=== PATIENT | female | born 1945 | race Caucasian/White ===

== ENCOUNTER 2018-07-31 02:50 | Outpatient (CLI) | payer OTHER, SELFPAY ==
[2018-07-31 11:24] LABS: Anion Gap 8.6 mmol/L (3-11); BUN 15 mg/dL (7-18); CO2 31.4 mmol/L (21.0-32.0); CREATININE 0.81 mg/dL (0.55-1.02); Calcium 9.3 mg/dL (8.5-10.1); Chloride 103 mmol/L (98-107); Cholesterol 194 mg/dL (50-200); Glucose 94 mg/dL (70-100); HDL Cholesterol 65 mg/dL (40-60); LDL CHOLESTEROL 97 mg/dL (<100); Potassium 4.2 mmol/L (3.5-5.1); Sodium 143 mmol/L (136-145); Triglyceride 174 mg/dL (30-150)
[2018-07-31 11:29] LABS: Hemoglobin A1C 4.9 % (4.5-6.2)
== END 2018-07-31 03:10 ==
PROVIDERS: PCP Nurse Practitioner Family; Visit Provider Nurse Practitioner Family
DX: E78.5 Hyperlipidemia, unspecified (principal); I10 Essential (primary) hypertension; Z13.1 Encounter for screening for diabetes mellitus
CPT/HCPCS: 36415; 80048; 80061; 83721; 83036

== ENCOUNTER 2018-08-17 00:17 | Outpatient (CLI) | payer OTHER, SELFPAY ==
--- NOTE | 2018-08-17 07:30 | DI.MAMMO_ITS ---
SYMPTOM/DIAGNOSIS: SCREENING MAMMOGRAMS: Mammograms were interpreted according to the usual protocol including computer analysis with CAD system, tomosynthesis and C view imaging. Comparison is made with exams from [id number]. The breasts are composed of scattered fibroglandular densities. No suspicious masses or suspicious microcalcifications are seen. There has been no significant change. IMPRESSION: Category 1, negative mammogram. Yearly screening mammography is recommended. Breast density, category B. SA ASSESSMENT OF FINDINGS: Negative. Category 1. Patient will receive a letter notifying them of these results. BI-RADS category B. There are scattered areas of fibroglandular density.
== END 2018-08-17 00:37 ==
PROVIDERS: PCP Nurse Practitioner Family; Visit Provider Nurse Practitioner Family
DX: Z12.31 Encounter for screening mammogram for malignant neoplasm of breast (principal)
CPT/HCPCS: 77063; 77067

== ENCOUNTER → 2018-10-09 08:15 | Outpatient (BNVA) | payer OTHER, SELFPAY | PROVIDERS: PCP Nurse Practitioner Family; Referring Provider Nurse Practitioner Family; Visit Provider Surgery | DX: Z87.19 Personal history of other diseases of the digestive system (principal); I10 Essential (primary) hypertension | CPT/HCPCS: 99213 ==

== ENCOUNTER 2018-11-10 07:01 | Day surgery (SDC) | payer OTHER, SELFPAY ==
--- NOTE | 2018-11-10 06:42 | W.PM.ENDDOP ---
Date of service: 11/10/18 Time of Service: 08:40 Endoscopy Report DATE OF PROCEDURE: 11/10/18 PRE-OP DIAGNOSIS: Cueva's esophagus POST-OP DIAGNOSIS: other (Cueva's, Duodenal mass, gastric inflammation) PROCEDURE: EGD with biopsies SURGEON: Alysha Joy ANESTHESIA: other (General/ ASA 2 /Arley Mendez, JOSEPHINE) ESTIMATED BLOOD LOSS: 3 PATHOLOGY: other (Duodenal mass bx, pyloric bx, GE junction bx) COMPLICATIONS: None DISPOSITION: same day INDICATIONS: Mrs. Metz is a pleasant 72 year old female with a PMHx significant for Cueva's with low grade dysplacia. [place] [facility] [place] recommended repeat EGD in 1 year. Risks, benefits and complications have been reviewed. Complications include but are not limited to bleeding, pain, perforation, sore throat, aspiration, and adverse reaction to the medications. Questions were entertained and answered to their satisfaction and they wished to proceed. No guarantees were given or implied. FINDINGS: Carpet like polyp in the duodenal bulb Inflammation of the pylorus Cueva's esophagitis PROCEDURE DESCRIPTION: After informed consent was obtained the patient was take to the procedure room and placed in a supine position. Monitors were applied and a time out was done. The patients name, date of , procedure type, allergies to medications and metal in their body was reviewed. A bite block was placed and the patient was sedated. Once sedated and comfortable the gastroscope was advanced through the oropharynx which was grossly normal into the esophagus. The proximal and mid-esophagus were normal. In the distal esophagus there was inflammation noted and also irregularity of the GE junction noted. The scope was advanced into the stomach and through the pylorus into the 3rd portion of the duodenum. The 2nd and third portion of the duodenum was noted to be normal. In the 1st portion there was a carpet like mass. Biopsies were done of the mass. The scope was retracted back into the stomach and inflammation of the pylorus was noted. Biopsies were done. There were no ulcers. The scope was retro-flexed. The cardia and fundus were noted to be normal. The scope was retracted back into the esophagus and biopsies were done of the GE junction for surveillance of her known Cueva's. The Z line was irregular. The GE junction was at 35 cm. The scope was removed and the patient was woken up and taken back to [facility] in stable condition. Follow up: Will await pathology results and have her follow up with [facility] as well.
--- NOTE | 2018-11-10 06:45 | PDOC.DSDIS_ITS ---
Discharge Plan Disposition Patient Disposition: HOME Condition: Good Discharge Details Reason For Visit: Cueva's with dysplacia Attending Provider: Alysha Joy Primary Care Provider: Mary Lou Palacios Home Meds and New Rx's Prescriptions: Continued varicella-zoster gE-AS01B (PF) 50 mcg/0.5 mL suspension for reconstitution 0.5 ml IM ONCE Qty: 1 RF: 0 multivitamin [Multi-Day] 1 EACH tablet 1 ea PO DAILY RF: 0 calcium carbonate-vitamin D3 1 EACH tablet 1 ea PO BID RF: 0 lisinopril-hydrochlorothiazide 10-12.5 mg tablet 1 tab PO DAILY Qty: 90 RF: 4 simvastatin 40 mg tablet 40 mg PO DAILY Qty: 90 RF: 4 Discharge Instructions Instructions: Upper Endoscopy (GEN) Additional Instructions: Findings: Again noted was a mass/ large polyp of the duodenum. I re-did the biopsies Inflammation of the pylorus Cueva's Follow up: I will call with results and I would [place] [facility] [place] Please call if you develop: fevers >101.5 Nausea or Vomiting Abdominal pain that is not transient DAY SURGERY UNIT POST COLONOSCOPY INSTRUCTIONS 1. Because there will be medication in your system for the next 24 hours, you may feel a little sleepy. Your coordination will be affected. Therefore: a. Do not drive or operate dangerous equipment for 24 hours. b. Do not drink alcohol beverages for 24 hours (not even beer). c. Plan to go home and rest for the day. 2. Generally there are no restrictions on your activity after a day or so has gone by, but you may feel a bit fatigued for a few days. 3 After you arrive home you may have a light meal and return to a normal diet as you can tolerate it without feeling sick to your stomach. 4. After surgery, you may feel pain or discomfort. This should be only transient, but if it persists please contact your doctor. 5. If there are any questions regarding the findings of your procedure, please feel free to contact your doctor. 6. If you are unable to contact your doctor with a problem, contact the hospital at [phone]. 7. Continue all your regular medications unless directed otherwise. I understand the above instructions and have no questions. Signature of Patient or Responsible Adult Escort Date/Time Name of Responsible Adult Escort Signature of Nurse Date/Time Activity:: Activity as Tolerated Diet:: As Tolerated Discharge Orders Discharge Orders: Discharge Order (Routine); Ordered 11/10/18 Ordered By: Alysha Joy DS: Diagnosis Discharge Diagnosis (1) History of Cueva's esophagus: Status: Acute (2) EGD - MAC: Status: Acute
[2018-11-10 07:10] VITALS: BP 153/72; PULSE 62; RESP 16; TEMP 36.2; O2SAT 99
[2018-11-10] MEDS: Lactated Ringers 1,000 ML 80 ML IV (07:45)
--- NOTE | 2018-11-10 08:30 | HPE_ITS ---
Date of service: 11/10/18 Time of Service: 08:31 Assessment and Plan (1) History of Cueva's esophagus: Current visit: No Status: Acute P\\ EGD with biopsies Risks, benefits and complications have been reviewed. Complications include but are not limited to bleeding, pain, perforation, sore throat, aspiration, and adverse reaction to the medications. Questions were entertained and answered to their satisfaction and they wished to proceed. No guarantees were given or implied. History of Present Illness Narrative: Mrs. Metz is a pleasant 72 year old female with a history of Cueva's esophagus who is here for a repeat EGD. She was seen at [facility] gastroenterology due to her diagnosis of Cueva's with mild dysplasia. She is status post Sae fundoplication in 2002. Prior to her fundoplication she had a lot of severe reflux type symptoms. Since her Sae she has had no symptoms but continues to have Cueva's with low-grade dysplasia. She had an EGD done in [address] Valencia and he started her on Zantac and had her take that for a year. He then repeated her EGD in 2018 and she continued to have Cueva's with low-grade dysplasia. As she is asymptomatic she is not currently taking any antacids. [facility] recommended another EGD in a year and she is here now to discuss that. She continues to be completely asymptomatic. She has no dysphasia, no heartburn and no burning chest pain. She denies any chest pain, shortness of breath or history of AR. [facility] Medical History Cervical cancer (Resolved ~1992) Essential hypertension (Resolved 06/09/13) GERD (gastroesophageal reflux disease) (Resolved) History of Cueva's esophagus (Resolved 2001) Hyperlipidemia (Resolved 07/17/12) Osteoarthritis (Resolved 07/28/17) Sigmoid diverticulosis (Resolved) Surgical History Colonoscopy - IV Sedation (Inactive 11/06/16) EGD - MAC (Acute 11/10/18) History of bilateral ligation of fallopian tubes (Inactive) S/P tonsillectomy (Inactive) Status post LEEP (loop electrosurgical excision procedure) of cervix (Inactive ~1992) Status post Sae fundoplication (Inactive 04/13/02) Family History Mother Essential hypertension Hyperlipidemia Type 2 diabetes mellitus Colon cancer Father Type 2 diabetes mellitus Sister Essential hypertension Hyperlipidemia Neoplasm Sister No problems noted. Sister No problems noted. Sister No problems noted. Sister No problems noted. Brother Neoplasm Brother No problems noted. Brother No problems noted. Son Hypertension Son Hypertension Hyperlipidemia Daughter Depression Maternal Grandfather Heart disease Maternal Grandmother Heart disease Paternal Grandfather Hypertension Heart disease Paternal Grandmother Heart disease Social History Smoking/Tobacco Use Status: Never Second Hand Exposure: Yes Alcohol Intake: current Alcohol Intake frequency: holidays/special occasions only Alcohol type: wine and hard liquor Drug use: Never Substance use type: does not use Caregiver/Support person: No Household members: none Housing: house Communication Needs: None Do you need help understanding health information?: Rarely Pets and animals: Yes Pets and animals: cat(s) Sexually active: No Do you think of yourself as: straight/heterosexual Current gender identity: female What is your relationship status?: How often do you talk on the phone with friends or family?: three or more times per week How often do you get together with friends or relatives?: three or more times per week How often do you attend quaker or zoroastrianism services?: 1-3 times per year Do you belong to any clubs or organized social groups?: no Panel score (0-1 are the most socially isolated patients): 1 What type of physical activity do you participate in: walking Duration: > 90 minutes/day Frequency: daily Yoly/Mormonism: Gnosticist Special yoly needs: No Seatbelt use: always Helmet use: No Drive intox or ride w/intox 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 Do you feel safe at home: Yes Female Reproductive History Menstrual Menopause type: natural History History 4 Para Hx # Term Pregnancies Multiple births Hx # Pregnancies Ectopic pregnancies AB induced Hx Number of Living Children 3 AB spontaneous 1 Meds Home Medications Medication Instructions Recorded Confirmed Type calcium carbonate-vitamin D3 1 ea PO BID 07/16/12 11/10/18 History multivitamin [Multi-Day] 1 ea PO DAILY 07/16/12 11/10/18 History varicella-zoster gE-AS01B (PF) 50 0.5 ml IM ONCE #1 each 08/03/18 10/09/18 Rx mcg/0.5 mL IM susp kit lisinopril 10 1 tab PO DAILY #90 tab-cap 10/14/18 11/10/18 Rx mg-hydrochlorothiazide 12.5 mg tablet simvastatin 40 mg tablet 40 mg PO DAILY #90 tab-cap 10/14/18 11/10/18 Rx Allergies Allergy/AdvReac Type Severity Reaction Status Date / Time cephalexin [Cephalexin] Allergy Mild Verified 11/10/18 07:17 clindamycin Allergy Mild Verified 11/10/18 07:17 hydrocodone Allergy Mild itching Verified 11/10/18 07:17 Penicillins Allergy Unknown Verified 11/10/18 07:17 atorvastatin AdvReac Mild Verified 11/10/18 07:17 Exam Resp Effort & Inspection: normal respiratory effort Auscultation: clear to auscultation bilaterally Cardio Rate: regular rate Rhythm: regular rhythm Results Last Vital Signs Temp 97.2 F L 11/10/18 07:10 Pulse 62 11/10/18 07:10 Resp 16 11/10/18 07:10 BP 153/72 H 11/10/18 07:10 Pulse Ox 99 11/10/18 07:10
[2018-11-10] MEDS: Lidocaine 2% Viscous 15 ML CUP (08:35)
[2018-11-10] MEDS: Lidocaine 2% Pres-Free 5 ML VIAL (08:35)
[2018-11-10] MEDS: Midazolam 2 MG/2 ML VIAL (08:35)
[2018-11-10] MEDS: fentaNYL 100 MCG/2 ML VIAL (08:35)
--- NOTE | 2018-11-10 08:43 | STOM_PTH ---
PATIENT: Ashlie Metz LOC: [facility] U#:[id number] AGE/SX: 72/F ROOM: RE11/10/[address]: Alysha Joy MD : 1945 BED: DIS: 11/10/2018 SPEC #: [id number] RECD: 11/10/18 13:01 STATUS: [facility] #: [id number] STEVE: 11/10/18 08:[address]: Alysha Joy DEPT: Surgical Specimen RECD BY: Patricia Salinas ENTERED: 11/10/18 13:03 SP TYPE: STOMACH OTHR DR: KURT Gerard Tissues: 1 - BIOPSY BOWEL 2 - STOMACH BIOPSY 3 - ESOPHAGUS BIOPSY Procedures: GROSS AND MICRO LEVEL 4 Comments: [id number]
[2018-11-10 09:30] VITALS: BP 109/60; PULSE 54; RESP 17; TEMP 36; O2SAT 96
== END 2018-11-10 10:20 | disposition home or self-care (01) ==
LOC: SUR 07:01
PROVIDERS: PCP Nurse Practitioner Family; Visit Provider Surgery
PROC: 0DJ68ZZ Inspection of Stomach, Via Natural or Artificial Opening Endoscopic (ICD-10-PCS; CPT 43235; principal; 2018-11-10 08:30)
DX: K31.7 Polyp of stomach and duodenum (principal); Z87.19 Personal history of other diseases of the digestive system; K31.89 Other diseases of stomach and duodenum; K21.0 Gastro-esophageal reflux disease with esophagitis; I10 Essential (primary) hypertension
CPT/HCPCS: 43239; 88305; NC; J2250; J3010

== ENCOUNTER 2020-07-17 04:03 | Outpatient (CLI) | payer OTHER, SELFPAY ==
[2020-07-17 13:21] LABS: Anion Gap 10.3 mmol/L (3-11); BUN 18 mg/dL (7-18); CO2 29.7 mmol/L (21.0-32.0); CREATININE 0.8 mg/dL (0.55-1.02); Calcium 9.1 mg/dL (8.5-10.1); Calculated LDL 97 mg/dL (<100); Chloride 104 mmol/L (98-107); Cholesterol 198 mg/dL (<200); Glucose 91 mg/dL (74-106); HDL Cholesterol 66 mg/dL (40-60); Potassium 4.2 mmol/L (3.5-5.1); Sodium 144 mmol/L (136-145); Triglyceride 175 mg/dL (<150)
== END 2020-07-17 04:04 | disposition home or self-care (01) ==
LOC: LOS 04:03
PROVIDERS: PCP Nurse Practitioner Family; Visit Provider Nurse Practitioner Family
DX: E78.5 Hyperlipidemia, unspecified (principal)
CPT/HCPCS: 36415; 80048; 80061

== ENCOUNTER 2020-07-28 01:09 | Outpatient (CLI) | payer OTHER, SELFPAY ==
[2020-07-28 12:22] LABS: HGB 11.9 g/dL (11.2-15.7); MCH 31.5 pg (27.0-33.0); MCHC 32.2 % (32.0-36.0); MCV 97.9 fL (80-95); MPV 11.6 fL (8.0-11.0); Platelet Count 243 10^3/uL (130-400); RBC 3.78 10^6/uL (3.93-5.22); RDW 16.6 % (11.7-14.6); RDW-SD 59.7 fL
[2020-07-28 12:44] LABS: ALT 24 U/L (14-59); AST 16 U/L (15-37); Alkaline Phosphatase 95 U/L (46-116); Bilirubin, Direct 0.1 mg/dL (0.0-0.2); Bilirubin, Total 0.5 mg/dL (0.2-1.0); TSH (W/Ref FT4) 2.18 uIU/mL (0.36-3.74); Total Protein 7.2 g/dL (6.4-8.2)
== END 2020-07-28 01:10 | disposition home or self-care (01) ==
LOC: LOS 01:09
PROVIDERS: PCP Nurse Practitioner Family; Visit Provider Nurse Practitioner Family
DX: R53.83 Other fatigue (principal)
CPT/HCPCS: 36415; 80076; 85027; 84443

== ENCOUNTER 2020-09-22 01:12 | Outpatient (CLI) | payer OTHER, SELFPAY ==
--- NOTE | 2020-09-22 | DI.MAMMO_ITS ---
Exam(s) MAMMO SCREENING EXAM: MAMMO SCREENING CLINICAL HISTORY: SCREENING, Z12.39 TECHNIQUE: Bilateral full field digital CC and MLO mammographic images were obtained with 3D tomosyn thesis and utilizing computer aided detection (CAD). COMPARISON: Available for comparison. FINDINGS: Masses/Architectural Distortion: No suspicious masses or areas of architectural distortion are identi fied. The well-circumscribed nodule with a coarse calcification in the right breast is stable. Microcalcifications: No suspicious pleomorphic-type are seen. Skin Thickening/Nipple Retraction: None. IMPRESSION: 1. No significant interval change with no specific features of malignancy noted. 2. Unless there is more urgent need, screening mammography is recommended, as per [employer] guidelines. BI-RADS Category 2 - Benign Findings Breast Density - Category B - Scattered areas of fibroglandular density Breast density category C or D implies that the patient has dense breast tissue. Dense breast tissue is very common and is not abnormal but dense breast tissue can make it harder to find cancer on a ma mmogram. Also, dense breast tissue may increase their breast cancer risk. This information about the result of the mammogram report was provided to the patient to raise their awareness. Use this report when you speak with the patient about their risks for breast cancer, which includes their family hist ory. At that time, you may recommend for more screening tests (Ultrasound or MRI) as they might be us eful based on their risk. A negative radiographic report should not delay biopsy if a dominant or clinically suspicious mass is present. Up to ten percent of cancers are not identified on mammography. A negative report may reinforce clinical impression. Adenosis and dense breasts may obscure an underlying neoplasm. False positive reports average 6 to 10%. Patient will receive a letter notifying them of these results.
== END 2020-09-22 01:32 ==
PROVIDERS: PCP Nurse Practitioner Family; Visit Provider Nurse Practitioner Family
DX: Z12.31 Encounter for screening mammogram for malignant neoplasm of breast (principal); R92.8 Other abnormal and inconclusive findings on diagnostic imaging of breast
CPT/HCPCS: 77063; 77067

== ENCOUNTER 2021-07-20 02:32 | Outpatient (CLI) | payer MEDICARE, SELFPAY ==
[2021-07-20 15:35] LABS: BUN 22 mg/dL (7-18); CREATININE 0.9 mg/dL (0.55-1.02); Calcium 9.3 mg/dL (8.5-10.1); Chloride 104 mmol/L (98-107); Glucose 95 mg/dL (74-106); Potassium 4.2 mmol/L (3.5-5.1); Sodium 142 mmol/L (136-145)
== END 2021-07-20 02:33 | disposition home or self-care (01) ==
LOC: LBO 02:32
PROVIDERS: PCP Nurse Practitioner Family; Visit Provider Nurse Practitioner Family
DX: I10 Essential (primary) hypertension (principal)
CPT/HCPCS: 36415; 80048

== ENCOUNTER → 2021-12-21 00:12 | Outpatient (CLI) | payer MEDICARE, SELFPAY ==
--- OUTSIDE RECORDS SUMMARY | 2021-10-23 00:15 | XMS_ITS | Encounter Summary ---
:1945 [place] [address] Care Team Providers Name Role Phone Mary Lou Palacios APRN Primary Care Provider Encounter Details Date Type Department Care Team Description 09/08/2019 Telephone Gastroenterology [place] [facility] [place] [address] Social History Tobacco Use Types Packs/Day Years Used Date Never Smoker Smokeless Tobacco: Never Used Alcohol Use Standard Drinks/Week Comments Yes 0 (1 standard drink = 0.6 oz pure alcoho l) rarely Alcohol Habits Answer Date Recorded How often do you have a drink containing alcohol? Monthly or less 12/10/2018 How many drinks containing alcohol do you have on a Not aske d typical day when you are drinking? How often do you have six or more drinks on one Not asked occasion? Comment: rarely 01/20/2019 Sex Assigned at Date Recorded Not on file documented as of this encounter Miscellaneous Notes Telephone Encounter - Jesús Trevizo - 09/08/2019 3:45 PM EDT Spoke to Patient who would like to delay procedure to November. IB to Kristopher to confirm. Telephone Encounter - Jesús Trevizo - 09/08/2019 3:35 PM EDT Ashlie Metz [id number] Diagnosis/Indication: Duodenal mucosal mass/polyp 1. Have you ever had a/an Upper Endoscopy before? Yes: Date Apr 2019 If yes, did you have any problems with the procedure? No What type of sedation was used: General Anesthesia 2. Do you take any Blood Thinners? No 3. Do you have a Pacemaker or Defibrillator device? No 4. Are you a diabetic? No 5. Do you have any Allergies to Eggs, Latex or Medications? Yes: See Chart 6. Do you take any Oral Iron Supplements (Including multi-vitamins)? No 7. Do you have a history of three or more abdominal surgeries? No 8. Have you had a problem with sedation or anesthesia? No 9. Do you have a c-pap machine or oxygen tank? Neither 10. Do you take prescription narcotic pain medications, including suboxone or methodone? No 11. Do you have a preference regarding the gender of your provider? No Preference 12. Is there any other information you would like to give us to aid in scheduling? No 13. Say to patient: You must have a responsible libertarian who will drive you to your procedure, stay on campus for the entire duration of your procedure, and drive you home from your procedure? Height: 4'8 Weight: 150 BMI: 33.6 Age:73 y.o. documented in this encounter Plan of Treatment Upcoming Encounters Date Type Specialty Care Team Description 01/18/2022 Hospital Encounter Gastroenterology Good Summers MD [facility] [address] [place] [address] 01/18/2022 Surgery Gastroenterology Good Summers, EGD, U PPER GI ENDOSCOPY [facility] [address] [place] [address] Scheduled Procedures Name Priority Associated Diagnoses Date/Time EGD, UPPER GI ENDOSCOPY Adenomatous duodenal jose yp 01/18/2022 11:30 AM EDT documented as of this encounter Visit Diagnoses Not on filedocumented in this encounter Care Teams Voice Pathologist Relationship Specialty Start Date End Date Mary Lou Palacios APRN PCP - General Family Medicine 01/20/[address] [place] [address] documented as of this encounter
--- OUTSIDE RECORDS SUMMARY | 2021-10-23 00:15 | XMS_ITS | Encounter Summary ---
:1945 Author Organization [facility] [place] [address] Care Team Providers Name Role Phone Mary Lou Palacios APRN Primary Care Provider Reason for Visit Auth/Cert Specialty Diagnoses / Procedures Referred By Contact Refer red To Contact Diagnoses Personal history of colonic polyps Please schedule for EGD 45 min in 6 months from 04/21/19 Duodenal mucosal mass/polyp Procedures PRO UPPER GI ENDOSCOPY, DIAGNOSTIC EGD, UPPER GI ENDOSCOPY Referral ID Status Reason Start Date Expiration Date Visits Requ ested Visits Authorized [id number] 1 1 Encounter Details Date Type Department Care Team Description 11/12/2019 Anesthesia Event [place]ology at [facility] [place] Smooth Ochoa MD [facility] [place] [address] [facility] [place] [address] [place] [address] Anesthesia Record Procedure Summary Procedure Name Responsible Anesthesia Start Anesthesia Stop Anesthesiologist Time Time EGD, W Smooth Ahuja MD 11/12/19 0827 11/12/19 09 13 SUBMUCOSAL INJECTION(S) (N/A Trunk) Events Date Time Event Comment 11/12/2019 0826 0827 AN Verify 0827 Start 0827 An Start Data 0834 An Induction 0834 Anesthesia Ready 0913 an stop data 0913 Recovery or ICU Handoff Patient care was transferred to the destination unit staff after review of the patient's medica l history, current anesthetic/surgi giuliana status and plan, according to the Provider Handoff Checklist. 0913 Stop Name Total IV Lidocaine 50 mg Propofol 150 mg Propofol INF 377.4 mg lactated ringers infusion 400 mL Agents Name O2 Blood No blood administrations on file. Lines, Drains, and Airways Type Details Placement Removal PIV 11/12/19; 0800; median 11/12/19 0800 by Robert, 11/12/19 1016 by Mark, cubital vein (antecubital MARIO Holder RN fossa), right; [id number] catheter system; 20 gauge; Marc Jones RN; tolerated well, appears comfortable; no longer indicated; 11/12/19; 1016 documented in this encounter Social History Tobacco Use Types Packs/Day Years Used Date Never Smoker Smokeless Tobacco: Never Used Alcohol Use Standard Drinks/Week Comments Yes 0 (1 standard drink = 0.6 oz pure alcoho l) Alcohol Habits Answer Date Recorded How often do you have a drink containing alcohol? Monthly or less 12/10/2018 How many drinks containing alcohol do you have on a Not aske d typical day when you are drinking? How often do you have six or more drinks on one Not asked occasion? Comment: 11/12/2019 Sex Assigned at Date Recorded Not on file documented as of this encounter OR Notes Anesthesia Preprocedure Evaluation - Smooth Ochoa MD - 11/11/2019 3:55 PM EDT Pre-Anesthesia Evaluation for: Ashlie Metz a 73 y.o. female. Procedure(s): EGD, UPPER GI ENDOSCOPY There are no active problems to display for this patient. Past Medical History: Diagnosis Date ??? Cervical cancer ??? Dyslipidemia ??? Hypertension Past Surgical History: Procedure Laterality Date ??? SECTION ??? ESOPHAGOGASTRIC FUNDOPLICATION ? ? PRO EDG FLEXIBLE TRANSORAL ABLATE TUMOR POLYP/LESION W/DILATION & WIRE N/A 01/20/2019 EGD, TRANSORAL; WITH ABLATION OF TUMOR(S), POLYP(S), OR OTHER LESION(S) (WRVU 4.26) performed by Good Summers MD at [facility] ENDOSCOPY ? ? PRO EDG FLEXIBLE TRANSORAL ABLATE TUMOR POLYP/LESION W/DILATION & WIRE N/A 04/21/2019 EGD, TRANSORAL; WITH ABLATION OF TUMOR(S), POLYP(S), OR OTHER LESION(S) (WRVU 4.26) performed by Good Summers MD at [facility] ENDOSCOPY ??? PRO ENDOSCOPIC US EXAM, ESOPH N/A 01/20/2019 UPPER EUS- ENDOSCOPIC ULTRASOUND performed by Good Summers MD at [facility] ENDOSCOPY ??? PRO ESOPHAGOSCOPY, W/DIR SUBMUC INJECTION(S) N/A 01/20/2019 ESOPHAGOSCOPY, DIAGNOSTIC, WITH DIRECTED SUBMUCOSAL INJECTION (WRVU 1.82) performed by Good Summers MD at [facility] ENDOSCOPY ??? PRO UP GI ENDOSCOPY, REMV TUMOR, SNARE 01/20/2019 EGD, W REMOVAL TUMOR/POLYPS/LESIONS BY SNARE TECHNIQUE performed by Good Summers MD at [facility] ENDOSCOPY ??? PRO UPPER GI ENDOSCOPY, W/DIR SUBMUC INJ N/A 04/21/2019 EGD, W DIRECTED SUBMUCOSAL INJECTION(S) performed by Good Summers MD at [facility] ENDOSCOPY ??? TUBAL LIGATION Social History Tobacco Use ??? Smoking status: Never Smoker ??? Smokeless tobacco: Never Used Substance Use Topics ??? Alcohol use: Yes Frequency: Monthly or less Comment: rarely Social History Substance and Sexual Activity Drug Use Never Allergies Allergen Reactions ??? Cephalosporins CIS - Hives ??? Penicillins CIS - Unknown Medications: MAR and/or home medications have been reviewed. Physical Exam: No data found. There is no height or weight on file to calculate BMI. Airway Assessment: Mallampati: III TM distance: >3 FB Neck ROM: full Cardiovascular Assessment: Pulmonary Assessment: Dental Assessment: - normal exam Misc Assessment: Patient is wearing No contact(s). IV access: Peripheral line Anesthesia Plan: ASA 2 MAC, with a(n) intravenous induction 73 y.o. female duodenal mass/polyp who presents for f/u EGD. Medical history: also significant for HTN, HLD Anesthesia history: Tolerated prior EGD/EUS under GA. Last EGD in Apr this year was successfully performed under MAC. Airway: needed CMAC, gr3 with DL. PLAN - Monitored anesthesia care - Backup: GA with LMA/ETT if aspiration risk, including uGIB,n/v Region - Other Informed Consent: Anesthetic plan and risks discussed with patient. Plan discussed with DTP OPERATOR. PAT Clinic Note documented in this encounter Plan of Treatment Upcoming Encounters Date Type Specialty Care Team Description 01/18/2022 Hospital Encounter Gastroenterology Good Summers MD [facility] [address] [place] [address] 01/18/2022 Surgery Gastroenterology Good Summers, EGD, U PPER GI MD ENDOSCOPY [facility] [address] [place] [address] Scheduled Procedures Name Priority Associated Diagnoses Date/Time EGD, UPPER GI ENDOSCOPY Adenomatous duodenal jose yp 01/18/2022 11:30 AM EDT documented as of this encounter Visit Diagnoses Not on filedocumented in this encounter Administered Medications Inactive Administered Medications - up to 3 most recent administrations Medication Order MAR Action Action Date Dose Rate Site lidocaine (PF) (XYLOCAINE) 100 mg/5 Given 11/12/2019 8:34 AM EDT 50 mg mL (2 %) injection PRN, Starting on Fri11/12/19 at 0834, Until Fri11/12/19 at 0913, Anesthesia Intra-op, Routine propofol (DIPRIVAN) 10 mg/mL bolus injection Given 0 9:05 AM EDT 50 mg (Anesthesia) PRN, Starting on Fri11/12/19 at 0834, Until Fri11/12/19 at 0913, Anesthesia Intra-op Given 11/12/2019 8:37 AM EDT 50 mg Given 11/12/2019 8:34 AM EDT 50 mg propofol (DIPRIVAN) infusion New Bag 11/12/2019 8:34 AM 150 mcg/kg/min 61.2 mL/hr CONTINUOUS PRN, Starting on EDT Fri11/12/19 at 0834, Until Fri11/12/19 at 0913, Anesthesia Intra-op, Routine documented in this encounter Care Teams Enrober Tender Relationship Specialty Start Date End Date Mary Lou Palacios APRN PCP - General Family Medicine 01/20/19 [facility] [address] [place] [address] documented as of this encounter
--- OUTSIDE RECORDS SUMMARY | 2021-10-23 00:15 | XMS_ITS | Encounter Summary ---
:1945 Author Organization [facility] [place] [address] Care Team Providers Name Role Phone Mary Lou Palacios APRN Primary Care Provider Encounter Details Date Type Department Care Team Description 02/25/2019 Telephone Gastroenterology at [facility] Good Summers MD [facility] Godfrey [address]houn [facility] [place] [address] [place] [address] [phone] (Wo rk) Social History Tobacco Use Types Packs/Day Years [...] this encounter Miscellaneous Notes Telephone Encounter - Good Summers MD - 02/25/2019 9:51 AM EST I called to follow up with Ms Metz, no answer, left message to call back. Home number has been disconnected. Would like to confirm that she has follow up endoscopy. documented in this encounter Plan of Treatment Upcoming Encounters Date Type Specialty Care Team Description 01/18/2022 Hospital Encounter Gastroenterology Good Summers MD [facility] [place] [address] 01/18/2022 Surgery Gastroenterology Good Summers, EGD, U PPER GI ENDOSCOPY [facility] [address] [place] [address] Scheduled Procedures Name Priority Associated Diagnoses Date/Time EGD, UPPER GI ENDOSCOPY Adenomatous duodenal jose yp 01/18/2022 11:30 AM EDT documented as of this encounter Visit Diagnoses Not on filedocumented in this encounter Care Teams Skein Bander Relationship Specialty Start Date End Date Mary Lou Palacios APRN PCP - General Family Medicine 01/20/[address] [place] [address] [address] [place] [address] documented as of this encounter
--- OUTSIDE RECORDS SUMMARY | 2021-10-23 00:15 | XMS_ITS | Encounter Summary ---
:1945 Author Organization [place] [address] Care Team Providers Name Role Phone Mary Lou Palacios APRN Primary Care Provider Encounter Details Date Type Department Care Team Description 07/18/2020 Telephone G[place]ology at [facility] [place] Kourtney Rodriguez [facility] [place] [address] Social History Tobacco Use Types Packs/Day Years Used Date Never Smoker Smokeless Tobacco: Never Used Alcohol Use Standard Drinks/Week Comments Yes 0 (1 standard drink = 0.6 oz pure alcoho l) holidays Alcohol Habits Answer Date Recorded How often do you have a drink containing alcohol? Monthly or less 12/10/2018 How many drinks containing alcohol do you have on a Not aske d typical day when you are drinking? How often do you have six or more drinks on one Not asked occasion? Comment: holidays 11/12/2019 Sex Assigned at Date Recorded Not on file documented as of this encounter Plan of Treatment Upcoming Encounters Date Type Specialty Care Team Description 01/18/2022 Hospital Encounter Gastroenterology Good Summers MD [facility] [address] [place] [address] 01/18/2022 Surgery Gastroenterology Good Summers, EGD, U PPER GI ENDOSCOPY [facility] [address] [place] [address] Scheduled Procedures Name Priority Associated Diagnoses Date/Time EGD, UPPER GI ENDOSCOPY Adenomatous duodenal jose yp 01/18/2022 11:30 AM EDT documented as of this encounter Visit Diagnoses Not on filedocumented in this encounter Care Teams Licensing Officer Relationship Specialty Start Date End Date Mary Lou Palacios APRN PCP - General Family Medicine 01/20/[address] [facility] [address] [place] [address] documented as of this encounter
--- OUTSIDE RECORDS SUMMARY | 2021-10-23 00:15 | XMS_ITS | Encounter Summary ---
:1945 Author Organization [facility] [place] [address] Care Team Providers Name Role Phone Mary Lou Palacios APRN Primary Care Provider Reason for Visit Auth/Cert Specialty Diagnoses / Procedures Referred By Contact Refer red To Contact Diagnoses Esophagus, Cueva's 4 - 6 ??months for surveillance pending Procedures PRO UPPER GI ENDOSCOPY, DIAGNOSTIC PRO UPPER GI ENDOSCOPY, BIOPSY PRO UP GI ENDOSCOPY, REMV TUMOR, SNARE PRO ANESTH, UGI ENDOSCOPY NOS EGD, UPPER GI ENDOSCOPY Referral ID Status Reason Start Date Expiration Date Visits Requ ested Visits Authorized [id number] 1 1 Encounter Details Date Type Department Care Team Description 07/14/2020 Hospital Encounter Gastroenterology at [facility] Good Summers, [facility] [place] [address] [facility] [phone] [place] [address] Social History Tobacco Use Types Packs/Day Years [...] on file documented as of this encounter Last Filed Vital Signs Vital Sign Reading Time Taken Comments Blood Pressure 145/54 07/14/2020 12:00 PM EDT Pulse 66 07/14/2020 8:43 AM EDT Temperature 37.1 ??C (98.8 ??F) 07/14/2020 8:43 AM EDT Respiratory Rate 16 07/14/2020 12:00 PM EDT Oxygen Saturation 98% 07/14/2020 12:00 PM EDT Inhaled Oxygen Concentration - - Weight 66.7 kg (147 lb) 07/14/2020 8:43 AM EDT Height 142.2 cm (4' 8) 07/14/2020 8:43 AM EDT Body Mass Index 32.96 07/14/2020 8:43 AM EDT documented in this encounter Discharge Instructions Discharge InstructionsDalia Flores RN - 07/14/2020 11:23 AM EDT Upper GI Endoscopy: What to Expect at Home Your Recovery You will be able to go home after your doctor or nurse checks to make sure you are not having any problems. You may have to stay overnight if you had treatment during the test. You may have a sore throat for a day or two after the test. This care sheet gives you a general idea about what to expect after the test. How can you care for yourself at home? Activity Rest when you feel tired. ?? You can do your normal activities when it feels okay to do so. Diet ?? Follow your doctor's directions for eating. ?? Unless your doctor has told you not to, drink plenty of fluids. This helps to replace the fluidsthat were lost during the prep. ?? Do not drink alcohol. Medicines ?? Your doctor will tell you if and when you can restart your medicines. He or she will also give you instructions about taking any new medicines. ?? If you take blood thinners, such as warfarin (Coumadin), clopidogrel (Plavix), or aspirin, be sure to talk to your doctor. He or she will tell you if and when to start taking those medicines again.Make sure that you understand exactly what your doctor wants you to do. ?? If polyps were removed or a biopsy was done during the test, your doctor may tell you not to take aspirin or other anti-inflammatory medicines for a few days. These include ibuprofen (Advil, Motrin) and naproxen (Aleve). ?? If you have a sore throat the day after the procedure, use an pddm-ejh-eslqlgz spray to numb yourthroat. Sucking on throat lozenges and gargling with warm salt water may also help relieve your symptoms. Other instructions ?? For your safety, do not drive or operate machinery until the medicine wears off and you can think clearly. Your doctor may tell you not to drive or operate machinery until the day after your test. ?? Do not sign legal documents or make major decisions until the medicine wears off and you can think clearly. The anesthesia can make it hard for you to fully understand what you are agreeing to. Additional Information for Sedation Patients For patients who received sedation: ?? You may have received medications before and/or during your procedure which effects your judgement and reaction time. ?? Do not drive, operate machinery, drink alcoholic beverages or make important decisions for 24 hours. ?? Be careful on stairs as you may be unsteady on your feet. ?? You may eat a regular diet as tolerated. ?? Do not smoke if you are alone. ?? IV site: Slight redness or tenderness is normal, you can use a warm compress if you would like. If tenderness and/or redness increase or if foul drainage occurs, please contact your Doctor. Please call [phone] before 8pm Mon-Fri with problems, questions or concerns. If you call after 8pm or on weekends, call the Hospital at [phone] and ask to speak to the Sales And Service Consultant chain sales consultant and the gray mixing operator will contact that person for you. When should you call for help? Call [phone] anytime you think you may need emergency care. For example, call if: ?? You passed out (lost consciousness). ?? You pass maroon or bloody stools. ?? You have trouble breathing. Call your doctor now or seek immediate medical care if: ?? You have pain that does not get better after you take pain medicine. ?? You are sick to your stomach or cannot drink fluids. ?? You have new or worse belly pain. ?? You have blood in your stools. ?? You have a fever. ?? You cannot pass stools or gas. Watch closely for changes in your health, and be sure to contact your doctor if you have any problems. Where can you learn more? [facility] View your After Visit Summary and more online at [email or web address] If you would like to provide feedback about your hospital experience, please call the Office of Patient and Family Relations at . If you have received this After Visit Summary in error, please immediately return it in person to the department, or notify the [facility] Privacy Office by calling toll free at between the hours of 8AM and 5PM to arrange for our retrieval of the documents at no cost to you. Content Version: 12.2 ?? [phone] [employer]. Care instructions adapted under license by [facility]. If you have questions about a medical condition or this instruction, always ask your healthcare professional. [employer] disclaims any warranty or liability for your use of this information. documented in this encounter Medications at Time of Discharge Medication Sig Dispensed Refills Start Date End Date acetaminophen (TYLENOL) Take 1,000 mg by 0 500 mg Tablet mouth every 6 hours as needed for Pain. ibuprofen (ADVIL;MOTRIN) Take 800 mg by 0 800 mg Tablet mouth every 6 hours as needed for Pain. lisinopril-hydrochlorothi Take by mouth 0 019 azide daily. 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 There is no problem list on file for this patient. Medications: Reviewed in [facility] Allergies Allergen Reactions ??? Cephalosporins CIS - Hives ??? Penicillins CIS - Unknown Social History/Family History: Reviewed in [facility]. No changes Exam: Patient Vitals for the past 24 hrs: Temp Pulse Resp BP SpO2 O2 Device 07/14/20 0843 37.1 ??C (98.8 ??F) 66 20 148/71 100 % RA Axox3, nad Anicteric, MMM CTAB RRR, no m/r/g abd soft nt nd +bs Assessment and Plan: Proceed with EGD: ASA Grade: ASA 2 - Patient with mild systemic disease with no functional limitations Mallampati score:II (soft palate, uvula, fauces visible) Sedation plan: MAC Risks and benefits of the procedure were discussed with the patient. Consent has been signed. Good Summers MD documented in this encounter Miscellaneous Notes Op Note - Good Summers MD - 07/14/2020 10:55 AM EDT [facility] Operative Note Patient Name: Ashlie Metz : [id number] MR#: [id number] Case Date: 07/14/2020 Surgeon: Surgeon(s) and Role: * Good Summers MD - Primary Preoperative diagnosis: 4 - 6 ??months for surveillance pending Postoperative diagnosis: * No post-op diagnosis entered * Procedure(s): EGD, UPPER GI ENDOSCOPY Please see Provation report for details. documented in this encounter Plan of Treatment Upcoming Encounters Date Type Specialty Care Team Description 01/18/2022 Hospital Encounter Gastroenterology Good Summers MD [facility] [place] [address] 01/18/2022 Surgery Gastroenterology Good Summers, EGD, U PPER GI MD ENDOSCOPY [facility] [place] [address] Scheduled Procedures Name Priority Associated Diagnoses Date/Time EGD, UPPER GI ENDOSCOPY Adenomatous duodenal jose yp 01/18/2022 11:30 AM EDT documented as of this encounter Procedures Procedure Name Priority Date/Time Associated Diagnosis Comme nts EGD, UPPER GI 07/14/2020 10:46 4 - 6 ??months for ENDOSCOPY AM EDT surveillance pending UPPER GI ENDOSCOPY Routine 07/14/2020 10:14 Resul ts for this AM EDT procedure are i n the results section. documented in this encounter Results UPPER GI ENDOSCOPY (07/14/2020 10:14 AM EDT) Component Value Ref Test Analysis Performed At [facility] Range Method Time Signature UPPER GI [facility]OVATION ENDOSCOPY Endoscopy Procedure Date: 07/14/2020 10:14 AM ? Patient Name: Ashlie Metz ? Date of : 1945 ? Age: 74 ? Order #: [id number] ? Instrument Name: [id number] ? Procedure: ? Upper GI endoscopy Indications: ? For therapy of duodenal tumor, For ? 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 Good Summers, Ashlee Randle, RN, ? Kip Marshall Referring MD: ?Mary Lou Adjovu Medicines: ? Propofol per Anesthesia Complications: ? No immediate complications. Procedure: ? Pre-Anesthesia Assessment: ? - Prior to the procedure, a H istory ? and Physical was performed, a nd ? patient medications and aller gies ? were reviewed. The patient is ? competent. The risks and bene fits of ? the procedure and the sedatio n ? options and risks were discus sed with ? the patient. All questions we re ? answered and informed consent was ? obtained. Patient identificat ion and ? proposed procedure were verif ied by ? the physician in the pre-proc edure ? area. Mental Status Examinati on: ? alert and oriented. Airway ? Examination: normal oropharyn geal ? airway and neck mobility. CV ? Examination: normal. Prophyla ctic ? Antibiotics: The patient does not ? require prophylactic antibiot ics. ? Prior Anticoagulants: The pat ient has ? taken no previous anticoagula nt or ? antiplatelet agents. ASA Grad e ? Assessment: II - A patient wi th mild ? systemic disease. After revie wing the ? risks and benefits, the patie nt was ? deemed in satisfactory condit ion to ? undergo the procedure. The an esthesia ? plan was to use monitored ane sthesia ? care (MAC). Immediately prior to ? administration of medications , the ? patient was re-assessed for a dequacy ? to receive sedatives. The hea rt rate, ? respiratory rate, oxygen satu rations, ? blood pressure, adequacy of p ulmonary ? ventilation, and response to care ? were monitored throughout the ? procedure. The physical statu s of the ? patient was re-assessed after the ? procedure. ? The procedure, indications, b enefits, ? risks and alternatives were e xplained ? to the patient. Specifically ? discussed were potential ? complications including, but not ? limited to, bleeding, perfora tion, ? infection, missing a cancer, and ? adverse medication reactions. The ? Endoscope was introduced thro ugh the ? mouth, and advanced to the se cond ? part of duodenum. The patient ? tolerated the procedure well. The ? patient tolerated the procedu re well. ? Findings: ? The examined esophagus was normal. ? The entire examined stomach was normal. ? Polyp tissue identified within the proximal duodenal ? bulb from 5 o'clock to 7 o'clock position. ? Fulguration to ablate the lesion by hybrid APC at 40 ? bhatt was successful. ? Moderate Sedation: ? Not applicable - See Anesthesia documentation Impression: ?-Significantly less polyp tissue, now ? only located in proximal duod enal ? bulb from 5 o'clock to 7 o'cl ock ? position treated with Hybrid APC at ? 40 Bhatt Recommendation: ?- Discharge patient to home. ? - Resume previous diet. ? - Use a proton pump inhibitor PO BID ? for 4 weeks. ? - Repeat upper endoscopy in 9 months ? for surveillance. ? Procedure Code(s): ?? --- Professional --- ? 24897, Esophagogastroduodenos copy, ? flexible, transoral; with abl ation of ? tumor(s), polyp(s), or other ? lesion(s) (includes pre- and ? post-dilation and guide wire passage, ? when performed) Diagnosis Code(s): ?? --- Professional --- ? 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 D49.0, Neoplasm of unspecifie d ? behavior of digestive system ? K31.7, Polyp of stomach and d uodenum ? --- Technical --- ? 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 D49.0, Neoplasm of unspecifie d ? behavior of digestive system ? K31.7, Polyp of stomach and d uodenum CPT copyright 2019 [employer]. All rights reserved. The codes documented in this report are preliminary and upon sugar trucker review may be revised to meet current compliance requirements. Attending Participation: ? I personally performed the entire procedure. ? Good Summers, 07/14/2020 11:13:42 AM Number of Addenda: 0 Note Initiated On: 07/14/2020 10:14 AM Specimen (Source) Anatomical Collection Method Collection Time Re ceived Time Location / / Volume Laterality 07/14/2020 10:14 AM EDT Mary Lou Palacios APRN GENERAL SURGICAL ORDERABLES Performing Organization Address City/State/ZIP Code Phon e Number PROVATION documented in this encounter Visit Diagnoses Not on filedocumented in this encounter Administered Medications Inactive Administered Medications - up to 3 most recent administrations Medication Order MAR Action Action Date Dose Rate Site lactated ringers infusion Rate/Dose Change 07/14/2020 11:09 AM 700 mL/hr 100 mL/hr, Intravenous, EDT CONTINUOUS, Starting on Fri07/14/20 at 0900, Until Fri07/14/20 at 1219, Endoscopy (Day of Procedure) New Bag 07/14/2020 9:00 AM EDT 100 mL/hr 100 mL/hr documented in this encounter Active and Recently Administered Medications Times are shown in EDT. Continuous Medication Order 07/12/2020 07/13/2020 07/14/2020 lactated ringers infusion (CANCELED) 0900 (New Bag - Provider: Joselito Rolon RN)1109 (Rate/Dose Change - Provider: Nela Dee CRNA)1200 (Stopped - Provider: Philippe Townsend RN) 100 mL/hr, at 100 mL/hr, Intravenous, CO NTINUOUS, Starting Fri07/14/20 at 0900, Until Fri07/14/20 at 1219, Endo (Day of Procedure) documented in this encounter Care Teams Client Relations Associate Relationship Specialty Start Date End Date Mary Lou Palacios APRN PCP - General Family Medicine 01/20/[address] [place] [address] documented as of this encounter
--- OUTSIDE RECORDS SUMMARY | 2021-10-23 00:15 | XMS_ITS | Encounter Summary ---
:1945 Author Organization [facility] Address [facility] [place] [address] Care Team Providers Name Role Phone Mary Lou Palacios APRN Primary Care Provider Reason for Visit Auth/Cert Specialty Diagnoses / Procedures Referred By Contact Refer red To Contact Diagnoses EGD again in 9 months please Procedures PRO UPPER GI ENDOSCOPY, DIAGNOSTIC EGD, UPPER GI ENDOSCOPY Referral ID Status Reason Start Date Expiration Date Visits Requ ested Visits Authorized [id number] 1 1 Encounter Details Date Type Department Care Team Description 04/20/2021 Surgery Gastroenterology at [facility] Good Summers, EGD WITH BIOPSY (WRVU [facility] Godfrey calhoun MD [address]) [place] [address] [facility] [phone] [place], [place] [address] Social History Tobacco Use Types Packs/Day [...] Sign Reading Time Taken Comments Blood Pressure 109/56 04/20/2021 9:20 AM EST Pulse 75 04/20/2021 8:05 AM EST Temperature 36.4 ??C (97.5 ??F) 04/20/2021 8:05 AM EST Respiratory Rate - - Oxygen Saturation 94% 04/20/2021 9:20 AM EST Inhaled Oxygen Concentration - - Weight 66.7 kg (147 lb) 04/20/2021 8:05 AM EST Height 143 cm (4' 8.3) 04/20/2021 8:05 AM EST Body Mass Index 32.61 04/20/2021 8:05 AM EST documented in this encounter Discharge Instructions Discharge Aida Lopez RN - 04/20/2021 8:59 AM EST Images from the original note were not included. Upper GI Endoscopy: What to Expect at Home Your Recovery You had an upper GI endoscopy. Your doctor used a thin, lighted tube that bends to look at the inside of your esophagus, your stomach, and the first part of the small intestine, called the duodenum. After you have an endoscopy, you will stay at the hospital or clinic for 1 to 2 hours. This will allow the medicine to wear off. You will be able to go home after your doctor or nurse checks to make sure that you're not having any problems. You may have to stay overnight if you had treatment during the test. You may have a sore throat for a day or two after the test. This care sheet gives you a general idea about what to expect after the test. How can you care for yourself at home? Activity ?? Rest as much as you need to after you go home. ?? You should be able to go back to your usual activities the day after the test. Diet ?? Follow your doctor's directions for eating after the test. ?? Drink plenty of fluids (unless your doctor has told you not to). Medications ?? If you have a sore throat the day after the test, use an zayn-ald-qskllom spray to numb your throat. Follow-up care is a guy part of your treatment and safety. Be sure to make and go to all appointments, and call your doctor if you are having problems. It's also a good idea to know your test results and keep a list of the medicines you take. When should you call for help? Call 911 anytime you think you may need emergency care. For example, call if: ? You passed out (lost consciousness). ? You have trouble breathing. ? You pass maroon or bloody stools. Call your doctor now or seek immediate medical care if: ? You have pain that does not get better after your take pain medicine. ? You have new or worse belly pain. ? You have blood in your stools. ? You are sick to your stomach and cannot keep fluids down. ? You have a fever. ? You cannot pass stools or gas. Watch closely for changes in your health, and be sure to contact your doctor if: ? Your throat still hurts after a day or two. ? You do not get better as expected. Where can you learn more? Scan the [employer] or Visit our [employer] information library at https://www.DataArt/[employer]/ You can also view health information on [employer], your personal patient account. Log in or sign up today. Enter J454 in the search box to learn more about Upper GI Endoscopy: What to Expect at Home. Current as of: December 13, 2020?Content Version: 13.1 ?? [id number] [employer]. Care instructions adapted under license by [facility]. If you have questions about a medical condition or this instruction, always ask your healthcare professional. [employer] disclaims any warranty or liability for your use of this information. documented in this encounter Medications at Time of Discharge Medication Sig Dispensed Refills Start Date End Date acetaminophen (TYLENOL) 500 Take 1,000 mg by 0 mg Tablet mouth every 6 hours as needed for Pain. ibuprofen (ADVIL;MOTRIN) Take 800 mg by mouth 0 800 mg Tablet every 6 hours as needed for Pain. lisinopril-hydrochlorothiaz Take by mouth daily. 0 10/14/2018 gigi (PRINZIDE;ZESTORETIC) 10-12.5 mg Tablet simvastatin (ZOCOR) 40 mg 40mg, PO, Once daily 0 07/18/2005 tablet triamcinolone (KENALOG) 0.1 0 07/19/19 06 % cream multivitamin capsule 0 07/18/2005 Calcium 500 mg Tab 0 07/18/2005 documented as of this encounter H&P Notes Good Summers MD - 04/20/2021 8:27 AM EST Procedure: egd Indication: ablation/resection of pyloric adenoma History of Present Illness: Ashlie Metz is a 75 y.o. woman here for ablation/resection of pyloricadenoma. There is no problem list on file for this patient. Medications: Reviewed in EDH Allergies Allergen Reactions ??? Cephalosporins CIS - Hives ??? Penicillins CIS - Unknown Social History/Family History: Reviewed in EDH. No changes Exam: Patient Vitals for the past 24 hrs: Temp Pulse BP SpO2 O2 Device 04/20/21 0805 36.4 ??C (97.5 ??F) 75 124/58 98 % RA Axox3, nad Anicteric, MMM CTAB [...] Op Note - Good Summers MD - 04/20/2021 8:40 AM EST DH Operative Note Patient Name: Ashlie Metz : [id number] MR#: [id number] Case Date: 04/20/2021 Surgeon: Surgeon(s) and Role: * Good Summers MD - Primary Procedure(s): EGD WITH BIOPSY (WRVU 2.49) EGD, TRANSORAL; WITH ABLATION OF TUMOR(S), POLYP(S), OR OTHER LESION(S) (WRVU 4.26) Please see Provation report for details. documented in this encounter Plan of Treatment Upcoming Encounters Date Type Specialty Care Team Description 01/18/2022 Hospital Encounter Gastroenterology Good Summers MD [facility] [address] [place] [address] 01/18/2022 Surgery Gastroenterology Good Summers, EGD, U PPER GI MD ENDOSCOPY [facility] [address] Scheduled Procedures Name Priority Associated Diagnoses Date/Time EGD, UPPER GI ENDOSCOPY Adenomatous duodenal jose yp 01/18/2022 11:30 AM EDT documented as of this encounter Procedures Procedure Name Priority Date/Time Associated Diagnosis Comme nts SURGICAL PATHOLOGY Routine 04/20/2021 8:55 AM Res ults for this REPORT EST procedure are i n the results section. SPECIMEN TO Routine 04/20/2021 8:55 AM Results f or this PATHOLOGY EST procedure are i n the results section. EGD, TRANSORAL; 04/20/2021 8:32 AM EGD again in 9 WITH ABLATION OF EST months please TUMOR(S), POLYP(S), OR OTHER LESION(S) (WRVU 4.26) EGD WITH BIOPSY 04/20/2021 8:32 AM EGD again in 9 (WRVU 2.49) EST months please UPPER GI ENDOSCOPY Routine 04/20/2021 7:42 AM Res ults for this EST procedure are i n the results section. documented in this encounter Results Surgical Pathology Report (04/20/2021 8:55 AM EST) Component Value Ref Test Analysis Performed At [facility] Method Time Signature Surgical [id number] ? Location: ; [facility]; [facility] Report The signing pathologist has (i) examined the relevant preparation(s) for the MEMORIAL specimen(s) and (ii) rendered or confirmed the diagnosis(es) . HOSPITAL LABORATORY . ?Surgic al Pathology DIAGNOSIS A - Normal duodenal bulb bx, biopsy: - ??Fragments of tubular adenoma. Electronically signed by: ?Joseph RODNEY PhD, Trang Verified: ??04/26/2021 16:22 ??Pathologist Performed at: ??-[facility] Dept. of Pathology, [place], [place] SPECIMEN(S) SUBMITTED A - Normal duodenal bulb bx, biopsy (1) CLINICAL INFORMATION Status post ablation/resection of duodenal adenoma SPECIMEN PROCESSING A - Labeled/Fixative: Normal duodenal bulb BX, formalin. Quantity/Size: Five, 0.1-0.3 cm. Tissue Description: Soft, delgado-pink tissues. Sections/Processing: Submitted en toto ??in 1 cassette labeled A1. ??florentino Specimen (Source) Anatomical Collection Method Collection Time Re ceived Time Location / / Volume Laterality 04/20/2021 8:55 AM EST Good Summers MD PATHOLOGY/CYTOLOGY ORDERABLE S Performing Organization Address City/[facility]/[place] [address] Specimen to Pathology (04/20/2021 8:55 AM EST) Specimen Anatomical Collection Method Collection Time Receive d Time (Source) Location / / Volume Laterality AP Specimen 04/20/2021 8:55 AM 8:55 EST AM EST Narrative [facility] - 04/20/2021 8:55 AM EST Specimen requisition ordered. ??Separate Pathology report to follow Good Summers MD PATHOLOGY/CYTOLOGY ORDERABLE S Performing Organization Address City/State/[place] [address] UPPER GI ENDOSCOPY (04/20/2021 7:42 AM EST) Component Value Ref Test Analysis Performed At [facility] gist Range Method Time Signature UPPER GI [facility] ENDOSCOPY Endoscopy Procedure Date: 04/20/2021 7:42 AM ? Patient Name: Ashlie Metz ? Date of : 1945 ? Age: 75 ? Order #: [id number] ? Instrument Name: [id number] ? Procedure: ? Upper GI endoscopy Indications: ? 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 duodenal tumor of uncertain b ehavior Providers: ? Good Summers, Alyssa de león, ? RN, Olga Lidia Cueva, Angelica warner Referring : ?Mary Lou Adjovu Medicines: ? Propofol per [...] oropharyn geal ? airway and neck mobility. Res piratory ? Examination: clear to auscult ation. ? CV Examination: normal. Proph ylactic ? Antibiotics: The patient does not ? [...] ? The examined esophagus was normal. ? Patchy mildly congested mucosa was found in the ? gastric antrum. ? There was no definite residual polyp tissue in the ? duodenum. The mucosa at 6 o'clock position in the ? proximal bulb was a slightly polypoid; this was ? biopsied and then ablated with APC. ? Moderate Sedation: ? Not applicable - See Anesthesia documentation Impression: ?- Normal esophagus. ? - Mild congestive gastropathy . ? - No definitie recurrent/resi dual ? duodenal polyp; mucosa at 6 o 'clock ? position within the proximal duodenum ? (just beyound the pyloric rim ) was ? biopsied and ablated with APC Recommendation: ?- Discharge patient to home. ? - Resume previous diet. ? - Await pathology results. ? - PPI daily for 2 weeks, avoi NSAIDs ? - Repeat upper endoscopy in 1 year ? for retreatment. ? Procedure Code(s): ?? --- Professional --- ? 02928, Esophagogastroduodenos copy, ? flexible, transoral; with abl ation of ? tumor(s), polyp(s), or other ? lesion(s) (includes pre- and ? post-dilation and guide wire passage, ? when performed) ? 53729, 59, ? Esophagogastroduodenoscopy, f lexible, ? transoral; with biopsy, singl e or ? multiple Diagnosis Code(s): ?? --- Professional --- ? 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 K31.89, Other diseases of sto mach and ? duodenum CPT copyright 2019 [employer]. All rights reserved. The codes documented in this report are preliminary and upon computer language coder review may be revised to meet current compliance requirements. Attending Participation: ? I personally performed the entire procedure. ? Good Summers, 04/20/2021 8:59:04 AM Number of Addenda: 0 Note Initiated On: 04/20/2021 7:42 AM Specimen (Source) Anatomical Collection Method Collection Time Re ceived Time Location / / Volume Laterality 04/20/2021 7:42 AM EST Mary Lou Adjovu RN PHYSICIAN OFFICE GENERAL SURGICAL ORDERABLES Performing Organization Address City/State/ZIP Code Phon e Number PROVATION documented in this encounter Visit Diagnoses Not on filedocumented in this encounter Administered Medications Inactive Administered Medications - up to 3 most recent administrations Medication Order MAR Action Action Date Dose Rate Site lactated ringers infusion Rate/Dose Change 04/20/2021 8:51 AM EST 200 mL/hr 100 mL/hr, Intravenous, CONTINUOUS, Starting on Fri04/20/21 at 0830, Until Fri04/20/21 at 0921, Endoscopy (Day of Procedure) New Bag 04/20/2021 8:31 AM EST 100 mL/hr New Bag 04/20/2021 8:10 AM EST 100 mL/hr 100 mL/hr documented in this encounter Active and Recently Administered Medications Times are shown in EST. Continuous Medication Order 04/18/2021 04/19/2021 04/20/2021 lactated ringers infusion (CANCELED) 0810 (New Bag - Provider: Aida Magana RN)0831 (New Bag - Provider: Good Hyde CRNA)0851 (Rate/Dose Change - Provider: Good Hyde CRNA) 100 mL/hr, Intravenous, CONTINUOUS, Star ting on Fri04/20/21 at 0830, Until Fri04/20/21 at 0921, Endoscopy (Day of Procedure) documented in this encounter Care Teams Checkering Machine Operator Relationship Specialty Start Date End Date Mary Lou Palacios APRN PCP - General Family Medicine 01/20/[address] [place] [address] [address] [place] [address] documented as of this encounter
--- OUTSIDE RECORDS SUMMARY | 2021-10-23 00:15 | XMS_ITS | Encounter Summary ---
:1945 Author Organization [facility] [place] [address] Care Team Providers Name Role Phone Mary Lou Palacios APRN Primary Care Provider Encounter Details Date Type Department Care Team Description 05/03/2020 Telephone Gastroenterology at [facility] [place] [address] Social History Tobacco Use Types Packs/Day [...] this encounter Miscellaneous Notes Telephone Encounter - Jenn Linn - 05/03/2020 4:39 PM EST Ashlie Metz [id number] Diagnosis/Indication: 4 - 6 ?months for surveillance 1. Have you ever had a/an Upper Endoscopy before? Yes: Date 11/12/19 If yes, did you have any problems with the procedure? No What type of sedation was used: General Anesthesia 2. Do you take any Blood Thinners? No 3. Do you have a Pacemaker or Defibrillator device? No 4. Are you a diabetic? No 5. Do you have any Allergies to Eggs, Latex or Medications? Yes: EDH 6. Do you take any Oral Iron Supplements (Including multi-vitamins)? Yes (Multivitamin) 7. Do you have a history of [...] to patient: You must have a responsible alliance party who will drive you to your procedure, stay on campus for the entire duration of your procedure, and drive you home from your procedure? *Please Verify the height and weight, and adjust if height and/or weight have changed* Estimated body mass index is 33.63 kg/m?? as calculated from the following: Height as of 11/12/19: 142.2 cm (4' 8). Weight as of 11/12/19: 68 kg (150 lb). *Delete if not needed* Height: 4'8 Weight: 147 BMI: 33 Age:74 y.o. documented in this encounter Plan of Treatment Upcoming Encounters Date Type Specialty Care Team Description 01/18/2022 Hospital Encounter Gastroenterology Good Summers MD [facility] [address] [address] 01/18/2022 Surgery Gastroenterology Good Summers, EGD, U PPER GI ENDOSCOPY [facility] [address] Scheduled Procedures Name Priority Associated Diagnoses Date/Time EGD, UPPER GI ENDOSCOPY Adenomatous duodenal jose yp 01/18/2022 11:30 AM EDT documented as of this encounter Visit Diagnoses Not on filedocumented in this encounter Care Teams Motor Assembler Relationship Specialty Start Date End Date Mary Lou Palacios APRN PCP - General Family Medicine 01/20/[address] [place] [address] documented as of this encounter
--- OUTSIDE RECORDS SUMMARY | 2021-10-23 00:15 | XMS_ITS | Encounter Summary ---
:1945 Author Organization [facility] [place] [address] Care Team Providers Name Role Phone Mary Lou Palacios APRN Primary Care Provider Encounter Details Date Type Department Care Team Description 09/05/2021 Telephone Gastroenterology at [facility] [place] [address] Social History Tobacco Use Types Packs/Day [...] this encounter Miscellaneous Notes Telephone Encounter - Kourtney Rodriguez - 09/05/2021 4:45 PM EDT Ashlie Metz [id number] Diagnosis/Indication: repeat egd for ablation of duodenal polyp in 6-9 months 1. Have you ever had a/an Upper Endoscopy before? Yes: Date 04/20/3032 If yes, did you have any problems with the procedure? No What type of sedation was used: General Anesthesia 2. Do you take any blood thinners or have you been diagnosed with a bleeding disorder that increasesyour risk of bleeding with procedures? No 3. Do you have a Pacemaker or Defibrillator device? No 4. Are you a diabetic? No 5. Do you have any Allergies to Eggs, Latex or Medications? Yes: E-DH 6. Do you take any Oral Iron Supplements (Including multi-vitamins)? Yes (Multivitamin) 7. Do you have a history of three or more abdominal surgeries? No 8. Have you had a problem with sedation or anesthesia? No 9. Do you use a c-pap machine or oxygen tank? Neither 10. Do you take prescription narcotic pain medications, including suboxone or methodone? No 11. Do you have a preference regarding the gender of your provider? Yes: Male Kristopher 12. Is there any other information you would like to us to note for the provider and nursing team who will perform your case? Yes: Last time there was a lot of gas last time 13. Say to patient: You must have a responsible green party who will drive you to your procedure, stay on campus for the entire duration of your procedure, and drive you home from your procedure? *Please Verify the height and weight, and adjust if height and/or weight have changed* Estimated body mass index is 32.61 kg/m?? as calculated from the following: Height as of 04/20/21: 143 cm (4' 8.3). Weight as of 04/20/21: 66.7 kg (147 lb). *Delete if not needed* Height: 4'8 Weight: 143 BMI: 32.1 Age:75 y.o. documented in this encounter Plan of Treatment Upcoming Encounters Date Type Specialty Care Team Description 01/18/2022 Hospital Encounter Gastroenterology Good Summers MD [facility] [address] 01/18/2022 Surgery Gastroenterology Good Summers, EGD, U PPER GI ENDOSCOPY [facility] [address] Scheduled Procedures Name Priority Associated Diagnoses Date/Time EGD, UPPER GI ENDOSCOPY Adenomatous duodenal jose yp 01/18/2022 11:30 AM EDT documented as of this encounter Visit Diagnoses Not on filedocumented in this encounter Care Teams Deployment Specialist Relationship Specialty Start Date End Date Adjovu, Mary Lou, MARINE DESIGNER PCP - General Family Medicine 01/20/19 [address] [place] [address] documented as of this encounter
--- OUTSIDE RECORDS SUMMARY | 2021-10-23 00:15 | XMS_ITS | Encounter Summary ---
:1945 Author Organization [facility] [place] [address] Care Team Providers Name Role Phone Mary Lou Palacios APRN Primary Care Provider Encounter Details Date Type Department Care Team Description 08/04/2020 Telephone Gastroenterology at [facility] Jennifer Josue [facility] [address] [place] [phone] Social History Tobacco Use Types Packs/Day [...] this encounter Miscellaneous Notes Telephone Encounter - Jennifer Josue - 08/04/2020 5:07 PM EDT Patient called in resonse to letter she received about scheduling her next procedure however, she was just in for a procedure with Dr. Summers on 07/14 and was under the impression she was not sure for 9 more months documented in this encounter Plan of Treatment Upcoming Encounters Date Type Specialty Care Team Description 01/18/2022 Hospital Encounter Gastroenterology Good Summers MD [facility] [address] 01/18/2022 Surgery Gastroenterology Good Summers, EGD, U PPER GI MD ENDOSCOPY [facility] [address] Scheduled Procedures Name Priority Associated Diagnoses Date/Time EGD, UPPER GI ENDOSCOPY Adenomatous duodenal jose yp 01/18/2022 11:30 AM EDT documented as of this encounter Visit Diagnoses Not on filedocumented in this encounter Care Teams Bias Binding Cutter Relationship Specialty Start Date End Date Mary Lou Palacios APRN PCP - General Family Medicine 01/20/[address] [place] [address] documented as of this encounter
--- OUTSIDE RECORDS SUMMARY | 2021-10-23 00:15 | XMS_ITS | Encounter Summary ---
:1945 Author Organization [facility] [place] [address] Care Team Providers Name Role Phone Mary [...] Expiration Date Visits Requ ested Visits Authorized [id number] 1 1 Encounter Details Date Type Department Care Team Description 11/12/2019 Surgery Gastroenterology at [facility] Good Summers, EGD, W DIRECTED [facility] [place] [address] [facility] INJECTION(S) [phone] [place], [place] [address] Social History Tobacco Use Types [...] Sign Reading Time Taken Comments Blood Pressure 125/70 11/12/2019 9:15 AM EDT Pulse 60 11/12/2019 7:49 AM EDT Temperature 36.7 ??C (98 ??F) 11/12/2019 7:47 AM EDT Respiratory Rate 18 11/12/2019 9:15 AM EDT Oxygen Saturation 97% 11/12/2019 9:15 AM EDT Inhaled Oxygen Concentration - - Weight 68 kg (150 lb) 11/12/2019 7:47 AM EDT Height 142.2 cm (4' 8) 11/12/2019 7:47 AM EDT Body Mass Index 33.63 11/12/2019 7:47 AM EDT documented in this encounter Discharge Instructions Discharge InstructionsDalia Flores RN - 11/12/2019 9:22 AM EDT Upper GI Endoscopy: What to [...] the day after the procedure, use an afxf-zde-epwhrri spray to numb yourthroat. Sucking on throat [...] occurs, please contact your Doctor. Please call [phone] before 8pm Mon-Fri with problems, questions or concerns. If you call after 8pm or on weekends, call the Hospital at [phone] and ask to speak to the Wire Basket Maker packaging sales consultant and the bow machine operator will contact that person for you. When should you call for help? Call 121 anytime you think you may need emergency [...] any problems. Where can you learn more? [facility] View your After Visit Summary and more online at [email or web address] If you would like to provide feedback [...] cost to you. Content Version: 12.2 ?? [id number] [employer]. Care instructions adapted under license by [facility]. If you have questions about a medical condition or this instruction, always ask your healthcare professional. [employer] disclaims any warranty or liability for your [...] Calcium 500 mg Tab 0 07/18/2005 omeprazole (PRILOSEC) 20 Take 1 capsule by 60 capsule 11 01/0502/21/2020 mg Capsule, Delayed mouth 2 times Release(E.C.) daily. documented as of this encounter H&P Notes Claude Marcial MD - 11/12/2019 8:02 AM EDT Gastroenterology and Hepatology Pre-Procedure History and Physical Exam Procedure: EGD: Indication: surveillance pyloric gland adenoma? History of Present Illness: Ashlie Metz is a 73 y.o. 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 There is no problem list on file for this patient. EXAM: HEENT: Airway examined, oropharynx clear Mallampati Score: II (soft palate, uvula, fauces visible) LUNGS: Clear to auscultation HEART: Regular rate and rhythm, normal S1, S2 ABDOMEN: Normal bowel sounds, soft, non tender, non distended A/P Proceed with the planned endoscopic procedure. ASA 3 - Patient with moderate systemic disease with functional limitations Sedation Plan: anesthesia Risks and benefits of the procedure explained to the patient. Consent signed. Please see separate consult note for further details. documented in this encounter Miscellaneous Notes Op Note - Good Summers MD - 11/12/2019 9:31 AM EDT [facility] Operative Note Patient Name: Ashlie Metz : [id number] MR#: [id number] Case Date: 11/12/2019 Surgeon: Surgeon(s) and Role: * Good Summers MD - Primary Preoperative diagnosis: Please schedule for EGD 45 min in 6 months from 04/21/19 Duodenal mucosal mass/polyp Postoperative diagnosis: * No post-op diagnosis entered * Procedure(s): EGD, W DIRECTED SUBMUCOSAL INJECTION(S) EGD, W REMOVAL TUMOR/POLYPS/LESIONS BY SNARE TECHNIQUE EGD, TRANSORAL; WITH ABLATION OF TUMOR(S), POLYP(S), OR OTHER LESION(S) (WRVU 4.26) Please see Provation report for details. documented in this encounter Plan of Treatment Upcoming Encounters Date Type Specialty Care Team Description 01/18/2022 Hospital Encounter Gastroenterology Good Summers MD [facility] [place] [address] 01/18/2022 Surgery Gastroenterology Good Summers, EGD, U PPER GI MD ENDOSCOPY [facility] [place] [phone] (work) Scheduled Procedures Name Priority Associated Diagnoses Date/Time EGD, UPPER GI ENDOSCOPY Adenomatous duodenal jose yp 01/18/2022 11:30 AM EDT documented as of this encounter Procedures Procedure Name Priority Date/Time Associated Comments Diagnosis SURGICAL PATHOLOGY Routine 11/12/2019 9:13 AM Res ults for this REPORT EDT procedure are i n the results section. SPECIMEN TO Routine 11/12/2019 9:13 AM Results f or this PATHOLOGY EDT procedure are i n the results section. UPPER GI ENDOSCOPY Routine 11/12/2019 8:33 AM Res ults for this EDT procedure are i n the results section. EGD, TRANSORAL; WITH 11/12/2019 8:28 AM Please schedul e for ABLATION OF EDT EGD 45 min in 6 TUMOR(S), POLYP(S), months from 04/21/19 OR OTHER LESION(S) Duodenal mucosal (WRVU 4.26) mass/polyp EGD, W REMOVAL 11/12/2019 8:28 AM Please schedule for TUMOR/POLYPS/LESIONS EDT EGD 45 min in 6 BY SNARE TECHNIQUE months from Duodenal mucosal mass/polyp EGD, W DIRECTED 11/12/2019 8:28 AM Please schedule for SUBMUCOSAL EDT EGD 45 min in 6 INJECTION(S) months from 04/21 Duodenal mucosal mass/polyp documented in this encounter Results Surgical Pathology Report (11/12/2019 9:13 AM EDT) Component Value Ref Test Analysis Performed At [facility] Range Method Time Signature Surgical [id number] ? Location: ; [facility]; [facility] Report The signing pathologist has (i) examined the relevant preparation(s) for the [facility]ORIAL specimen(s) and (ii) rendered or confirmed the diagnosis(es) . HOSPITAL LABORATORY . ?Surgic al Pathology DIAGNOSIS Pyloric lesion, resection: Residual pyloric gland adenoma (fragments). Electronically signed by: ??Janki Stoddard MD Verified: ??2019 ?Pathologist Performed at: ??-[facility] Dept. of Pathology, [place], [place] ADDITIONAL STUDIES Immunohistochemistry Studies: Formalin-fixed, paraffin-emb edded tissue sections are studied using the polymer technique with appropriate positive and negative controls. ?These IHC studies provide the pathologist wit h adjunctive diagnostic information. Antibody specificity has been verified by testin g antibodies on a series of in-house tissues with known immunohistochemical perform ance characteristics. The clinical interpretation of any antibody positive stain ing or its absence is evaluated within the context of clinical presentation, morp hology, histopathological criteria and other diagnostic tests. Block ? Antibody ? Result (Positive/Negative) A2,3 ? MUC5AC ?Positive ? MUC6 ?Positive ? p53 ? Negative Whole slide scan: A1-3 SPECIMEN(S) SUBMITTED A - pyloric lesion, resection (1) CLINICAL INFORMATION Status post partial resection of pyloric gland adenoma SPECIMEN PROCESSING A - Labeled/Fixative: Pyloric lesion, formalin. Quantity/Size: ??Four, 0.1-0.9 cm. Tissue Description: Soft pink-delgado polypoid tissue fragments. Sections/Processing: Entirely submitted in 3 cassettes as follows: ?A1: ??Intact fragments ?A2: ??Single fragment, inked and intact ?A3: ??Single fragment, inked and bisected ??florentino Specimen (Source) Anatomical Collection Method Collection Time Re ceived Time Location / / Volume Laterality 11/12/2019 9:13 AM EDT Good Summers MD PATHOLOGY/CYTOLOGY ORDERABLE S Performing Organization Address City/State/[place] [address] Specimen to Pathology (11/12/2019 9:13 AM EDT) Specimen Anatomical Collection Method Collection Time Receive d Time (Source) Location / / Volume Laterality AP Specimen 11/12/2019 9:13 AM 0 9:13 EDT AM EDT Narrative [facility] - 11/12/2019 9:13 AM EDT Specimen requisition ordered. ??Separate Pathology report to follow Good Summers MD PATHOLOGY/CYTOLOGY ORDERABLE S Performing Organization Address [facility] [place] [address] UPPER GI ENDOSCOPY (11/12/2019 8:33 AM EDT) Component Value Ref Test Analysis Performed At [facility] Range Method Time Signature UPPER GI [facility]ATION ENDOSCOPY Endoscopy Procedure Date: 11/12/2019 8:33 AM ? Patient Name: Ashlie Metz ? N: [id number] ? Date of : 1945 ? Age: 73 ? Order #: [id number] ? Instrument Name: [id number] ? Procedure: ? Upper GI endoscopy Indications: ? For 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 Good Summers, Alyssa de león, ? RN, Jesse Prater Referring : ?Mary Lou Adjovu Medicines: ? [...] antiplatelet agents. ASA Grad e ? Assessment: III - A patient w ith ? severe systemic disease. Afte r ? reviewing the risks and benef its, the ? patient was deemed in satisfa ctory ? condition to undergo the proc edure. ? The anesthesia plan was to us e ? monitored anesthesia care (MA C). ? Immediately prior to administ ration ? of medications, the patient w as ? re-assessed for adequacy to r eceive ? sedatives. The heart rate, ? respiratory rate, oxygen satu rations, [...] procedu re well. ? Findings: ? The Z-line was irregular. ? Evidence of a fundoplication was found in the gastric ? fundus. ? Polypoid tissue in the duodenal bulb from 8 o'clock ? to 5 o'clock position approximately 2 cm in size. ? Preparations were made for mucosal resection. Orise ? gel was injected to raise the lesion. Cap and snare ? mucosal resection was performed. Parts of the lesions ? were non lifting and could not be resected. ? Coagulation for tissue destruction using argon beam ? at 0.8 liters/minute and 20 ledesma was successful. ? Moderate Sedation: ? Not applicable - See Anesthesia documentation Impression: ?- Z-line irregular. ? - A fundoplication was found. ? - Polypoid tissue in the duod enal ? bulb, significantly smaller t jurado seen ? on previous exams. EMR and AP C ? performed Recommendation: ?- Discharge patient to home. ? - Clear liquid diet for 2 jaron rs. ? - Use a proton pump inhibitor PO BID. ? - Await pathology results. ? - No ibuprofen, naproxen, or other ? non-steroidal anti-inflammato ry drugs. ? - Repeat upper endoscopy in 4 - 6 ? months for surveillance pendi ng ? pathology ? Procedure Code(s): ?? --- Professional --- ? 86527, 59, ? Esophagogastroduodenoscopy, f lexible, ? transoral; with endoscopic mu cosal ? resection ? 82560, Esophagogastroduodenos copy, ? flexible, transoral; with abl ation of ? tumor(s), polyp(s), or other ? lesion(s) (includes pre- and ? post-dilation and guide wire passage, ? when performed) Diagnosis Code(s): ?? --- Professional --- ? 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 K31.7, Polyp of stomach and d uodenum ? K22.8, Other specified diseas es of ? esophagus CPT copyright 2019 [employer]. All rights reserved. The codes documented in this report are preliminary and upon invasive physician review may be revised to meet current compliance requirements. Attending Participation: ? I personally performed the entire procedure. ? Good Summers, 11/12/2019 9:28:27 AM Number of Addenda: 0 Note Initiated On: 11/12/2019 8:33 AM Specimen (Source) Anatomical Collection Method Collection Time Re ceived Time Location / / Volume Laterality 11/12/2019 8:33 AM EDT Mary Lou Palacios SLURRY CONTROL TENDER GENERAL SURGICAL ORDERABLES Performing Organization Address City/State/ZIP Code Phon e Number [employer]OVATION documented in this encounter Visit Diagnoses Not on filedocumented in this encounter Administered Medications Inactive Administered Medications - up to 3 most recent administrations Medication Order MAR Action Action Date Dose Rate Site lactated ringers infusion New Bag 11/12/2019 8:01 AM EDT 100 mL/hr 100 mL/hr 100 mL/hr, Intravenous, CONTINUOUS, Starting on Fri11/12/19 at 0800, Until Fri11/12/19 at 1016, Endoscopy (Day of Procedure) documented in this encounter Active and Recently Administered Medications Times are shown in EDT. Continuous Medication Order 11/10/2019 11/11/2019 11/12/2019 lactated ringers infusion (CANCELED) 0801 (New Bag - Provider: Claude Jones RN)0911 (Anesthesia Volume Adjustment - Provider: Raj Mercer CRNA) 100 mL/hr, at 100 mL/hr, Intravenous, CO NTINUOUS, Starting Fri11/12/19 at 0800, Until Fri11/12/19 at 1016, Endo (Day of Procedure) documented in this encounter Care Teams Skating Carhop Relationship Specialty Start Date End Date Mary Lou Palacios APRN PCP - General Family Medicine 01/20/[address] [place] [address] documented as of this encounter
--- OUTSIDE RECORDS SUMMARY | 2021-10-23 00:15 | XMS_ITS | Encounter Summary ---
:1945 Author Organization [facility] [place] [address] Care Team Providers Name Role Phone Mary Lou Palacios APRN Primary Care Provider Reason for Visit Auth/Cert Specialty Diagnoses / Procedures Referred By Contact Refer red To Contact Diagnoses Duodenal mass Per IB from Dr. Summers- Repeat EGD in 3 months from 01/20/19 Duodenal mucosal mass/polyp found on ??endoscopy Procedures PRO UPPER GI ENDOSCOPY, DIAGNOSTIC PRO ANESTH, UGI ENDOSCOPY NOS EGD, UPPER GI ENDOSCOPY Referral ID Status Reason Start Date Expiration Date Visits Requ ested Visits Authorized [id number] 1 1 Encounter Details Date Type Department Care Team Description 04/21/2019 Surgery Gastroenterology at [facility] Good Summers, EGD, W DIRECTED [facility] [place] [address] [facility] INJECTION(S) [phone] [place], [place] [address] Social History Tobacco Use Types [...] Sign Reading Time Taken Comments Blood Pressure 104/59 04/21/2019 8:40 AM EST Pulse 61 04/21/2019 7:12 AM EST Temperature 36.5 ??C (97.7 ??F) 04/21/2019 7:12 AM EST Respiratory Rate 16 04/21/2019 8:40 AM EST Oxygen Saturation 91% 04/21/2019 8:40 AM EST Inhaled Oxygen Concentration - - Weight 68 kg (150 lb) 04/21/2019 7:12 AM EST Height 142.2 cm (4' 8) 04/21/2019 7:12 AM EST Body Mass Index 33.63 04/21/2019 7:12 AM EST documented in this encounter Discharge Instructions AttachmentsThe following attachments cannot be sent through Care Everywhere.EGD (Upper Endoscopy): Post-op (Guatemalan)documented in this encounter Medications at Time of [...] encounter H&P Notes Good Summers MD - 04/21/2019 8:00 AM EST Procedure: EGD Indication: surveillance pyloric gland adenoma History of Present Illness: [...] History: Reviewed in EDH. No changes Exam: Most Recent Vitals: 04/21/19 0712 BP: 144/76 Pulse: 61 Resp: 16 Temp: 36.5 ??C (97.7 ??F) SpO2: 97% Axox3, nad Anicteric, MMM CTAB RRR, no [...] Op Note - Good Summers MD - 04/21/2019 8:46 AM EST [facility] Operative Note Patient Name: Ashlie Metz : [id number] MR#: [id number] Case Date: 04/21/2019 Surgeon: Surgeon(s) and Role: * Good Summers MD - Primary Preoperative diagnosis: Per IB from Dr. Summers- Repeat EGD in 3 months from 01/20/19 Duodenal mucosal mass/polyp found on ??endoscopy Postoperative diagnosis: * No post-op diagnosis entered * Procedure(s): EGD, W DIRECTED SUBMUCOSAL INJECTION(S) EGD, TRANSORAL; WITH ABLATION OF TUMOR(S), POLYP(S), [...] Procedure Name Priority Date/Time Associated Comments Diagnosis EGD, TRANSORAL; WITH 04/21/2019 8:03 AM Per IB from Dr Dominguez ABLATION OF EST Kristopher- Repeat EGD TUMOR(S), POLYP(S), in 3 months from OR OTHER LESION(S) 01/20/19 (WRVU 4.26) Duodenal mucosal mass/polyp found on ??endoscopy EGD, W DIRECTED 04/21/2019 8:03 AM Per IB from SUBMUCOSAL EST Kristopher- Repeat EGD INJECTION(S) in 3 months from 01/20/19 Duodenal mucosal mass/polyp found on ??endoscopy UPPER GI ENDOSCOPY Routine 04/21/2019 7:33 AM Res ults for this EST procedure are i n the results section. documented in this encounter Results UPPER GI ENDOSCOPY (04/21/2019 7:33 AM EST) Component Value Ref Test Analysis Performed At [facility] Range Method Time Signature UPPER GI [facility] [employer]ATION ENDOSCOPY Endoscopy Procedure Date: 04/21/2019 7:33 AM ? Patient Name: Ashlie Metz ? Date of : 1945 ? Age: 73 ? Order #: [id number] ? Instrument Name: [id number] ? Procedure: ? Upper GI endoscopy Indications: ? 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 duodenal tumor of uncertain b ehavior Providers: ? Claude Monsivais ? Orly Jones, ? Research Methodologist Referring MD: ?Mary Lou Adjovu Medicines: ? [...] the procedu re well. ? Findings: ? No gross lesions were noted in the entire esophagus. ? No gross lesions were noted in the entire examined ? stomach. ? There were two areas of residual/recurrent polyp. ? Approximately 10 mm flat lesion left lateral wall of ? duodenal bulb, and polyp tissue immediately distal to ? the pyloric channel at 5-6 O'clock. The lesions were ? ablated using Hybrid-APC technique with injection ? lift and obliteration by argon beam at 0.8 ? liters/minute and 40 ledesma was successful. ? Moderate Sedation: ? Not applicable - See Anesthesia documentation Impression: ?- Two medium sized recurrent/resid ual ? areas of polyp tissues; succe ssfully ? ablated by Hybrid-APC. Recommendation: ?- Discharge patient to home. ? - Clear liquid diet for 2 jaron rs. ? - Observe patient's clinical course. ? - Use a proton pump inhibitor PO BID ? for 2 weeks. ? - Repeat upper endoscopy in 6 months ? for surveillance. ? Procedure Code(s): ?? --- Professional --- ? 04191, Esophagogastroduodenos copy, ? flexible, transoral; with abl [...] of stomach and d uodenum CPT copyright 2017 [employer]. All rights reserved. The codes documented in this report are preliminary and upon income tax consultant review may be revised to meet current compliance requirements. Attending Participation: ? I personally performed the entire procedure. ? Good Summers, 04/21/2019 8:45:03 AM Number of Addenda: 0 Note Initiated On: 04/21/2019 7:33 AM Specimen (Source) Anatomical Collection Method Collection Time Re ceived Time Location / / Volume Laterality 04/21/2019 7:33 AM EST Mary Lou Palacios MARKING CLERK GENERAL SURGICAL ORDERABLES Performing Organization Address City/State/ZIP Code Phon e Number [employer] documented in this encounter Visit Diagnoses Not on filedocumented in this encounter Administered Medications Inactive Administered Medications - up to 3 most recent administrations Medication Order MAR Action Action Date Dose Rate Site lactated ringers infusion New Bag 04/21/2019 7:28 AM EST 50 mL/hr 50 mL/hr 50 mL/hr, Intravenous, CONTINUOUS, Starting on Fri04/21/19 at 0730, Until Fri04/21/19 at 0905, Endoscopy (Day of Procedure) documented in this encounter Active and Recently Administered Medications Times are shown in EST. Continuous Medication Order 04/19/2019 04/20/2019 04/21/2019 lactated ringers infusion (CANCELED) 0728 (New Bag - Provider: David Lombardo RN)0831 (Anesthesia Volume Adjustment - Provider: Raj Mercer CRNA) 50 mL/hr, at 50 mL/hr, Intravenous, CONT INUOUS, Starting Fri04/21/19 at 0730, Until Fri04/21/19 at 0905, Endo (Day of Procedure) documented in this encounter Care Teams Corn Cutter Relationship Specialty Start Date End Date Mary Lou Palacios APRN PCP - General Family Medicine 01/20/[address] [place] [address] documented as of this encounter
--- OUTSIDE RECORDS SUMMARY | 2021-10-23 00:15 | XMS_ITS | Encounter Summary ---
:1945 Author Organization [place] [place] [address] Care Team Providers Name Role Phone Mary Lou Palacios APRN Primary Care Provider Encounter Details Date Type Department Care Team Description 02/01/2019 Telephone Gastroenterology at [facility] Linda Mehta, [facility] [place] [address] Social History Tobacco Use Types Packs/Day [...] this encounter Miscellaneous Notes Telephone Encounter - Linda Mehta RN - 02/01/2019 12:31 PM EDT VM from patient. She has questions regarding results letter received. Call to patient. She would like a more thorough explanation regarding her the pyloric gland adenoma, specifically wants to know how serous this is. Advised I would ask Dr. Paul to call. She's aware that he tried calling on 01/27.Encouraged her to set up [facility] portal as well. documented in this encounter Plan of Treatment Upcoming Encounters Date Type Specialty Care Team Description 01/18/2022 Hospital Encounter Gastroenterology Good Summers MD [facility] [address] [place] [address] 01/18/2022 Surgery Gastroenterology Good Summers, EGD, U PPER GI ENDOSCOPY [facility] [address] [place] [address] Scheduled Procedures Name Priority Associated Diagnoses Date/Time EGD, UPPER GI ENDOSCOPY Adenomatous duodenal jsoe yp 01/18/2022 11:30 AM EDT documented as of this encounter Visit Diagnoses Not on filedocumented in this encounter Care Teams Process Control Manager Relationship Specialty Start Date End Date Mary Lou Palacios APRN PCP - General Family Medicine 01/20/19 [address] [place] [address] documented as of this encounter
--- OUTSIDE RECORDS SUMMARY | 2021-10-23 00:15 | XMS_ITS | Encounter Summary ---
:1945 Author Organization [facility] [place] [address] Care Team Providers Name Role Phone Mary Lou Palacios APRN Primary Care Provider Encounter Details Date Type Department Care Team Description 12/09/2019 Telephone Gastroenterology at [facility] Good Summers MD [facility] [address] [facility] [place] [address] [place] [address] [phone] (Wo rk) Social History Tobacco Use Types [...] Telephone Encounter - Good Summers MD - 12/09/2019 12:05 PM EDT Called to follow up No answer, left message and sent letter Repeat egd in 4 months documented in this encounter Plan of Treatment Upcoming Encounters Date Type Specialty Care Team Description 01/18/2022 Hospital Encounter Gastroenterology Good Summers MD [facility] [address] [place] [address] 01/18/2022 Surgery Gastroenterology Good Summers, EGD, U PPER GI MD ENDOSCOPY [facility] [address] [place], [place] [address] Scheduled Procedures Name Priority Associated Diagnoses Date/Time EGD, UPPER GI ENDOSCOPY Adenomatous duodenal jose yp 01/18/2022 11:30 AM EDT documented as of this encounter Visit Diagnoses Not on filedocumented in this encounter Care Teams Systems Mgr Relationship Specialty Start Date End Date Mary Lou Palacios APRN PCP - General Family Medicine 01/20/[address] [place] [address] documented as of this encounter
--- OUTSIDE RECORDS SUMMARY | 2021-10-23 00:15 | XMS_ITS | Encounter Summary ---
:1945 Author Organization [facility] [place] [address] Care Team Providers Name Role Phone Mary [...] Expiration Date Visits Requ ested Visits Authorized [id number] 1 1 Encounter Details Date Type Department Care Team Description 11/12/2019 Hospital Encounter Gastroenterology at [facility] Good Summers, [facility] [place] [address] [facility] [phone] [place] [address] Social History Tobacco Use Types Packs/Day [...] Sign Reading Time Taken Comments Blood Pressure 97/58 11/12/2019 9:40 AM EDT Pulse 60 11/12/2019 7:49 AM EDT Temperature 36.7 ??C (98 ??F) 11/12/2019 7:47 AM EDT Respiratory Rate 18 11/12/2019 9:50 AM EDT Oxygen Saturation 100% 11/12/2019 9:50 AM EDT Inhaled Oxygen Concentration - - [...] the day after the procedure, use an fwmd-umi-afmjcuh spray to numb yourthroat. Sucking on throat [...] occurs, please contact your Doctor. Please call [phone] before 8pm Mon-Fri with problems, questions or concerns. If you call after 8pm or on weekends, call the Hospital at [phone] and ask to speak to the Cigarette Making Machine Catcher education consultant and the felling machine operator will contact that person for you. When should you call for help? Call [phone] anytime you think you may need emergency [...] any problems. Where can you learn more? [facility]- View your After Visit Summary and more online at [email or web address] If you would like to [...] cost to you. Content Version: 12.2 ?? [id number] [employer]. Care instructions adapted under license by [facility]. If you have questions about a medical condition or this instruction, always ask your healthcare professional. [employer] disclaims any warranty or liability for your [...] Summers MD - 11/12/2019 9:31 AM EDT [facility] Operative Note Patient Name: Ashlie Metz : [id number] MR#: [id number] Case Date: 11/12/2019 Surgeon: Surgeon(s) and Role: [...] 01/18/2022 Hospital Encounter Gastroenterology Good Summers MD [facility] [address] [address] 01/18/2022 Surgery Gastroenterology Good Summers, EGD, U PPER GI ENDOSCOPY [facility] [address] Scheduled Procedures Name [...] Component Value Ref Test Analysis Performed At [facility] Range Method Time Signature Surgical [id number] ? Location: [address] [place] [address]; [facility] Report The signing pathologist has (i) examined the relevant preparation(s) for the [facility] specimen(s) and (ii) rendered or confirmed the diagnosis(es) . HOSPITAL LABORATORY . ?Surgic al Pathology DIAGNOSIS Pyloric lesion, resection: Residual pyloric gland adenoma (fragments). Electronically signed by: ??Janki Stoddard MD Verified: ??2019 ?Pathologist Performed at: ??-[facility] Dept. of Pathology, [place], [place] ADDITIONAL STUDIES Immunohistochemistry Studies: Formalin-fixed, paraffin-emb [...] Organization Address City/State/[place] [address] Specimen to Pathology (11/12/2019 9:13 AM EDT) Specimen Anatomical Collection Method Collection Time Receive d Time (Source) Location / / Volume Laterality AP Specimen 11/12/2019 9:13 AM 0 9:13 EDT AM EDT Narrative [facility] - 11/12/2019 9:13 AM EDT Specimen requisition ordered. ??Separate Pathology report to follow Good Summers MD PATHOLOGY/CYTOLOGY ORDERABLE S Performing Organization Address City/[facility]/[place] [address] UPPER GI ENDOSCOPY (11/12/2019 8:33 AM EDT) Component Value Ref Test Analysis Performed At [facility] Range Method Time Signature UPPER GI [facility] ENDOSCOPY Endoscopy Procedure Date: 11/12/2019 8:33 AM ? Patient Name: Ashlie Metz ? N: [id number] ? Date of : 1945 ? Age: 73 ? Order #: [id number] ? Instrument Name: [id number] ? Procedure: ? Upper GI endoscopy Indications: [...] Procedure Code(s): ?? --- Professional --- ? 40443, 59, ? Esophagogastroduodenoscopy, f lexible, ? transoral; with endoscopic mu cosal ? resection ? 88981, Esophagogastroduodenos copy, ? flexible, transoral; with abl [...] es of ? esophagus CPT copyright 2019 [employer]. All rights reserved. The codes documented in this report are preliminary and upon controls designer review may be revised to meet current compliance requirements. Attending Participation: ? I personally performed the entire procedure. ? Good Summers, 11/12/2019 9:28:27 AM Number of Addenda: 0 Note Initiated On: 11/12/2019 8:33 AM Specimen (Source) Anatomical Collection Method Collection Time Re ceived Time Location / / Volume Laterality 11/12/2019 8:33 AM EDT Mary Lou Palacios APRN GENERAL [...] Procedure) documented in this encounter Care Teams Adjunct Mathematics Instructor Relationship Specialty Start Date End Date Mary Lou Palacios APRN PCP - General Family Medicine 01/20/[address] [place] [address] documented as of this encounter
--- OUTSIDE RECORDS SUMMARY | 2021-10-23 00:15 | XMS_ITS | Encounter Summary ---
:1945 Author Organization [facility] [place] [address] Care Team Providers Name Role Phone Mary Lou Palacios APRN Primary Care Provider Reason for Visit Auth/Cert Specialty Diagnoses / Procedures Referred By Contact Refer red To Contact Diagnoses Per IB from Dr. Summers- EUS with planned resection of duodenal polyp under anes for 90 mins Procedures PRO ENDOSCOPIC US EXAM, ESOPH UPPER EUS- ENDOSCOPIC ULTRASOUND Referral ID Status Reason Start Date Expiration Date Visits Requ ested Visits Authorized [id number] 1 1 Encounter Details Date Type Department Care Team Description 01/20/2019 Surgery Gastroenterology at [facility] Good Summers, UPPER EUS- ENDOSCOPIC [facility] Godfrey [place] [address] [facility] [phone] [place], [place] [address] Social History Tobacco Use Types [...] Sign Reading Time Taken Comments Blood Pressure 164/86 01/20/2019 8:52 AM EDT Pulse 64 01/20/2019 8:52 AM EDT Temperature 36.5 ??C (97.7 ??F) 01/20/2019 8:52 AM EDT Respiratory Rate 20 01/20/2019 8:52 AM EDT Oxygen Saturation 98% 01/20/2019 8:52 AM EDT Inhaled Oxygen Concentration - - Weight 68 kg (150 lb) 01/20/2019 8:52 AM EDT Height 142.2 cm (4' 8) 01/20/2019 8:52 AM EDT Body Mass Index 33.63 01/20/2019 8:52 AM EDT documented in this encounter Discharge Instructions Discharge InstructionsClaude Jones RN - 01/20/2019 11:34 AM EDT Same Day Endo [phone] Otherwise contact [phone] and ask to speak to the salesperson burial plots teacher adventure education AttachmentsThe following attachments cannot be sent through Care Everywhere.EGD (Upper Endoscopy): Post-op (Romanian)documented in this encounter Medications at Time of [...] encounter H&P Notes Good Summers MD - 01/20/2019 9:14 AM EDT Procedure: EGD/EUS/ERCP EMR Indication: duodenal polyp History of Present Illness: Ashlie Metz is a 73 y.o. 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 I reviewed that if the tissue involved the ampulla, ERCP would be required. There is no problem list on file for this patient. Medications: Reviewed in EDH Allergies Allergen Reactions ??? Cephalosporins CIS - Hives ??? Penicillins CIS - Unknown Social History/Family History: Reviewed in EDH. No changes Exam: Most Recent Vitals: 01/20/19 0852 BP: 164/86 Pulse: 64 Resp: 20 Temp: 36.5 ??C (97.7 ??F) SpO2: 98% Axox3, nad Anicteric, MMM CTAB RRR, no m/r/g abd soft nt nd +bs Assessment and Plan: Proceed with EGD: ERCP: EUS: ASA Grade: ASA 3 - Patient with moderate systemic disease with functional limitations Mallampati score:II (soft palate, uvula, fauces visible) Sedation plan: GETA Risks and benefits of the procedure were discussed with the patient. Consent has been signed. Good Summers MD documented in this encounter Miscellaneous Notes Op Note - Good Summers MD - 01/20/2019 11:47 AM EDT [facility] Operative Note Patient Name: Ashlie Metz : [id number] MR#: [id number] Case Date: 01/20/2019 Surgeon: Surgeon(s) and Role: * Good Summers MD - Primary Preoperative diagnosis: Per IB from Dr. Summers- EUS with planned resection of duodenal polyp under anes for 90 mins Postoperative diagnosis: * No post-op diagnosis entered * Procedure(s): UPPER EUS- ENDOSCOPIC ULTRASOUND EGD, W REMOVAL TUMOR/POLYPS/LESIONS BY SNARE TECHNIQUE EGD, TRANSORAL; WITH ABLATION OF TUMOR(S), POLYP(S), OR OTHER LESION(S) (WRVU 4.26) ESOPHAGOSCOPY, DIAGNOSTIC, WITH DIRECTED SUBMUCOSAL INJECTION (WRVU 1.82) Please see Provation report for details. documented in this encounter Plan of Treatment Upcoming Encounters Date Type Specialty Care Team Description 01/18/2022 Hospital Encounter Gastroenterology Good Summers MD [facility] [address] [address] 01/18/2022 Surgery Gastroenterology Good Summers, EGD, U PPER GI ENDOSCOPY [facility] [address] Scheduled Procedures Name Priority Associated Diagnoses Date/Time EGD, UPPER GI ENDOSCOPY Adenomatous duodenal jose yp 01/18/2022 11:30 AM EDT documented as of this encounter Procedures Procedure Name Priority Date/Time Associated Comments Diagnosis SPECIMEN TO Routine 01/20/2019 11:24 AM Results for this PATHOLOGY EDT procedure are i n the results section. SURGICAL PATHOLOGY Routine 01/20/2019 11:09 AM Re sults for this REPORT EDT procedure are i n the results section. ESOPHAGOSCOPY, 01/20/2019 9:28 AM Per IB from DIAGNOSTIC, WITH EDT Kristopher- EUS with DIRECTED SUBMUCOSAL planned resection INJECTION (WRVU of duodenal polyp 1.82) under anes for 90 mins EGD, TRANSORAL; WITH 01/20/2019 9:28 AM Per IB from Dr Dominguez ABLATION OF EDT Kristopher- EUS with TUMOR(S), POLYP(S), planned resection OR OTHER LESION(S) of duodenal polyp (WRVU 4.26) under anes for 90 mins EGD, W REMOVAL 01/20/2019 9:28 AM Per IB from TUMOR/POLYPS/LESIONS EDT Kristopher- EUS with BY SNARE TECHNIQUE planned resection of duodenal polyp under anes for 90 mins UPPER EUS- 01/20/2019 9:28 AM Per IB from ENDOSCOPIC EDRalph Truong EUS with ULTRASOUND planned resection of duodenal polyp under anes for 90 mins UPPER EUS-ENDOSCOPIC Routine 01/20/2019 8:59 AM R esults for this ULTRASOUND EDT procedure are i n the results section. documented in this encounter Results Specimen to Pathology (01/20/2019 11:24 AM EDT) Specimen Anatomical Collection Method Collection Time Receive d Time (Source) Location / / Volume Laterality AP Specimen 01/20/2019 11:24 01/20/2019 AM EDT 11:24 AM EDT Narrative [facility] - 01/20/2019 11:24 AM EDT Specimen requisition ordered. ??Separate Pathology report to follow Good Summers MD PATHOLOGY/CYTOLOGY ORDERABLE S Performing Organization Address City/State/ZIP [place] [address] Surgical Pathology Report (01/20/2019 11:09 AM EDT) Component Value Ref Test Analysis Performed At [facility] gist Range Method Time Signature Surgical [id number] ? Location: 4T; EA08; A [facility] Report The signing pathologist has (i) examined the relevant preparation(s) for the [facility] specimen(s) and (ii) rendered or confirmed the diagnosis(es) . HOSPITAL LABORATORY . ?Surgic al Pathology DIAGNOSIS Duodenum, ??polypectomy: - Pyloric gland adenoma ?? (see Note). Note: Immunostaining shows t hat deeper crypts are positive for Muc6 and superficial epithelium is positive for Muc5AC; Muc2 is negative. This phenotype supports the diagnosis. ??There is no ev idence of high grade dysplasia. ?? Immunostain for CDX2 was evaluated for final diagnosis. Electronically signed by: ??Jensen Redman MD Verified: ??01/26/2019 ?Pathologist Performed at: ??-[facility] Dept. of Pathology, [place], [place] ADDITIONAL STUDIES Immunohistochemistry Studies: Formalin-fixed, paraffin-emb [...] and other diagnostic tests. Block ? Antibody ?Result (Positive /Negative) A6 ? MAC6 ? see note. ? MUC5AC ? MUC2 ? CDX2 CLINICAL INFORMATION Specimen Submitted: A - duodenal polyp Clinical History and Diagnosis: 73-year-old female with large duodenal polyp SPECIMEN PROCESSING A - Labeled/Fixative: Duodenal polyp, formalin. Quantity/Size: Multiple, ranging from 0.2-1.4 cm. Tissue Description: Soft, fragmented, friable, polypoid tiss ues. Sections/Processing: Submitted en toto ??in 6 cassettes labeled A1-A6. ??ejr Specimen (Source) Anatomical Collection Method Collection Time Re ceived Time Location / / Volume Laterality 01/20/2019 11:09 AM EDT Good Summers MD PATHOLOGY/CYTOLOGY ORDERABLE S Performing Organization Address City/State/[place] [address] UPPER EUS-ENDOSCOPIC ULTRASOUND (01/20/2019 8:59 AM EDT) Component Value Ref Test Analysis Performed At [facility] Range Method Time Signature UPPER [facility] ENDOSCOPIC Endoscopy ULTRASOUND _ Procedure Date: 01/20/2019 8:59 AM ? Patient Name: Ashlie Metz ? Date of : 1945 ? Age: 73 ? Order #: [id number] ? Instrument Name: [id number] ? Procedure: ? Upper EUS Indications: ? Duodenal mucosal mass/polyp found o n ? endoscopy Providers: ? Good Summers, Bhanu Leggett, R N, ? Kip Marshall Referring MD: ?Vesta Hardy Medicines: ? General Anesthesia Complications: ? No immediate complications. Procedure: [...] anesthesia plan was to us e ? general anesthesia. Immediate ly prior ? to administration of medicati ons, the ? patient was re-assessed for a [...] and ? adverse medication reactions. The ? Endosonoscope was introduced through ? the mouth, and advanced to th e second ? part of duodenum. The Endosco pe was ? introduced through the mouth, and ? advanced to the second part o f ? duodenum. The patient tolerat ed the ? procedure well. ? Findings: ? Endoscopic Finding : ? No gross lesions were noted in the entire esophagus. ? No gross lesions were noted in the entire examined ? stomach. ? A single 30 mm sessile polyp was found in the ? duodenal bulb. ? Endosonographic Finding : ? The polyp was examined endosonographically. The ? lesion appeared confined to the mucosa, without ? extension into deeper wall layers. The ? endosonographic borders were well-defined. ? Preparations were made for mucosal resection. ? Methylene blue was injected with partial lift of the ? lesion from the muscularis propria. Cap and snare ? mucosal resection was performed. Resection was ? incomplete, and the resected tissue was partially ? retrieved. The remaining part opf the lesion was ? ablateted using Hybrid APC at 40 W and was successful . ? Moderate Sedation: ? Not applicable - See Anesthesia documentation Impression: ?- Large duodenal bulb polyp. Mucos al ? resection and Hybrid APC perf ormed ? with near-complete / complete tissue ? destruction Recommendation: ?- Observe patient in GI recovery uni t ? for observation. ? - Clear liquid diet today. ? - Use a proton pump inhibitor PO BID. ? - No aspirin, ibuprofen, napr oxen, or ? other non-steroidal anti-infl ammatory ? drugs for 1 week. ? - Repeat examination in 3 mon ths for ? surveillance and retreatment. ? - Await pathology results. ? Procedure Code(s): ?? --- Professional --- ? 81729, 59, ? Esophagogastroduodenoscopy, f lexible, ? transoral; with endoscopic mu cosal ? resection ? 39082, Esophagogastroduodenos copy, ? flexible, transoral; with abl ation of ? tumor(s), polyp(s), or other ? lesion(s) (includes pre- and ? post-dilation and guide wire passage, ? when performed) ? 25950, Esophagogastroduodenos copy, ? flexible, transoral; with end oscopic ? ultrasound examination limite d to the ? esophagus, stomach or duodenu m, and ? adjacent structures Diagnosis Code(s): ?? --- Professional --- ? K31.89, Other diseases of sto mach and ? duodenum ? K31.7, Polyp of stomach and d uodenum CPT copyright 2017 [employer]. All rights reserved. The codes documented in this report are preliminary and upon director talent review may be revised to meet current compliance requirements. Attending Participation: ? I personally performed the entire procedure. ? Good Summers, 01/20/2019 11:29:20 AM Number of Addenda: 0 Note Initiated On: 01/20/2019 8:59 AM Specimen (Source) Anatomical Collection Method Collection Time Re ceived Time Location / / Volume Laterality 01/20/2019 8:59 AM EDT Vesta Hardy PSYCHIATRIC SOCIAL WORKER SUPERVISOR GENERAL SURGICAL ORDERABLES Performing Organization Address City/State/ZIP Code Phon e Number [employer] documented in this encounter Visit Diagnoses Not on filedocumented in this encounter Administered Medications Inactive Administered Medications - up to 3 most recent administrations Medication Order MAR Action Action Date Dose Rate Site lactated ringers infusion New Bag 01/20/2019 8:57 AM EDT 100 mL/hr 100 mL/hr 100 mL/hr, Intravenous, CONTINUOUS, Starting on Fri01/20/19 at 0915, Until Fri01/20/19 at 1237, Endoscopy (Day of Procedure) documented in this encounter Active and Recently Administered Medications Times are shown in EDT. Continuous Medication Order 01/18/2019 01/19/2019 01/20/2019 lactated ringers infusion (CANCELED) 0857 (New Bag - Provider: Geneva Kelly RN) 100 mL/hr, at 100 mL/hr, Intravenous, CO NTINUOUS, Starting Fri01/20/19 at 0915, Until Fri01/20/19 at 1237, Endo (Day of Procedure) documented in this encounter Care Teams Dean Of Graduate Studies Relationship Specialty Start Date End Date Mary Lou Palacios APRN PCP - General Family Medicine 01/20/19 [address] [place] [address] documented as of this encounter
--- OUTSIDE RECORDS SUMMARY | 2021-10-23 00:15 | XMS_ITS | Clinical Summary ---
:1945 Author Organization [facility] [place] [address] Care Team Providers Name Role Phone Mary Lou Palacios APRN Primary Care Provider Allergies Active Allergy Reactions Severity Noted Date Comments Cephalosporins CIS - Hives Penicillins CIS - Unknown Medications Medication Sig Dispensed Refills Start Date End Date Status simvastatin (ZOCOR) 40 40mg, PO, Once 0 07/18/2005 Active mg tablet daily triamcinolone (KENALOG) 0 07/18/2005 Active 0.1 % cream multivitamin capsule 0 07/18/2005 Active Calcium 500 mg Tab 0 07/18/2005 Active lisinopril-hydrochloroth Take by mouth 0 10/14/2018 Active iazide daily. (PRINZIDE;ZESTORETIC) 10-12.5 mg Tablet acetaminophen (TYLENOL) Take 1,000 mg by 0 Active 500 mg Tablet mouth every 6 hours as needed for Pain. ibuprofen (ADVIL;MOTRIN) Take 800 mg by 0 Active 800 mg Tablet mouth every 6 hours as needed for Pain. Encounters Date Type Specialty Care Team Description 09/05/2021 Telephone Gastroenterology Kourtney Rodriguez from Last 3 Months Immunizations Name Administration Dates Next Due Pneumococcal Polyvalent 23 03/04/2003 Td, adult 07/19/2002 Family History Medical History Relation Comments Colorectal Cancer Mother Relation Status Comments Mother Social History Tobacco Use Types Packs/Day Years [...] Assigned at Date Recorded Not on file Last Filed Vital Signs Vital Sign Reading Time Taken Comments Blood Pressure 109/56 04/20/2021 9:20 AM EST Pulse 75 04/20/2021 8:05 AM EST Temperature 36.4 ??C (97.5 ??F) 04/20/2021 8:05 AM EST Respiratory Rate 16 07/14/2020 12:00 PM EDT Oxygen Saturation 94% 04/20/2021 9:20 AM EST Inhaled Oxygen Concentration - - Weight 66.7 kg (147 lb) 04/20/2021 8:05 AM EST Height 143 cm (4' 8.3) 04/20/2021 8:05 AM EST Body Mass Index 32.61 04/20/2021 8:05 AM EST Plan of Treatment Upcoming Encounters Date Type Specialty Care Team Description 01/18/2022 Hospital Encounter Gastroenterology Good Summers MD [facility] [address] 01/18/2022 Surgery Gastroenterology Good Summers, EGD, U PPER GI ENDOSCOPY [facility] [address] Scheduled Procedures Name Priority Associated Diagnoses Date/Time EGD, UPPER GI ENDOSCOPY Adenomatous duodenal jose yp 01/18/2022 11:30 AM EDT Health Maintenance Due Date Last Done Comments Covid-19 Vaccine (#1) 11[birth year]19/1950 Hepatitis C Screening 1964 Tdap adult 1965 Breast Cancer Share Decision Needed 1986 Colonoscopy 11/19/1991 Breast Cancer screening 1996 Zoster vaccine (1 of 2) 1996 Advance Directive 2001 Bone Density Scan 11/19/2011 Pneumoccocal Vaccine: 65+ (1 - PCV) 11/19/2011 03/04/2003 Tetanus vaccine 07/19/2012 07/19/2002 Influenza (Flu) vaccine (1 of 1 - Influenza standard 12/06/2021 series) Insurance Payer Benefit Plan / Subscriber ID Effective Dates Phone Addre ss Type Group AARP MANAGED [facility] [facility] [id number] 2018-Arlin [phone] [address] [address] MEDICARE MANAGED t [address] [place] [address] Advance Directives Latest Code Status on File Code Status Date Activated Date Inactivated Comments Attempt Cardiopulmonary Resuscitation - 11/12/2019 8:27 AM 0 12:24 PM Inpatient Code Status decision made by: Patient Care Teams Branding Machine Tender Relationship Specialty Start Date End Date Mary Lou Palacios APRN PCP - General Family Medicine 01/20/[address] [place], [place] [id number]
--- OUTSIDE RECORDS SUMMARY | 2021-10-23 00:15 | XMS_ITS | Encounter Summary ---
:1945 Author Organization [facility] [place] [address] Care Team Providers Name Role Phone Mary [...] Expiration Date Visits Requ ested Visits Authorized [id number] 1 1 Encounter Details Date Type Department Care Team Description 01/20/2019 Anesthesia Event Gastroenterology at [facility] Kameron Garcia, [facility] [place] [address] [facility] [phone] DR ANESTHESIOLOGY [place], [place] [address] Anesthesia Record Procedure Summary Procedure Name Responsible Anesthesia Start Anesthesia Stop Anesthesiologist Time Time UPPER EUS- Kameron Garcia MD 01/20/19 0929 01/20/19 1 128 ENDOSCOPIC ULTRASOUND (N/A Trunk) Events Date Time Event Comment 01/20/2019 0925 0929 AN Verify 0929 Start 0929 An Start Data 0942 An Induction 0948 An Intubation 0949 Anesthesia Ready 0954 Break/Relief In Kameron Garcia MD PhD 1011 Break/Relief Out 1118 Procedure Stop 1125 Extubation/LMA Out Pt with regul ar respirations, Vt>500, follows commands. 1128 an stop data 1128 Recovery or ICU Handoff Patient care was transferred to the destination unit staff after review of the patient's medica l history, current anesthetic/surgi giuliana status and plan, according to the Provider Handoff Checklist. 1128 Stop Name Total Propofol 150 mg Propofol INF 450.5 mg Succinylcholine 90 mg Lactated Ringers 500 mL Agents Name O2 Air N2O Sevoflurane (et) Blood No blood administrations on file. Lines, Drains, and Airways Type Details Placement Removal PIV 01/20/19; 0857; basilic vein 01/20/19 0857 by 1236 by Robert, (medial side of arm), right; Geneva Kelly RN Christopher O, RN [id number] catheter system; 20 gauge; kelsy dean rn; distraction, intradermal injection, tolerated well, appears comfortable; 0; 01/20/19; 1236 ETT Mask Ventilation: (mask 01/20/19 0952 by Nde, 01/20/19 1125 by Ned, ventilation by lauryn Barajas I, JOSEPHINE sheffield I, ACADEMIC INTERN student, two handed.); ETT Type: Cuffed, Oral; ETT Size: 7 mm; Mac Blade: (Dblade); Indirect:Video; Notes: Asleep, Pre-O2, Cricoid Pressure, Stylette; Attempts: 2 (first attempt by medical student.); Laryngoscopy Grade: 3; ETT Placement Verified By: Auscultation, Capnometry, Visual; Secured at Teeth: 20 cm; Inserted by: Radha documented in this encounter Social History Tobacco [...] as of this encounter OR Notes Anesthesia Postprocedure Evaluation - Kameron Garcia MD - 01/20/2019 4:47 PM EDT Department of Anesthesiology Post-procedure Note Patient: Ashlie Metz Procedure Summary Date: 01/20/19 Room / Location: [facility] ENDO 3 / [facility] ENDOSCOPY Anesthesia Start: 928 Anesthesia Stop: 1127 Procedures: UPPER EUS- ENDOSCOPIC ULTRASOUND (N/A Trunk) EGD, W REMOVAL TUMOR/POLYPS/LESIONS BY SNARE TECHNIQUE EGD, TRANSORAL; WITH ABLATION OF TUMOR(S), POLYP(S), OR OTHER LESION(S) (WRVU 4.26) (N/A Esophagus) ESOPHAGOSCOPY, DIAGNOSTIC, WITH DIRECTED SUBMUCOSAL INJECTION (WRVU 1.82) (N/A ) Diagnosis: (Per IBfrom Dr. Summers- EUS with planned resection of duodenal polyp under anes for 90 mins) Surgeon: Good Summers MD Responsible Provider: Kameron Garcia MD Anesthesia Type: MAC ASA Status: 2 All Anesthesia Providers: Anesthesiologist: Kameron Garcia MD ACADEMIC INTERN: Jenn Marino CRNA Vitals Value Taken Time BP 140/59 01/20/2019 12:30 PM Temp Pulse Resp 18 01/20/2019 12:30 PM SpO2 94 % 01/20/2019 12:32 PM Pain Level 0 01/20/2019 12:30 PM Vitals shown include unvalidated device data. Patient Location: PACU/[facility] Level of Consciousness: Awake and Alert Pain Management: Satisfactory Analgesia PONV: None Cardiovascular Status: At Baseline and Hemodynamically Stable Respiratory Status: At Baseline and Room Air Postoperative Fluid Status: Intravascular EUvolemia Possible Anesthetic Complications: NONE apparent at time of evaluation Final Primary Anesthesia Type: General (The anesthetic type performed was the same as planned.) Comments: Kameron Garcia MD Anesthesia Preprocedure Evaluation - Kameron Garcia MD - 01/19/2019 8:51 PM EDT Pre-Anesthesia Evaluation for: Ashlie Mtez a 73 y.o. female. Procedure(s): UPPER EUS- ENDOSCOPIC ULTRASOUND There are no active problems to display for this patient. Past Medical History: Diagnosis Date ??? Cervical cancer ??? Dyslipidemia ??? Hypertension Past Surgical History: Procedure Laterality Date ??? SECTION ??? ESOPHAGOGASTRIC FUNDOPLICATION ??? TUBAL LIGATION Social History Tobacco Use ??? Smoking status: Never Smoker ??? Smokeless tobacco: Never Used Substance Use Topics ??? Alcohol use: Yes Frequency: Monthly or less Social History Substance and Sexual Activity Drug Use Not on file Allergies Allergen Reactions ??? Cephalosporins CIS - Hives ??? Penicillins CIS - Unknown Medications: MAR and/or home medications have been reviewed. Physical Exam: There were no vitals filed for this visit. There is no height or weight on file to calculate BMI. Airway Assessment: Mallampati: III TM distance: >3 FB Neck ROM: full Cardiovascular Assessment: Rhythm: regular Rate: normal Pulmonary Assessment: breath sounds clear to auscultation Dental Assessment: - normal exam Misc Assessment: Patient is wearing No contact(s). IV access: Peripheral line Anesthesia Plan: ASA 2 MAC, with a(n) intravenous induction Ashlie Metz is a 73 y.o. 72 kg female presenting for EGD/EUS. Pt has a PMH of HTN, HLD, and polyp of duodenal bulb. Patient's documented history was NEGATIVE for seizures, CVA, cardiac disease, pulmonary disease, hepatic disease, renal disease, and coagulopathy. Anesthetic History: No prior anesthetic documentation available. PONV after most recent endoscopy Labs were reviewed. Type and Screen: No results found for: ABORH Allergies: -- Cephalosporins -- CIS - Hives -- Penicillins -- CIS - Unknown NPO Status: Appropriate Anesthetic Plan: MAC Standard ASA monitoring Adequate IV access Kameron Garcia MD PhD #[id number] Region - Other Informed Consent: Anesthetic plan and risks discussed with patient. Plan discussed with ACADEMIC INTERN. PAT Clinic Note documented in this encounter Plan of Treatment Upcoming Encounters Date Type Specialty Care Team Description 01/18/2022 Hospital Encounter Gastroenterology Good Summers MD [facility] [place] [address] 01/18/2022 Surgery Gastroenterology Good Summers, EGD, U PPER GI ENDOSCOPY [facility] [place] [address] Scheduled [...] Site lactated ringers infusion New Bag 01/20/2019 9:15 AM EDT CONTINUOUS PRN, Starting on Fri01/20/19 at 0915, Until Fri01/20/19 at 1128, Anesthesia Intra-op propofol (DIPRIVAN) 10 mg/mL bolus injection Given 9:42 AM EDT 150 mg (Anesthesia) PRN, Starting on Fri01/20/19 at 0942, Until Fri01/20/19 at 1128, Anesthesia Intra-op propofol (DIPRIVAN) infusion Restarted 01/20/2019 11:16 AM 30 mcg/kg/min 12.2 mL/hr CONTINUOUS PRN, Starting on EDT Fri01/20/19 at 0944, Until Fri01/20/19 at 1128, Anesthesia Intra-op, Routine Rate/Dose Change 01/20/2019 10:18 AM EDT 30 mcg/kg/min 12.2 mL/hr Rate/Dose Change 01/20/2019 10:05 AM EDT 150 mcg/kg/min 61.2 mL/hr succinylcholine chloride (Quelicin) inje ction Given 01/20/2019 9:45 AM EDT 10 mg PRN, Starting on Fri01/20/19 at 0943, Until Fri01/20/19 at 1128, Anesthesia Intra-op, Routine Given 01/20/2019 9:43 AM EDT 80 mg documented in this encounter Care Teams Service Unit Operator Relationship Specialty Start Date End Date Mary Lou Palacios APRN PCP - General Family Medicine 01/20/[address] [place] [address] documented as of this encounter
--- OUTSIDE RECORDS SUMMARY | 2021-10-23 00:15 | XMS_ITS | Encounter Summary ---
:1945 Author Organization [facility] [address] Care Team Providers Name Role Phone Mary Lou Palacios APRN Primary Care Provider Encounter Details Date Type Department Care Team Description 05/17/2021 Orders Only [place]astroenterology at [facility] Good Summers Adenomatous duodenal [facility] [place] [address] [facility] [phone] [place] [address] Social History Tobacco Use Types Packs/Day Years [...] [place] [address] 01/18/2022 Surgery Gastroenterology Good Summers EGD, U PPER GI MD ENDOSCOPY [facility] [place] [address] Scheduled Orders Name Type Priority Associated Diagnoses Order S chedule ENDOSCOPY CASE Procedures Routine Adenomatous duodenal Order ed: 05/17/2021 REQUEST: EGD, UPPER GI polyp ENDOSCOPY Scheduled Procedures Name Priority Associated Diagnoses Date/Time EGD, UPPER GI ENDOSCOPY Adenomatous duodenal jose yp 01/18/2022 11:30 AM EDT documented as of this encounter Visit Diagnoses Diagnosis Adenomatous duodenal polyp Other specified disorder of stomach and duodenum Adenomatous duodenal polyp Other specified disorder of stomach and duodenum documented in this encounter Care Teams Research Program Assistant Relationship Specialty Start Date End Date Mary Lou Palacios APRN PCP - General Family Medicine 01/20/19 [address] [place] [address] documented as of this encounter
--- OUTSIDE RECORDS SUMMARY | 2021-10-23 00:15 | XMS_ITS | Encounter Summary ---
:1945 Author Organization [facility] [place] [address] Care Team Providers Name Role Phone Mary Lou Palacios APRN Primary Care Provider Reason for Visit Auth/Cert Specialty Diagnoses / Procedures Referred By Contact Refer red To Contact Diagnoses EGD again in 9 months please Procedures PRO UPPER GI ENDOSCOPY, DIAGNOSTIC EGD, UPPER GI ENDOSCOPY Referral ID Status Reason Start Date Expiration Date Visits Requ ested Visits Authorized [id number] 1 1 Encounter Details Date Type Department Care Team Description 04/20/2021 Anesthesia Event Gastroenterology at [facility] Kristen Trejo MD [facility] [place] [address] [facility] Good Velazquez CRNA [facility] [place] [address] [place] [address] Anesthesia Record Procedure Summary Procedure Name Responsible Anesthesia Start Anesthesia Stop Time Anesthesiologist Time EGD WITH BIOPSY Kristen Trejo MD 04/20/21 0831 04/20/21 0853 (WRVU 2.49) (N/A Trunk) Events Date Time Event Comment 04/20/2021 0813 0831 AN Verify 0831 Start 0831 An Start Data 0838 An Induction 0838 Anesthesia Ready 0853 an stop data 0853 Recovery or ICU Handoff Patient care was transferred to the destination unit staff after review of the patient's medica l history, current anesthetic/surgi giuliana status and plan, according to the Provider Handoff Checklist. 0853 Stop Name Total IV Lidocaine 100 mg Propofol 100 mg Propofol INF 120.73 mg lactated ringers infusion 0 mL Agents Name O2 Air N2O O2 Auxiliary Flowmeter 1 Blood No blood administrations on file. Lines, Drains, and Airways Type Details Placement Removal PIV 04/20/21; 808; median vein 04/20/21808 by Bogdan mendez, 04/20/21920 by Izzy, (underside of arm), right; MARIO Linn RN [id number] catheter system; Anatomical Landmarks; US Not Used; 20 gauge; Rodrigue Hunter RN; distraction; 0; 04/20/21; 920 documented in this encounter Social History Tobacco Use Types Packs/Day Years Used Date Never Smoker Smokeless Tobacco: Never Used Alcohol Use Standard Drinks/Week Comments Yes 0 (1 standard drink = 0.6 oz pure alcoho l) holiday Alcohol Habits Answer Date Recorded How often [...] encounter OR Notes Anesthesia Postprocedure Evaluation - Kristen Trejo MD - 04/20/2021 3:43 PM EST Department of Anesthesiology Post-procedure Note Patient: Ashlie Metz Procedure Summary Date: 04/20/21 Room / Location: [facility] ENDO 3 / [facility] ENDOSCOPY Anesthesia Start: 830 Anesthesia Stop: 852 Procedures: EGD WITH BIOPSY (WRVU 2.49) (N/A Trunk) EGD, TRANSORAL; WITH ABLATION OF TUMOR(S), POLYP(S), OR OTHER LESION(S) (WRVU 4.26) (N/A Esophagus)Diagnosis: (EGD again in 9 months please) Surgeons: Good Summers MD Responsible Provider: Kristen Trejo MD Anesthesia Type: general ASA Status: 2 All Anesthesia Providers: Anesthesiologist: Kristen Trejo MD MANAGER INFORMATION: Good Hyde CRNA Vitals Value Taken Time BP 109/56 04/20/21 0920 Temp Pulse Resp SpO2 97 % 04/20/219[address] Pain Level 0 01/14/22 0920 Vitals shown include unvalidated device data. Patient Location: PACU/WIP Level of Consciousness: Conscious but Sleepy Pain Management: Satisfactory Analgesia PONV: None Cardiovascular Status: At Baseline and Hemodynamically Stable Respiratory Status: At Baseline and Supplemental O2 (NC or FM) Postoperative Fluid Status: Intravascular EUvolemia Possible Anesthetic Complications: NONE apparent at time of evaluation Final Primary Anesthesia Type: MAC (The anesthetic type performed was the same as planned.) Comments: Kristen Trejo MD Anesthesia Preprocedure Evaluation - Kristen Trejo MD - 04/20/2021 6:34 AM EST Pre-Anesthesia Evaluation for: Ashlie Metz a 75 y.o. female. Procedure(s): EGD, UPPER GI ENDOSCOPY There are no problems to display for this patient. Past Medical History: Diagnosis Date ??? Cervical cancer ??? Dyslipidemia ??? Hypertension Past Surgical History: Procedure Laterality Date ??? SECTION ??? ESOPHAGOGASTRIC FUNDOPLICATION ? ? PRO EDG FLEXIBLE TRANSORAL ABLATE TUMOR POLYP/LESION W/DILATION & WIRE N/A 01/20/2019 EGD, TRANSORAL; WITH ABLATION OF TUMOR(S), POLYP(S), OR OTHER LESION(S) (WRVU 4.26) performed by Good Summers MD at [facility] ENDOSCOPY ? ? PRO EDG FLEXIBLE TRANSORAL ABLATE TUMOR POLYP/LESION W/DILATION & WIRE N/A 04/21/2019 EGD, TRANSORAL; WITH ABLATION OF TUMOR(S), POLYP(S), OR OTHER LESION(S) (WRVU 4.26) performed by Good Summers MD at [facility] ENDOSCOPY ? ? PRO EDG FLEXIBLE TRANSORAL ABLATE TUMOR POLYP/LESION W/DILATION & WIRE N/A 11/12/2019 EGD, TRANSORAL; WITH ABLATION OF TUMOR(S), POLYP(S), OR OTHER LESION(S) (WRVU 4.26) performed by Good Summers MD at [facility] ENDOSCOPY ??? PRO ENDOSCOPIC US EXAM, ESOPH N/A 01/20/2019 UPPER EUS- ENDOSCOPIC ULTRASOUND performed by Good Summers MD at [facility] ENDOSCOPY ??? PRO ESOPHAGOSCOPY, W/DIR SUBMUC INJECTION(S) N/A 01/20/2019 ESOPHAGOSCOPY, DIAGNOSTIC, WITH DIRECTED SUBMUCOSAL INJECTION (WRVU 1.82) performed by Good Summers MD at [facility] ENDOSCOPY ??? PRO UP GI ENDOSCOPY, REMV TUMOR, SNARE 01/20/2019 EGD, W REMOVAL TUMOR/POLYPS/LESIONS BY SNARE TECHNIQUE performed by Good Summers MD at [facility] ENDOSCOPY ??? PRO UP GI ENDOSCOPY, REMV TUMOR, SNARE 11/12/2019 EGD, W REMOVAL TUMOR/POLYPS/LESIONS BY SNARE TECHNIQUE performed by Good Summers MD at [facility] ENDOSCOPY ??? PRO UPPER GI ENDOSCOPY, DIAGNOSTIC N/A 07/14/2020 EGD, UPPER GI ENDOSCOPY performed by Good Summers MD at [facility] ENDOSCOPY ??? PRO UPPER GI ENDOSCOPY, W/DIR SUBMUC INJ N/A 04/21/2019 EGD, W DIRECTED SUBMUCOSAL INJECTION(S) performed by Good Summers MD at [facility] ENDOSCOPY ??? PRO UPPER GI ENDOSCOPY, W/DIR SUBMUC INJ N/A 11/12/2019 EGD, W DIRECTED SUBMUCOSAL INJECTION(S) performed by Good Summers MD at [facility] ENDOSCOPY ??? TUBAL LIGATION Social History Tobacco Use ??? Smoking status: Never Smoker ??? Smokeless tobacco: Never Used Substance Use Topics ??? Alcohol use: Yes Comment: holidays Social History Substance and Sexual Activity Drug Use Never Allergies Allergen Reactions ??? Cephalosporins CIS - Hives ??? Penicillins CIS - Unknown Medications: MAR and/or home medications have been reviewed. Physical Exam: Preprocedure Vitals Current as of 04/20/21 0634 No BP, pulse, respiration, SpO2, or temperature recorded. Height: Weight: BMI: IBW: 33.9 kg (74 lb 11.3 oz) Airway Assessment: Mallampati: II TM distance: >3 FB Neck ROM: full Cardiovascular Assessment: Rhythm: regular Rate: normal Pulmonary Assessment: unlabored breathing Dental Assessment: Misc Assessment: IV access: Peripheral line Last Filed Perioperative Cognitive Screening None Anesthesia Plan: ASA 2 general, with a(n) intravenous induction Attending Assessment: ?? Patient personally seen and examined. ?? Ashlie Metz is a 75 y.o. 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 No recent URI. Adequate functional status Denies PONV Meds: reviewed Allergies -- Cephalosporins -- CIS - Hives -- Penicillins -- CIS - Unknown Patient Vitals in the past 24 hrs: Labs: No results for input(s): ABORH in the last 7068 hours. No results found for: HA1C No results found for: GLUCOSE NPO status adequate ?? Plan: - standard ASA monitors, PIV - MAC with prop ?? The patient was informed of the risks, benefits and alternatives of anesthesia. These risks included, but were not limited to, post-operative nausea and/or vomiting, pain, sore throat, dental/lip injury, and other rare but serious complications such as cardiac instability/arrest, neurologic event, awareness, severe allergic reactions, position-related nerve injuries, and need blood transfusions. All questions answered. Consent was signed and placed in chart. Region - Other Informed Consent: Anesthetic plan and risks discussed with patient. Plan discussed with MANAGER INFORMATION and attending. Anesthesia Screening documented in this encounter Plan of Treatment Upcoming Encounters Date Type Specialty Care Team Description 01/18/2022 Hospital Encounter Gastroenterology Good Summers MD [facility] [address] [place], [place] [address] 01/18/2022 Surgery Gastroenterology Good Summers, EGD, U PPER GI MD ENDOSCOPY [facility] [address] [place], [place] [address] Scheduled Procedures Name Priority Associated Diagnoses [...] 8:10 AM EST 100 mL/hr 100 mL/hr lidocaine (pf) (Xylocaine) (20 mg/mL) 2% Given 04/20/2021 8:38 A M EST 100 mg injection syringe Intravenous, PRN, Starting on Fri04/20/21 at 0838, Until Fri04/20/21 at 0853, Anesthesia Intra-op, Routine propofoL (Diprivan) (10 Rate/Dose 04/20/2021 8:44 130 mcg/kg/min 52. 026 mg/mL) infusion Change AM EST mL/hr Intravenous, CONTINUOUS PRN, Starting on Fri04/20/21 at 0838, Until Fri04/20/21 at 0853, Anesthesia Intra-op, Routine New Bag 04/20/2021 8:38 AM EST 150 mcg/kg/min 60.03 mL/hr propofoL (Diprivan) 10 mg/mL bolus injection Given 8:38 AM EST 100 mg (Anesthesia) Intravenous, PRN, Starting on Fri04/20/21 at 0838, Until Fri04/20/21 at 0853, Anesthesia Intra-op documented in this encounter Care Teams Correspondence Transcriber Relationship Specialty Start Date End Date Mary Lou Palacios APRN PCP - General Family Medicine 01/20/[address] [place] [address] documented as of this encounter
--- OUTSIDE RECORDS SUMMARY | 2021-10-23 00:15 | XMS_ITS | Encounter Summary ---
:1945 Author Organization [facility] [place] [address] Care Team Providers Name Role Phone Mary [...] Expiration Date Visits Requ ested Visits Authorized [id number] 1 1 Encounter Details Date Type Department Care Team Description 04/21/2019 Hospital Encounter Gastroenterology at [facility] Good Summers, [facility] [place] [address] [facility] [phone] [place] [address] Social History Tobacco Use Types Packs/Day [...] Sign Reading Time Taken Comments Blood Pressure 138/75 04/21/2019 9:02 AM EST Pulse 61 04/21/2019 7:12 AM EST Temperature 36.5 ??C (97.7 ??F) 04/21/2019 7:12 AM EST Respiratory Rate 17 04/21/2019 9:02 AM EST Oxygen Saturation 99% 04/21/2019 9:02 AM EST Inhaled Oxygen Concentration - - Weight 68 kg (150 lb) 04/21/2019 7:12 AM EST Height 142.2 cm (4' 8) 04/21/2019 7:12 AM EST Body Mass Index 33.63 04/21/2019 7:12 AM EST documented in this encounter Discharge Instructions AttachmentsThe following attachments cannot be sent through Care Everywhere.EGD (Upper Endoscopy): Post-op (Luxembourgish)documented in this encounter Medications at Time of [...] Summers MD - 04/21/2019 8:46 AM EST [facility] Operative Note Patient Name: Ashlie Metz : [id number] MR#: [id number] Case Date: 04/21/2019 Surgeon: Surgeon(s) and Role: [...] 01/18/2022 Hospital Encounter Gastroenterology Good Summers MD [facility] [place] [address] 01/18/2022 Surgery Gastroenterology Good Summers, EGD, U PPER GI ENDOSCOPY [facility] [place] [address] Scheduled Procedures [...] Component Value Ref Test Analysis Performed At [facility] Range Method Time Signature UPPER GI [facility] ENDOSCOPY Endoscopy Procedure Date: 04/21/2019 7:33 AM ? Patient Name: Ashlie Metz ? N: [id number] ? Date of : 1945 ? Age: 73 ? Order #: [id number] ? Instrument Name: [facility]-[id number] ? Procedure: ? Upper GI endoscopy Indications: ? 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 duodenal tumor of uncertain b ehavior Providers: ? Claude Monsivais ? Orly Jones, ? Pantry Goods Worker Referring MD: ?Mary Lou Adjovu Medicines: ? [...] Procedure Code(s): ?? --- Professional --- ? 75893, Esophagogastroduodenos copy, ? flexible, transoral; with abl [...] stomach and d uodenum CPT copyright 2017 [employer]. All rights reserved. The codes documented in this report are preliminary and upon data coder operator review may be revised to meet current compliance requirements. Attending Participation: ? I personally performed the entire procedure. ? Good Summers, 04/21/2019 8:45:03 AM Number of Addenda: 0 Note Initiated On: 04/21/2019 7:33 AM Specimen (Source) Anatomical Collection Method Collection Time Re ceived Time Location / / Volume Laterality 04/21/2019 7:33 AM EST Mary Lou Palacios APRN GENERAL SURGICAL ORDERABLES [...] Procedure) documented in this encounter Care Teams Building Dismantler Relationship Specialty Start Date End Date Mary Lou Palacios APRN PCP - General Family Medicine 01/20/[address] [place] [address] documented as of this encounter
--- OUTSIDE RECORDS SUMMARY | 2021-10-23 00:15 | XMS_ITS | Encounter Summary ---
:1945 Author Organization [facility] [place] [address] Care Team Providers Name Role Phone Mary [...] Expiration Date Visits Requ ested Visits Authorized [id number] 1 1 Encounter Details Date Type Department Care Team Description 07/14/2020 Anesthesia [place] [facility] Prince MD [facility] [place] [address] [place] [address] [facility] Neal Duncan CRNA [facility] [place] [address] [address] [place] [address] Anesthesia Record Procedure Summary Procedure Name Responsible Anesthesia Start Anesthesia Stop Time Anesthesiologist Time EGD, UPPER GI Alissa Prince MD 07/14/20 1045 07/14/20 1118 ENDOSCOPY (N/A Trunk) Events Date Time Event Comment 07/14/2020 1033 1045 AN Verify 1045 Start 1048 An Start Data 1051 An Induction 1052 Anesthesia Ready 1117 an stop data 1117 Recovery or ICU Handoff Patient care was transferred to the destination unit staff after review of the patient's medica l history, current anesthetic/surgi giuliana status and plan, according to the Provider Handoff Checklist. 1118 Stop Name Total IV Lidocaine 60 mg Propofol 50 mg Propofol INF 268.47 mg lactated ringers infusion 0 mL Agents Name O2 Air N2O O2 Auxiliary Flowmeter 1 Blood No blood administrations on file. Lines, Drains, and Airways Type Details Placement Removal PIV 07/14/20; 0849; cephalic 07/14/20 0849 by Gonzales, 07/14/20 1217 by enrico Townsend (lateral side of arm), MARIO Benedict RN right; [id number]-[id number]-[id number] catheter system; Anatomical Landmarks; 20 gauge; gretchen killian; 07/14/20; 1217 documented in this encounter Social History Tobacco Use Types Packs/Day Years Used Date Never Smoker Smokeless Tobacco: Never Used Alcohol Use Standard Drinks/Week Comments Yes 0 (1 standard drink = 0.6 oz pure alcoho l) hols Alcohol Habits Answer Date Recorded How often [...] encounter OR Notes Anesthesia Postprocedure Evaluation - Alissa Prince MD - 07/14/2020 6:03 PM EDT Department of Anesthesiology Post-procedure Note Patient: Ashlie Metz Procedure Summary Date: 07/14/20 Room / Location: [facility] ENDO 3 / [facility] ENDOSCOPY Anesthesia Start: 1045 Anesthesia Stop: 1117 Procedure: EGD, UPPER GI ENDOSCOPY (N/A Trunk) Diagnosis: (4 - 6 ??months for surveillance pending) Surgeons: Good Summers MD Responsible Provider: Alissa Prince MD Anesthesia Type: MAC ASA Status: 2 All Anesthesia Providers: Anesthesiologist: Alissa Prince MD TAX ADJUSTER: Nela Dee CRNA Vitals Value Taken Time BP 145/54 07/14/20 1200 Temp Pulse Resp 16 07/14/20 1200 SpO2 97 % 07/14/20 1200 Pain Level 0 07/14/20 1200 Vitals shown include unvalidated device data. Patient Location: PACU/SDP Level of Consciousness: Awake and Alert Pain Management: Satisfactory Analgesia PONV: None Cardiovascular Status: At Baseline and Hemodynamically Stable Respiratory Status: At Baseline and Room Air Postoperative Fluid Status: Intravascular EUvolemia Possible Anesthetic Complications: NONE apparent at time of evaluation Final Primary Anesthesia Type: MAC (The anesthetic type performed was the same as planned.) Comments: Alissa Prince MD Anesthesia Preprocedure Evaluation - Alissa Prince MD - 07/14/2020 10:32 AM EDT Pre-Anesthesia Evaluation for: Ashlie Metz a 74 y.o. female. Procedure(s): EGD, UPPER GI ENDOSCOPY [...] 4.26) performed by Good Summers MD at [facility] ENDOSCOPY ? ? PRO EDG FLEXIBLE TRANSORAL ABLATE TUMOR POLYP/LESION W/DILATION & WIRE N/A 04/21/2019 EGD, TRANSORAL; WITH ABLATION OF TUMOR(S), POLYP(S), OR OTHER LESION(S) (WRVU 4.26) performed by Good Summers MD at [facility] ENDOSCOPY ? ? PRO EDG FLEXIBLE TRANSORAL ABLATE TUMOR POLYP/LESION W/DILATION & WIRE N/A 11/12/2019 EGD, TRANSORAL; WITH ABLATION OF TUMOR(S), POLYP(S), OR OTHER LESION(S) (WRVU 4.26) performed by Good Summers MD at [facility] ENDOSCOPY ??? PRO ENDOSCOPIC US EXAM, ESOPH N/A 01/20/2019 UPPER EUS- ENDOSCOPIC ULTRASOUND performed by Good Summers MD at [facility] ENDOSCOPY ??? PRO ESOPHAGOSCOPY, W/DIR SUBMUC INJECTION(S) N/A 01/20/2019 ESOPHAGOSCOPY, DIAGNOSTIC, WITH DIRECTED SUBMUCOSAL INJECTION (WRVU 1.82) performed by Good Summers MD at [facility] ENDOSCOPY ??? PRO UP GI ENDOSCOPY, REMV TUMOR, SNARE 01/20/2019 EGD, W REMOVAL TUMOR/POLYPS/LESIONS BY SNARE TECHNIQUE performed by Good Summers MD at [facility] ENDOSCOPY ??? PRO UP GI ENDOSCOPY, REMV TUMOR, SNARE 11/12/2019 EGD, W REMOVAL TUMOR/POLYPS/LESIONS BY SNARE TECHNIQUE performed by Good Summers MD at [facility] ENDOSCOPY ??? PRO UPPER GI ENDOSCOPY, W/DIR SUBMUC INJ N/A 04/21/2019 EGD, W DIRECTED SUBMUCOSAL INJECTION(S) performed by Good Summers MD at [facility] ENDOSCOPY ??? PRO UPPER GI ENDOSCOPY, W/DIR SUBMUC INJ N/A 11/12/2019 EGD, W DIRECTED SUBMUCOSAL INJECTION(S) performed by Good Summers MD at [facility] ENDOSCOPY ??? TUBAL LIGATION Social History Tobacco [...] Physical Exam: Preprocedure Vitals Current as of 07/14/20 1032 BP: 148/71 Pulse: 66 Resp: 20 SpO2: 100 Temp: 37.1 ??C (98.8 ??F) Height: 142.2 cm (4' 8) (07/14/20) Weight: 66.7 kg (147 lb) (07/14/20) BMI: 32.95 IBW: Last edited 07/14/20 0843 by TK Airway Assessment: Mallampati: II TM distance: >3 FB Neck ROM: full Cardiovascular Assessment: Rhythm: regular Rate: normal Pulmonary Assessment: unlabored breathing Dental Assessment: Misc Assessment: Last Filed Perioperative Cognitive Screening None Anesthesia Plan: ASA 2 MAC, 74 yo female s/f EGD PMHx: HTN (HCTZ, lisinopril), GERD (omeprazole), sciatica pain Social Hx: no EtOH, no Tobacco, no Marijuana Physical activity: 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 Notes and labs reviewed. Patient personally seen and examined. We discussed benefits, indications, and risks of anesthesia (including but not limited to sore throat, dental injury, nerve injury, prolonged intubation, cardiac, pulmonary, or neurologic event). Plan general anesthesia, standard ASA monitors, adequate PIV access. Alissa Prince MD Informed Consent: Anesthetic plan and risks discussed with patient. Plan discussed with TAX ADJUSTER. PAT Clinic Note documented in this encounter Plan of Treatment Upcoming Encounters Date Type Specialty Care Team Description 01/18/2022 Hospital Encounter Gastroenterology Good Summers MD [facility] [address] 01/18/2022 Surgery Gastroenterology Good Summers, EGD, U PPER GI MD ENDOSCOPY [facility] [address] Scheduled Procedures Name Priority [...] 9:00 AM EDT 100 mL/hr 100 mL/hr lidocaine (pf) (Xylocaine) (20 mg/mL) 2% Given 07/14/2020 10:51 AM EDT 60 mg injection syringe Intravenous, PRN, Starting on Fri07/14/20 at 1051, Until Fri07/14/20 at 1118, Anesthesia Intra-op, Routine propofoL (Diprivan) 10 mg/mL bolus injection Given 12/2020 10:51 AM EDT 50 mg (Anesthesia) Intravenous, PRN, Starting on Fri07/14/20 at 1051, Until Fri07/14/20 at 1118, Anesthesia Intra-op propofoL (Diprivan) infusion Rate/Dose 07/14/2020 225 mcg/kg/min 90.045 Intravenous, CONTINUOUS PRN, Change 10:58 AM EDT mL/hr Starting on Fri07/14/20 at 1050, Until Fri07/14/20 at 1118, Anesthesia Intra-op, Routine New Bag 07/14/2020 10:50 AM EDT 250 mcg/kg/min 100.05 mL/hr documented in this encounter Care Teams Investor Relations Manager Relationship Specialty Start Date End Date Mary Lou Palacios APRN PCP - General Family Medicine 01/20/[address] [place] [address] documented as of this encounter
--- OUTSIDE RECORDS SUMMARY | 2021-10-23 00:15 | XMS_ITS | Encounter Summary ---
:1945 Author Organization [facility] [place] [address] Care Team Providers Name Role Phone Mary Lou Palacios APRN Primary Care Provider Encounter Details Date Type Department Care Team Description 01/27/2019 Telephone Gastroenterology at [facility] Good Summers MD [facility] Godfrey calhoun [facility] [place] [address] [place] [address] [phone] (Wo rk) Social History Tobacco Use Types [...] 01/18/2022 Hospital Encounter Gastroenterology Good Summers MD [facility] [address] [address] [address] 01/18/2022 Surgery Gastroenterology Good Summers, EGD, U PPER GI MD ENDOSCOPY [facility] [address] Scheduled Procedures Name Priority Associated Diagnoses Date/Time EGD, UPPER GI ENDOSCOPY Adenomatous duodenal jose yp 01/18/2022 11:30 AM EDT documented as of this encounter Visit Diagnoses Not on filedocumented in this encounter Care Teams Switch Inspector Relationship Specialty Start Date End Date Mary Lou Palacios APRN PCP - General Family Medicine 01/20/[address] [place] [address] documented as of this encounter
--- OUTSIDE RECORDS SUMMARY | 2021-10-23 00:15 | XMS_ITS | Encounter Summary ---
:1945 Author Organization [facility] [place] [address] Care Team Providers Name Role Phone Mary Lou Palacios APRN Primary Care Provider Reason for Visit Reason Comments Medication Refill Encounter Details Date Type Department Care Team Description 02/18/2020 Refill Gastroenterology at [facility] Good Summers MD [facility] unique [facility] [place] [address] [place] [address] [phone] (Wo rk) Social History Tobacco Use Types [...] 01/18/2022 Hospital Encounter Gastroenterology Good Summers MD [facility] [address] 01/18/2022 Surgery Gastroenterology Godo Summers, EGD, U PPER GI MD ENDOSCOPY [facility] [address] [place] [address] Scheduled Procedures Name Priority Associated Diagnoses Date/Time EGD, UPPER GI ENDOSCOPY Adenomatous duodenal jose yp 01/18/2022 11:30 AM EDT documented as of this encounter Visit Diagnoses Not on filedocumented in this encounter Care Teams Station Repairer Relationship Specialty Start Date End Date Mary Lou Palacios APRN PCP - General Family Medicine 01/20/[address] [place] [address] documented as of this encounter
--- OUTSIDE RECORDS SUMMARY | 2021-10-23 00:15 | XMS_ITS | Encounter Summary ---
:1945 Author Organization [facility] [place] [address] Care Team Providers Name Role Phone Mary [...] Expiration Date Visits Requ ested Visits Authorized [id number] 1 1 Encounter Details Date Type Department Care Team Description 04/21/2019 Anesthesia Event [place]ology [place] [facility] [place]m Mcdaniel, [facility] [place] [address] [facility] [phone] ANESTHESIOLOGY [place], [place] [address] Anesthesia Record Procedure Summary Procedure Name Responsible Anesthesia Start Anesthesia Stop Anesthesiologist Time Time EGD, Willem Khan MD 04/21/19 0803 04/21/19 083 4 SUBMUCOSAL INJECTION(S) (N/A Trunk) Events Date Time Event Comment 04/21/2019 0744 0803 AN Verify 0803 Start 0803 An Start Data 0810 An Induction 0810 Anesthesia Ready 0834 an stop data 0834 Recovery or ICU Handoff Patient care was transferred to the destination unit staff after review of the patient's medica l history, current anesthetic/surgi giuliana status and plan, according to the Provider Handoff Checklist. 0834 Stop Name Total IV Lidocaine 50 mg Propofol 150 mg Propofol INF 214.2 mg lactated ringers infusion 700 mL Agents Name O2 Blood No blood administrations on file. Lines, Drains, and Airways Type Details Placement Removal PIV 04/21/19; 724; basilic vein 04/21/[address], 04/21/19904 by Misty, (medial side of arm), right; MARIO Wise RN [id number] catheter system; 22 gauge; Radha Duenas RN; distraction, intradermal injection; no longer indicated, removed per policy/procedure; 04/21/19; 904 documented in this encounter Social History Tobacco [...] encounter OR Notes Anesthesia Postprocedure Evaluation - Willem Mcdaniel MD - 04/21/2019 9:07 AM EST Department of Anesthesiology Post-procedure Note Patient: Ashlie Metz Procedure Summary Date: 04/21/19 Room / Location: [facility] ENDO 3 / [facility] ENDOSCOPY Anesthesia Start: 802 Anesthesia Stop: 833 Procedures: EGD, W DIRECTED SUBMUCOSAL INJECTION(S) (N/A Trunk) EGD, TRANSORAL; WITH ABLATION OF TUMOR(S), POLYP(S), OR OTHER LESION(S) (WRVU 4.26) (N/A Esophagus)Diagnosis: (Per IB from Dr. Summers- Repeat EGD in 3 months from 01/20/19) (Duodenal mucosal mass/polyp found on ??endoscopy) Surgeon: Good Summers MD Responsible Provider: Willem Mcdaniel MD Anesthesia Type: MAC ASA Status: 2 All Anesthesia Providers: Anesthesiologist: Willem Mcdaniel MD TIRE CENTER MANAGER: Raj Mercer CRNA Vitals Value Taken Time BP 138/75 04/21/2019 9:02 AM Temp Pulse Resp 17 04/21/2019 9:02 AM SpO2 98 % 04/21/2019 9:05 AM Pain Level 0 04/21/2019 9:02 AM Vitals shown include unvalidated device data. Patient Location: PACU/[facility] Level of Consciousness: Awake and Alert Pain Management: Satisfactory Analgesia PONV: None Cardiovascular Status: Hemodynamically Stable and At Baseline Respiratory Status: At Baseline and Room Air Postoperative Fluid Status: Intravascular EUvolemia Possible Anesthetic Complications: NONE apparent at time of evaluation Final Primary Anesthesia Type: MAC (The anesthetic type performed was the same as planned.) Comments: Anesthesia Preprocedure Evaluation - Willem Mcdaniel MD - 04/21/2019 7:10 AM EST Pre-Anesthesia Evaluation for: Ashlie Metz a 73 y.o. female. Procedure(s): UPPER EUS- [...] 4.26) performed by Good Summers MD at [facility] ENDOSCOPY ??? PRO ENDOSCOPIC US EXAM, ESOPH N/A 01/20/2019 UPPER EUS- ENDOSCOPIC ULTRASOUND performed by Good Summers MD at [facility] ENDOSCOPY ??? PRO ESOPHAGOSCOPY, W/DIR SUBMUC INJECTION(S) N/A 01/20/2019 ESOPHAGOSCOPY, DIAGNOSTIC, WITH DIRECTED SUBMUCOSAL INJECTION (WRVU 1.82) performed by Good Summers MD at [facility] ENDOSCOPY ??? PRO UP GI ENDOSCOPY, REMV TUMOR, SNARE 01/20/2019 EGD, W REMOVAL TUMOR/POLYPS/LESIONS BY SNARE TECHNIQUE performed by Good Summers MD at [facility] ENDOSCOPY ??? TUBAL LIGATION Social [...] 2 MAC, with a(n) intravenous induction 73 y/o woman with a PMH of HTN, HLD and duodenal mass/polyp who presents for f/u EGD. Tolerated prior EGD/EUS under GA. Plan for MAC vs. GA. Region - Other Informed Consent: Anesthetic plan and risks discussed with patient. Plan discussed with TIRE CENTER MANAGER. PAT Clinic Note documented in this encounter Plan of Treatment Upcoming Encounters Date Type Specialty Care Team Description 01/18/2022 Hospital Encounter Gastroenterology Good Summers MD [facility] [address] 0[address] 01/18/2022 Surgery Gastroenterology Good Summers, EGD, U PPER GI ENDOSCOPY [facility] [address] 0375 [...] Site lidocaine (PF) (XYLOCAINE) 100 mg/5 Given 04/21/2019 8:10 AM EST 50 mg mL (2 %) injection PRN, Starting on Fri04/21/19 at 0810, Until Fri04/21/19 at 0834, Anesthesia Intra-op, Routine propofol (DIPRIVAN) 10 mg/mL bolus injection Given 0 8:16 AM EST 50 mg (Anesthesia) PRN, Starting on Fri04/21/19 at 0810, Until Fri04/21/19 at 0834, Anesthesia Intra-op Given 04/21/2019 8:10 AM EST 100 mg propofol (DIPRIVAN) infusion New Bag 04/21/2019 8:10 AM 150 mcg/kg/min 61.2 mL/hr CONTINUOUS PRN, Starting on EST Fri04/21/19 at 0810, Until Fri04/21/19 at 0834, Anesthesia Intra-op, Routine documented in this encounter Care Teams Limerock Tower Loader Relationship Specialty Start Date End Date Mary Lou Palacios APRN PCP - General Family Medicine 01/20/[address] [place] [address] documented as of this encounter
--- OUTSIDE RECORDS SUMMARY | 2021-10-23 00:15 | XMS_ITS | Encounter Summary ---
:1945 Author Organization [facility] [place] [address] Care Team Providers Name Role Phone Mary Lou Palacios APRN Primary Care Provider Encounter Details Date Type Department Care Team Description 01/08/2021 Telephone Gastroenterology at [facility] Chelle Mendoza [facility] [place] [address] Social History Tobacco Use Types Packs/Day [...] this encounter Miscellaneous Notes Telephone Encounter - Chelle Mendoza E - 01/08/2021 3:53 PM EDT Ashlie Metz [id number] Diagnosis/Indication: repeat 9 month 1. Have you ever had a/an Upper Endoscopy before? Yes: Date 2020 If yes, did you have any problems with the procedure? No What type of sedation was used: None 2. Do you take any blood thinners [...] the gender of your provider? No Preference ousmane 12. Is there any other information you would like to us to note for the provider and nursing team who will perform your case? No 13. Say to patient: You must have a responsible alliance party who will drive you to your procedure, stay on campus for the entire duration of your procedure, and drive you home from your procedure? *Please Verify the height and weight, and adjust if height and/or weight have changed* Estimated body mass index is 32.96 kg/m?? as calculated from the following: Height as of 07/14/20: 142.2 cm (4' 8). Weight as of 07/14/20: 66.7 kg (147 lb). Age:75 y.o. documented in this encounter Plan [...] on filedocumented in this encounter Care Teams Operations Systems Specialist Relationship Specialty Start Date End Date Mary Lou Palacios APRN PCP - General Family Medicine 01/20/[address] [place] [address] documented as of this encounter
--- OUTSIDE RECORDS SUMMARY | 2021-10-23 00:15 | XMS_ITS | Encounter Summary ---
:1945 Author Organization [facility] [place] [address] Care Team Providers Name Role Phone Mary Lou Palacios APRN Primary Care Provider Reason for Visit Auth/Cert Specialty Diagnoses / Procedures Referred By Contact Refer red To Contact Diagnoses EGD again in 9 months please Procedures PRO UPPER GI ENDOSCOPY, DIAGNOSTIC EGD, UPPER GI ENDOSCOPY Referral ID Status Reason Start Date Expiration Date Visits Requ ested Visits Authorized [id number] 1 1 Encounter Details Date Type Department Care Team Description 04/20/2021 Hospital Encounter Gastroenterology at [facility] Good Summers, [facility] [place] [address] [facility] [phone] [place] [address] Social History Tobacco Use Types Packs/Day [...] the day after the test, use an rmcx-qil-epprknm spray to numb your throat. Follow-up care [...] Where can you learn more? Scan the Vita Coco or Visit our Zadspace information library at [email or web address] You can also view health information on [facility], your personal patient account. Log in or sign up today. Enter J454 in the search box to learn more about Upper GI Endoscopy: What to Expect at Home. Current as of: December 13, 2020?Content Version: 13.1 ?? 4128-1084 [employer]ur[employer]. Care instructions adapted under license by [facility]. If you have questions about a medical condition or this instruction, always ask your healthcare professional. [employer] disclaims any warranty or liability for your [...] Operative Note Patient Name: Ashlie Metz : [id number] MR#: [id number] Case Date: 04/20/2021 Surgeon: Surgeon(s) and Role: * Good Summers MD - Primary Procedure(s): EGD WITH BIOPSY (WRVU 2.49) EGD, TRANSORAL; WITH ABLATION OF TUMOR(S), POLYP(S), OR OTHER LESION(S) (WRVU 4.26) Please see Provation report for details. documented in this encounter Plan of Treatment Upcoming Encounters Date Type Specialty Care Team Description 01/18/2022 Hospital Encounter Gastroenterology Good Summers MD [facility] [address] 01/18/2022 Surgery Gastroenterology Good Summers, EGD, U PPER GI ENDOSCOPY [facility] [address] Scheduled [...] Component Value Ref Test Analysis Performed At [facility] Method Time Signature Surgical [id number] ? Location: 4; [facility]; [facility] Report The signing pathologist has (i) examined the relevant preparation(s) for the [facility] specimen(s) and (ii) rendered or confirmed the diagnosis(es) . HOSPITAL LABORATORY . ?Surgic al Pathology DIAGNOSIS A - Normal duodenal bulb bx, biopsy: - ??Fragments of tubular adenoma. Electronically signed by: ?Joseph RODNEY PhD, Trang Verified: ??04/26/2021 16:22 ??Pathologist Performed at: ??-[facility] Dept. of [place]ology, [place], [place] SPECIMEN(S) SUBMITTED A - Normal duodenal [...] Organization Address City/State/ZIP Code Phon e Number [address] Specimen to Pathology (04/20/2021 8:55 AM EST) Specimen Anatomical Collection Method Collection Time Receive d Time (Source) Location / / Volume Laterality AP Specimen 04/20/2021 8:55 AM 8:55 EST AM EST Narrative [facility] LAB[facility]Y - 04/20/2021 8:55 AM EST Specimen requisition ordered. ??Separate Pathology report to follow Good Summers MD PATHOLOGY/CYTOLOGY ORDERABLE S Performing Organization Address City/[facility]/ZIP Code Phon e Number [address] UPPER GI ENDOSCOPY (04/20/2021 7:42 AM EST) Component Value Ref Test Analysis Performed At [facility] gist Range Method Time Signature UPPER GI [facility] ENDOSCOPY Endoscopy Procedure Date: 04/20/2021 7:42 AM ? Patient Name: Ashlie Metz ? Date of : 1945 ? Age: 75 ? Order #: [id number] ? Instrument Name: [id number] ? Procedure: ? Upper GI endoscopy Indications: ? 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 duodenal tumor of uncertain b ehavior Providers: ? Good Summers, Alyssa de león, ? RN, Olga Lidia Cueva, Angelica warner Referring MD: ?Mary Lou Adjovu Medicines: ? [...] reactions. The ? Endoscope was introduced thro h the ? mouth, and advanced to the [...] Procedure Code(s): ?? --- Professional --- ? 28887, Esophagogastroduodenos copy, ? flexible, transoral; with abl ation of ? tumor(s), polyp(s), or other ? lesion(s) (includes pre- and ? post-dilation and guide wire passage, ? when performed) ? 34372, 59, ? Esophagogastroduodenoscopy, f lexible, ? transoral; with biopsy, singl e or ? multiple Diagnosis Code(s): ?? --- Professional --- ? 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 K31.89, Other diseases of sto mach and ? duodenum CPT copyright 2019 [employer]. All rights reserved. The codes documented in this report are preliminary and upon epidemiology internship review may be revised to meet current compliance requirements. Attending Participation: ? I personally performed the entire procedure. ? Good Summers, 04/20/2021 8:59:04 AM Number of Addenda: 0 Note Initiated On: 04/20/2021 7:42 AM Specimen (Source) Anatomical Collection Method Collection Time Re ceived Time Location / / Volume Laterality 04/20/2021 7:42 AM EST Mary Lou Adjovu METER REPAIRER HELPER GENERAL SURGICAL ORDERABLES Performing Organization Address City/State/ZIP [...] Procedure) documented in this encounter Care Teams Drying Rack Changer Relationship Specialty Start Date End Date Mary Lou Palacios APRN PCP - General Family Medicine 01/20/[address] [place] [address] documented as of this encounter
--- OUTSIDE RECORDS SUMMARY | 2021-10-23 00:15 | XMS_ITS | Encounter Summary ---
:1945 Author Organization [facility] [place] [address] Care Team Providers Name Role Phone Mary Lou Palacios APRN Primary Care Provider Encounter Details Date Type Department Care Team Description 01/20/2019 Orders Only Gastroenterology at [facility] Good Summers MD [facility] [place] [address] [place] [address] (Wo rk) Social History Tobacco Use Types [...] Summers, EGD, U PPER GI MD ENDOSCOPY [facility] [address] [place] [address] Scheduled Procedures Name Priority Associated Diagnoses Date/Time EGD, UPPER GI ENDOSCOPY Adenomatous duodenal jose yp 01/18/2022 11:30 AM EDT documented as of this encounter Visit Diagnoses Not on filedocumented in this encounter Care Teams Bag Filler Machine Operator Relationship Specialty Start Date End Date Mary Lou Palacios APRN PCP - General Family Medicine 01/20/[address] [place] [address] documented as of this encounter
--- OUTSIDE RECORDS SUMMARY | 2021-10-23 00:15 | XMS_ITS | Encounter Summary ---
:1945 Author Organization [facility] [place] [address] Care Team Providers Name Role Phone Mary Lou Palacios APRN Primary Care Provider Reason for Visit Reason Onset Date Comments Triage 04/12/2021 covid Encounter Details Date Type Department Care Team Description 04/12/2021 Telephone Public Health at [facility] C Chasity Cortez, Triage (covid) [facility] [place] [address] Social History Tobacco Use Types Packs/Day [...] this encounter Miscellaneous Notes Telephone Encounter - Chasity Cortez RN - 04/12/2021 3:35 PM EST Caller with questions regarding exposure and what she needs to do if anything. Education provided documented in this encounter Plan of Treatment Upcoming Encounters Date Type Specialty Care Team Description 01/18/2022 Hospital Encounter Gastroenterology Good Summers MD [facility] [address] [place] [address] 01/18/2022 Surgery Gastroenterology Good Summers, EGD, U PPER GI MD ENDOSCOPY [facility] [address] [address] Scheduled Procedures Name Priority Associated Diagnoses Date/Time EGD, UPPER GI ENDOSCOPY Adenomatous duodenal jose yp 01/18/2022 11:30 AM EDT documented as of this encounter Visit Diagnoses Not on filedocumented in this encounter Care Teams Automobile Racer Relationship Specialty Start Date End Date Mary Lou Palacios APRN PCP - General Family Medicine 01/20/[address] [place] [address] documented as of this encounter
--- OUTSIDE RECORDS SUMMARY | 2021-10-23 00:15 | XMS_ITS | Encounter Summary ---
:1945 Author Organization [facility] Address [facility] [place] [address] Care Team Providers Name Role Phone Mary [...] Expiration Date Visits Requ ested Visits Authorized [id number] 1 1 Encounter Details Date Type Department Care Team Description 07/14/2020 Surgery Gastroenterology at [facility] Good Summers, EGD, UPPER GI [facility] [address] [place] [address] [facility] [phone] [place], [place] [address] Social History Tobacco Use Types [...] Sign Reading Time Taken Comments Blood Pressure 148/71 07/14/2020 8:43 AM EDT Pulse 66 07/14/2020 8:43 AM EDT Temperature 37.1 ??C (98.8 ??F) 07/14/2020 8:43 AM EDT Respiratory Rate 20 07/14/2020 8:43 AM EDT Oxygen Saturation 100% 07/14/2020 8:43 AM EDT Inhaled Oxygen Concentration - - [...] the day after the procedure, use an yrmb-jjy-xeauqdr spray to numb yourthroat. Sucking on throat [...] occurs, please contact your Doctor. Please call [phone] before 8pm Mon-Fri with problems, questions or concerns. If you call after 8pm or on weekends, call the Hospital at [phone] and ask to speak to the Educational Manager disease education specialist and the coating machine operator will contact that person for you. When should you call for help? Call [phone] anytime you think you may need emergency [...] After Visit Summary and more online at [email or web address] If you would like to provide [...] cost to you. Content Version: 12.2 ?? 5007-0761 [employer]. Care instructions adapted under license by [facility]. If you have questions about a medical condition or this instruction, always ask your healthcare professional. [employer] disclaims any warranty or liability for your [...] Summers MD - 07/14/2020 10:55 AM EDT [facility] Operative Note Patient Name: Ashlie Metz : [id number] MR#: [id number] Case Date: 07/14/2020 Surgeon: Surgeon(s) and Role: * Good Summers MD - Primary Preoperative diagnosis: 4 - 6 ??months for surveillance pending Postoperative diagnosis: * No post-op diagnosis entered * Procedure(s): EGD, UPPER GI ENDOSCOPY Please see Provation report for details. documented in this encounter Plan of Treatment Upcoming Encounters Date Type Specialty Care Team Description 01/18/2022 Hospital Encounter Gastroenterology Good Summers MD [facility] [address] [address] 01/18/2022 Surgery Gastroenterology Good Summers, EGD, U PPER GI MD ENDOSCOPY [facility] [address] Scheduled Procedures Name Priority [...] Component Value Ref Test Analysis Performed At [facility] Range Method Time Signature UPPER GI [facility] ENDOSCOPY Endoscopy Procedure Date: 07/14/2020 10:14 AM ? Patient Name: Ashlie Metz ? Date of : 1945 ? Age: 74 ? Order #: [id number] ? Instrument Name: [id number] ? Procedure: ? Upper GI endoscopy Indications: ? For therapy of duodenal tumor, For ? 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 Good Summers, Ashlee Randle, MARIO, ? Kip Marshall Referring MD: ?Mary Lou [...] Procedure Code(s): ?? --- Professional --- ? 58715, Esophagogastroduodenos copy, ? flexible, transoral; with abl [...] stomach and d uodenum CPT copyright 2019 [place] [employer]. All rights reserved. The codes documented in this report are preliminary and upon manager interface review may be revised to meet current [...] Procedure) documented in this encounter Care Teams Library Cataloging Technician Relationship Specialty Start Date End Date Mary Lou Palacios APRN PCP - General Family Medicine 01/20/[address] [place] [address] documented as of this encounter
--- OUTSIDE RECORDS SUMMARY | 2021-10-23 00:15 | XMS_ITS | Encounter Summary ---
:1945 Author Organization [facility] [place] [address] Care Team Providers Name Role Phone Mary [...] Expiration Date Visits Requ ested Visits Authorized [id number] 1 1 Encounter Details Date Type Department Care Team Description 01/20/2019 Hospital Encounter Gastroenterology at [facility] Good Summers, [facility] [place] [address] [facility] [phone] [place] [address] Social History Tobacco Use Types Packs/Day [...] Sign Reading Time Taken Comments Blood Pressure 140/59 01/20/2019 12:30 PM EDT Pulse 64 01/20/2019 8:52 AM EDT Temperature 36.5 ??C (97.7 ??F) 01/20/2019 8:52 AM EDT Respiratory Rate 18 01/20/2019 12:30 PM EDT Oxygen Saturation 96% 01/20/2019 12:30 PM EDT Inhaled Oxygen Concentration - - Weight 68 kg (150 lb) 01/20/2019 8:52 AM EDT Height 142.2 cm (4' 8) 01/20/2019 8:52 AM EDT Body Mass Index 33.63 01/20/2019 8:52 AM EDT documented in this encounter Discharge Instructions Discharge InstructionsClaude Jones RN - 01/20/2019 11:34 AM EDT Same Day Endo [phone]-[id number] Otherwise contact [phone] and ask to speak to the power engineer corrections identification technician AttachmentsThe following attachments cannot be sent through Care Everywhere.EGD (Upper Endoscopy): Post-op (Gibraltarian)documented in this encounter Medications at Time of [...] Summers MD - 01/20/2019 11:47 AM EDT [facility] Operative Note Patient Name: Ashlie Metz : [id number] MR#: [id number] Case Date: 01/20/2019 Surgeon: Surgeon(s) and Role: [...] Hospital Encounter Gastroenterology Good Summers MD [facility] [address] [place] [address] 01/18/2022 Surgery Gastroenterology Good Summers, EGD, U PPER GI MD ENDOSCOPY [facility] [address] [address] Scheduled Procedures Name [...] 01/20/2019 9:28 AM Per IB from ENDOSCOPIC EDT Kristopher- EUS with ULTRASOUND planned resection of duodenal [...] 11:24 01/20/2019 AM EDT 11:24 AM EDT [facility] LABORAT ORY - 01/20/2019 11:24 AM EDT Specimen requisition ordered. ??Separate Pathology report to follow Good Summers MD PATHOLOGY/CYTOLOGY ORDERABLE S Performing Organization Address City/State/[place] [address] Surgical Pathology Report (01/20/2019 11:09 AM EDT) Component Value Ref Test Analysis Performed At [facility] gist Range Method Time Signature Surgical [id number] ? Location: 4T; EA08; A [facility] Report The signing pathologist has (i) examined the relevant preparation(s) for the [facility] specimen(s) and (ii) rendered or confirmed the [...] Redman MD Verified: ??01/26/2019 ?Pathologist Performed at: ??-[facility] Dept. of Pathology, [place], [place] ADDITIONAL STUDIES Immunohistochemistry Studies: Formalin-fixed, paraffin-emb edded tissue sections are studied using the polymer technique with appropriate positive and negative controls. ?These IHC studies provide the pathologist wit h adjunctive diagnostic information. Antibody specificity has been verified by siena g antibodies on a series of in-house [...] Organization Address City/State/[place] [address] UPPER EUS-ENDOSCOPIC ULTRASOUND (01/20/2019 8:59 AM EDT) Component Value Ref Test Analysis Performed At [facility] Range Method Time Signature UPPER [facility] ENDOSCOPIC Endoscopy ULTRASOUND _ Procedure Date: 01/20/2019 8:59 AM ? Patient Name: Ashlie Metz ? Date of : 1945 ? Age: 73 ? Order #: [id number] ? Instrument Name: [id number] ? Procedure: ? Upper EUS Indications: ? [...] Procedure Code(s): ?? --- Professional --- ? [address]0631, 59, ? Esophagogastroduodenoscopy, f lexible, ? transoral; with endoscopic mu cosal ? resection ? 03379, Esophagogastroduodenos copy, ? flexible, transoral; with abl ation of ? tumor(s), polyp(s), or other ? lesion(s) (includes pre- and ? post-dilation and guide wire passage, ? when performed) ? 06370, Esophagogastroduodenos copy, ? flexible, transoral; with end oscopic ? ultrasound examination limite d to the ? esophagus, stomach or duodenu m, and ? adjacent structures Diagnosis Code(s): ?? --- Professional --- ? K31.89, Other diseases of sto mach and ? duodenum ? K31.7, Polyp of stomach and d uodenum CPT copyright 2017 [employer]. All rights reserved. The codes documented in this report are preliminary and upon lithographer helper review may be revised to meet current compliance requirements. Attending Participation: ? I personally performed the entire procedure. ? Good Summers, 01/20/2019 11:29:20 AM Number of Addenda: 0 Note Initiated On: 01/20/2019 8:59 AM Specimen (Source) Anatomical Collection Method Collection Time Re ceived Time Location / / Volume Laterality 01/20/2019 8:59 AM EDT Vesta Hardy PHLEBOTOMY MANAGER GENERAL SURGICAL ORDERABLES Performing Organization Address City/State/ZIP [...] Procedure) documented in this encounter Care Teams Trimmer Buffing Wheel Relationship Specialty Start Date End Date Mary Lou Palacios APRN PCP - General Family Medicine 01/20/[address] [place] [address] documented as of this encounter
--- OUTSIDE RECORDS SUMMARY | 2021-10-23 00:16 | XMS_ITS | Encounter Summary ---
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 Remberto Joy [facility] Gastro 4l Procedures Consult MD Brodie [facility] [address] [place] [id number] Referral ID Status Reason Start Date Expiration Date Visits Requ ested Visits Authorized [id number] Closed 11/11/2018 11/11/2019 1 1 Encounter Details Date Type Department Care Team Description 12/10/2018 Office Visit Gastroenterology at [facility] Kip Conner Cueva's esophagus [facility] [place]frey [place] [address] [facility] [phone] [place] [address] Social History Tobacco Use Types Packs/Day Years [...] drinks on one Not asked occasion? Comment: Not asked Sex Assigned at Date Recorded Not on file documented as of this encounter Last Filed Vital Signs Vital Sign Reading Time Taken Comments Blood Pressure 149/70 12/10/2018 9:13 AM EDT Pulse 73 12/10/2018 9:13 AM EDT Temperature - - Respiratory Rate - - Oxygen Saturation - - Inhaled Oxygen Concentration - - Weight 71.8 kg (158 lb 6.4 oz) 12/10/2018 9:13 AM EDT Height 142.2 cm (4' 8) 12/10/2018 9:13 AM EDT Body Mass Index 35.51 12/10/2018 9:13 AM EDT documented in this encounter Progress Notes Kip Conner MD - 12/10/2018 9:00 AM EDT Chief Complaint: Ashlie Metz is a 73 y.o. patient referred for consultation by Dr. Joy for duodenal polyp and Cueva's esophagus. History of Present Illness: 73 y.o. female with history of endoscopic surveillance of a duodenal polyp (see below). Longstanding history of GERD including reflux esophagitis - fundoplication over 10 years since. No issues since. Currently no dysphagia, heartburn, nausea and vomiting, dyspepsia, abdominal pain, altered bowel movements, blood in stools or melena. Appetite and weight stable. Medications: Current Outpatient Medications Medication Sig Dispense Refill ??? lisinopril-hydrochlorothiazide (PRINZIDE;ZESTORETIC) 10-12.5 mg Tablet Take by mouth daily. ??? simvastatin (ZOCOR) 40 mg tablet 40mg, PO, Once daily ??? triamcinolone (KENALOG) 0.1 % cream ??? multivitamin capsule ??? Calcium 500 mg Tab (Patient not taking: No sig reported) No current facility-administered medications for this visit. Allergies: is allergic to cephalosporins and penicillins. Past Medical History: has a past medical history of Cervical cancer, Dyslipidemia, and Hypertension. Past Surgical History: has a past surgical history that includes Esophagogastric fundoplication; section; and Tubal ligation. Family History: family history includes Colorectal Cancer (age of onset: 68) in her mother. There is no family history of colorectal cancer, IBD, or celiac disease. Social History: reports that she has never smoked. She has never used smokeless tobacco. She reportsthat she drinks alcohol. ROS: Constitutional: no unexplained weight loss HEENT: no visual changes, no URI symptoms Cardio: no chest pain Resp: no cough, no SOB, or orthopnea Hem/Lymph: no new lumps or bumps on body GI: see HPI : no dysuria Integumentary: no new rashes Musculoskeletal: no new joint pains Neuro: no new numbness, weakness in extremities Physical Exam: VITAL SIGNS: BP 149/70 (BP Location (NBP): Right arm, Patient Position: Sitting, BP Cuff Sizes: Adult (25-34 cm)) Pulse 73 Ht 142.2 cm (4' 8) Wt 71.8 kg (158 lb 6.4 oz) BMI 35.51 kg/m?? BMI: Body mass index is 35.51 kg/m??. General: Appears stated age, NAD Eyes: Normal sclera, normal conjunctiva ENT: Moist mucus membranes Lymph: No lymphadenopathy of the head or neck Heart: Normal heart sounds, no added sounds or murmurs Lungs: Normal breath sounds bilaterally, no adventitious sounds Abdomen: Soft, non-tender, no masses, no organomegaly, normal active bowel sounds, VELVET deferred Extremities: Normal pulses, no pedal edema Skin: No jaundice, no spider nevi, no palmar erythema Neuro: No asterixis, grossly intact Mental: Appropriate affect, oriented in person, place, and time Laboratory studies, imaging, procedures and prior interventions: Relevant prior investigations and interventions were carefully reviewed. Of particular relevance is the followin/12 EGD: ? Esophagus, distal, biopsies: 1.?Squamous mucosa with increased intraepithelial eosinophils (maximum count of 7 eosinophils per high power field), suggestive of reflux changes.? 2.? Columnar mucosa with no specific pathologic features. 3.? Negative for intestinal metaplasia.? 12/19 EGD: A.?SMALL BOWEL, DUODENUM, POLYP, BIOPSY: - Polypoid gastric heterotopia. - Negative for dysplasia. - Deeper sections have been reviewed. C.?ESOPHAGUS, DISTAL, BIOPSY: - Squamocolumnar junctional mucosa with active reflux esophagitis and focal indefinite for dysplasia. - Deeper sections have been reviewed. 09/19 EGD: ESOPHAGUS, DISTAL, BIOPSY: -?Cardia-oxyntic mucosa with foveolar hyperplasia and focal multi-layered epithelium. Negative for intestinal metaplasia or dysplasia. See comment. -?Adjoining squamous mucosa with features of reflux esophagitis. Comment: Multi-layered epithelium has been shown in association with adjacent intestinal metaplasia and may warrant follow up surveillance as Cueva's esophagus. No definitive intestinal metaplasia is present in this biopsy. 11/21 EGD: A. DUODENUM, BIOPSY: - Focal low-grade dysplasia in a background of polypoid peptic duodenitis. - Comment: Senior Web Designer slides of this case were reviewed at the intradepartmental GI consultation conference. Deeper sections were reviewed on block (A1) and (A3). C. ESOPHAGUS, DISTAL, BIOPSY: - Gastroesophageal junction mucosa with active reflux esophagitis. - Negative for intestinal metaplasia; Negative for dysplasia.? 05/25 EGD: DUODENUM, BULB, BIOPSY: - Polypoid peptic duodenitis with reactive changes. - Negative for dysplasia or malignancy. -Comment: Senior Web Designer slides from the prior duodenal biopsy ([id number] part A) were reviewed in correlation with the current material. Senior Web Designer slides of the current case were reviewed at the intradepartmental consultation conference. 11/23 EGD: carpet like polyp in duodenum (D!) and irregular z-line A. SMALL INTESTINE, DUODENAL MASS, BIOPSY: - Hyperplastic/ hamartomatous polypoid lesion with foveolar-type dysplasia and architectural complexity. - See comment. Case also reviewed at the intradepartmental consensus with Dr. Lisbeth Jeffries who concurs with impression. - C. GASTROESOPHAGEAL JUNCTION, BIOPSY: - Squamous mucosa with features of reflux esophagitis. - Cardia-oxyntic mucosa with reactive features; negative for definite intestinal metaplasia or dysplasia. Impression: Ms. Metz is a 73 y.o. patient with the following issues: 1. 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 Subsequent scopes have not shown intestinal metaplasia (biopsies on two subsequent occasions). 2. Duodenal polyp - variable pathology over the years since detection in 2013 but now appears to have grown and evidence of dysplasia on biopsies. Recommendations: 1. We discussed options at this point - including me assessing for possible removal. 2. Given potential complexity of endoscopic removal as well as potential role of EUS and/or EMR 2. I discussed this with my advanced therapeutic colleague Dr Madi Summers who concurs with the above plan. 3. The GI booking secretary specialist will contact you once a time is arranged. 4. If any concerns arise please contact me. 5. Suggest repeat Cueva's surveillance EGD locally in 3 years. Kip Conner MD, [facility], [facility] Swallowing [facility] Direct Support Staff Member, Section of Gastroenterology [place] [address] Copy: Patricia Davalos MD (Inactive) [address] / [facility] [address] documented in this encounter Plan of Treatment Upcoming Encounters Date Type Specialty Care Team Description 01/18/2022 Hospital Encounter Gastroenterology Good Summers MD [facility] [address] [place] [address] 01/18/2022 Surgery Gastroenterology Good Summers, EGD, U PPER GI MD ENDOSCOPY [facility] [address] [place] [address] Scheduled Procedures Name Priority Associated Diagnoses Date/Time EGD, UPPER GI ENDOSCOPY Adenomatous duodenal jose yp 01/18/2022 11:30 AM EDT documented as of this encounter Visit Diagnoses Diagnosis 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
--- OUTSIDE RECORDS SUMMARY | 2021-10-23 00:16 | XMS_ITS | Encounter Summary ---
:1945 [place] [address] Care Team Providers Name Role Phone Mary Lou Palacios APRN Primary Care Provider Encounter Details Date Type Department Care Team Description 12/28/2018 Telephone Gastroenterology at [facility] [place] [address] Social History Tobacco Use Types Packs/Day [...] this encounter Miscellaneous Notes Telephone Encounter - Nataliia Drew - 12/29/2018 2:39 PM EDT Pt called again to speak with Dr. Summers. Made pt aware he is out of the office for the remainder of the week. She is wondering if he may be able to call her on Friday, after 2:30, as she works until then and is not able to answer while at work. Telephone Encounter - Ankita Moreira - 12/28/2018 3:08 PM EDT Caller and relationship to patient (if other than patient): self Best time to reach caller: any time after 2:30 PM Message or Reason for Call: Patient calling about surgery on 01/20/19 Appt Needed and Reason: Scheduled Provider: Kristopher documented in this encounter Plan of Treatment Upcoming Encounters Date Type Specialty Care Team Description 01/18/2022 Hospital Encounter Gastroenterology Good Summers MD [facility] [address] [address] 01/18/2022 Surgery Gastroenterology Good Summers, EGD, U PPER GI ENDOSCOPY [facility] [address] [address] Scheduled Procedures Name Priority Associated Diagnoses Date/Time EGD, UPPER GI ENDOSCOPY Adenomatous duodenal jose yp 01/18/2022 11:30 AM EDT documented as of this encounter Visit Diagnoses Not on filedocumented in this encounter Care Teams License Examiner Relationship Specialty Start Date End Date Mary Lou Palacios APRN PCP - General Family Medicine 01/20/[address] [place] [address] documented as of this encounter
--- OUTSIDE RECORDS SUMMARY | 2021-10-23 00:16 | XMS_ITS | Encounter Summary ---
:1945 Author Organization [facility] [address] Care Team Providers Name Role Phone Vesta Hardy CATARINO Primary Care Provider Encounter Details Date Type Department Care Team Description 01/14/2019 Telephone Gastroenterology at [facility] Anu Waite [facility] RAIMUNDO Gutierrez [phone] Social History Tobacco Use Types Packs/Day [...] this encounter Miscellaneous Notes Telephone Encounter - Anu Waite - 01/14/2019 12:57 PM EDT Pt looking to speak with Dr. Summers. Let her know I would let her know he called and ask that he please give her a call back at [phone]. She will be available after 2 pm documented in this encounter Plan of Treatment Upcoming Encounters Date Type Specialty Care Team Description 01/18/2022 Hospital Encounter Gastroenterology Good Summers MD [facility] [address] [place] [address] 01/18/2022 Surgery Gastroenterology Good Summers, EGD, U PPER GI MD ENDOSCOPY [facility] [address] [place], [place] [address] Scheduled Procedures Name Priority Associated Diagnoses Date/Time EGD, UPPER GI ENDOSCOPY Adenomatous duodenal jose yp 01/18/2022 11:30 AM EDT documented as of this encounter Visit Diagnoses Not on filedocumented in this encounter Care Teams Rehabilitation Nurse Relationship Specialty Start Date End Date Vesta Hardy APRN PCP - General Family Medicine 12/18/18 01/19/[address] [place] [address] documented as of this encounter
--- OUTSIDE RECORDS SUMMARY | 2021-10-23 00:16 | XMS_ITS | Encounter Summary ---
:1945 Author Organization [place] [place] [address] Care Team Providers Name Role Phone Patricia Davalos MD Primary Care Provider Encounter Details Date Type Department Care Team Description 12/10/2018 Telephone [place] [facility] [place] Teena Menjivar [facility] [place] [phone] Social History Tobacco Use Types Packs/Day [...] this encounter Miscellaneous Notes Telephone Encounter - Teena Menjivar - 12/10/2018 3:13 PM EDT Left message for patient to contact the office for scheduling. Per Dr Summers, the patient needs an EUS with planned resection of duodenal polyp w./Dr Summers. Propofol. Patient needs to be scheduled NOAM.Case has been built. documented in this encounter Plan of Treatment Upcoming Encounters Date Type Specialty Care Team Description 01/18/2022 Hospital Encounter Gastroenterology Good Summers MD [facility] [address] [place] [address] 01/18/2022 Surgery Gastroenterology Good Summers, EGD, U PPER GI MD ENDOSCOPY [facility] [address] [place], [place] [address] Scheduled Procedures Name Priority Associated Diagnoses Date/Time EGD, UPPER GI ENDOSCOPY Adenomatous duodenal jose yp 01/18/2022 11:30 AM EDT documented as of this encounter Visit Diagnoses Not on filedocumented in this encounter Care Teams Shell Sorter Relationship Specialty Start Date End Date Patricia Davalos MD PCP - General 02/27/10 12/17/18 [address] [place] [address] documented as of this encounter
--- OUTSIDE RECORDS SUMMARY | 2021-10-23 00:16 | XMS_ITS | Encounter Summary ---
:1945 Author Organization [facility] [place] [address] Care Team Providers Name Role Phone Patricia Davalos MD Primary Care Provider Encounter Details Date Type Department Care Team Description 12/10/2018 Telephone [place]ology at [facility] [place] Yancy Chaudhary [facility] [place] [address] Social History Tobacco Use Types Packs/Day Years [...] this encounter Miscellaneous Notes Telephone Encounter - Yancy Chaudhary - 12/10/2018 3:11 PM EDT Called pt to schedule her for a 90 min EUS with hema and with Dr Summers. Case is built. No answer so left a vm documented in this encounter Plan of Treatment Upcoming Encounters Date Type Specialty Care Team Description 01/18/2022 Hospital Encounter Gastroenterology Good Summers MD [facility] [address] [place] [address] 01/18/2022 Surgery Gastroenterology Good Summers, EGD, U PPER GI MD ENDOSCOPY [facility] [address] [place], [place] [address] Scheduled Procedures Name Priority Associated Diagnoses Date/Time EGD, UPPER GI ENDOSCOPY Adenomatous duodenal jose yp 01/18/2022 11:30 AM EDT documented as of this encounter Visit Diagnoses Not on filedocumented in this encounter Care Teams Construction Contractor Relationship Specialty Start Date End Date Patricia Davalos MD PCP - General 02/27/10 12/17/18 [address] [place] [address] documented as of this encounter
--- OUTSIDE RECORDS SUMMARY | 2021-10-23 00:17 | XMS_ITS | Encounter Summary ---
:1945 Author Organization [facility] Address [address] [place] [address] Care Team Providers Name Role Phone Patricia Davalos MD Primary Care Provider Encounter Details Date Type Department Care Team Description 05/30/2020 Lab Requisition [facility] Horacio Alexander ntact with and Pathology & MD Lorenza (suspected) exposure Laboratory Medicine [address] to other viral - [place], [place] communicable [address] [place] [address] diseases [place], [place] [phone] (Wo rk) [address] [phone] Social History Tobacco Use Types Packs/Day Years Used Date Never Assessed Sex Assigned at Date Recorded Not on file documented as of this encounter Discharge Disposition Disposition Code Departure Means Destination Home or Self Care documented in this encounter Plan of Treatment Not on filedocumented as of this encounter Procedures Procedure Name Priority Date/Time Associated Diagnosis Comme nts COVID-19 TEST [facility] Today 05/30/2020 12:00 Contact with and LAB PCR EST (suspected) exposure to other viral communicable diseases COVID-19 TESTING Today 05/30/2020 12:00 Contact with and Res ults for this EST (suspected) exposure procedu re are in to other viral the results communicable diseases sectio n. documented in this encounter Results COVID-19 TEST [facility] PCR (05/30/2020 12:00 EST) Specimen Swab - Entire nasopharynx (body structur e) Performing Organization Address City/State/ZIP Code Phon e Number [facility] [address] [place] [address] SERVICES COVID-19 TESTING (05/30/2020 12:00 EST) COVID-19 rt-PCR Negative Negative [facility] Result Comment: [facility] This test has not been FDA c leared or approved. This test has been authorized by FDA under an EUA for use by authorized laboratories. This test has been authorized only for detection of nucleic acid fro SERVICES m 2019-nCoV, not for any oth er viruses or pathogens. This test is only authorized for the duration of the declaration that circumstances exist justifying the authorization of emergency use of in vitro d iagnostic tests for detectio n and/or diagnosis of 2019-nCoV under section 564(b)(1) of Act, 21 U.S.C ?? 360bbb-3(b) (1), unless the authorization is terminated or revoked sooner. Negative results do not prec lude 2019-nCoV infection and should not be used as the sole basis for treatment or other patient management decisions. Negative results must be combined with clinical observa tions, patient history, and epidemiological informatio n. Testing was performed using the therese SARS-CoV-2 assay ([employer] on the Therese 6800 System Performing Lab Therese [address] [facility] Lab [facility] SERVICES Specimen Swab - Entire nasopharynx (body structur e) Performing Organization Address City/State/ZIP Code Phon e Number [facility] [address] [place] [address] SERVICES documented in this encounter Visit Diagnoses Diagnosis Contact with and (suspected) exposure to other viral communicable diseases documented in this encounter Care Teams Network Mgr Relationship Specialty Start Date End Date Patricia Davalos MD PCP - General 09/25/[address] [place] [address] [address] [place], [place] [id number] documented as of this encounter
--- OUTSIDE RECORDS SUMMARY | 2021-10-23 00:17 | XMS_ITS | Clinical Summary ---
:1945 Author Organization [facility] Address [address] [place] [address] Care Team Providers Name Role Phone Patricia Davalos MD Primary Care Provider Social History Tobacco Use Types Packs/Day Years Used Date Never Assessed Sex Assigned at Date Recorded Not on file Plan of Treatment Health Maintenance Due Date Last Done Comments Fall Risk Screening 11/19/2011 Insurance Payer Benefit Plan Subscriber ID Effective Phone Address Typ e / Group Dates [facility] [id number] 2019-Pres [phone] [address] [facility] MEDICARE ent [phone] [place] [address] Care Teams Chemotherapist Relationship Specialty Start Date End Date Patricia Davalos MD PCP - General 09/25/[address] [place] [address] [address] [place], [place] [id number]
--- OUTSIDE RECORDS SUMMARY | 2021-10-23 00:18 | XMS_ITS | Encounter Summary ---
:1945 Author Organization [facility] Address [address] [place] [address] Care Team Providers Name Role Phone Patricia Davalos MD Primary Care Provider Encounter Details Date Type Department Care Team Description 05/09/2020 Lab Requisition [facility] Horacio Alexander ntact with and Pathology & MD Lorenza (suspected) exposure Laboratory Medicine [address] to other viral - [place], [place] communicable [address] [place] [address] diseases [place], [place] [phone] (Wo rk) [address] [phone] Social History Tobacco Use Types Packs/Day Years Used Date Never Assessed Sex Assigned at Date Recorded Not on file documented as of this encounter Discharge Disposition Disposition Code Departure Means Destination Home or Self Care documented in this encounter Plan of Treatment Not on filedocumented as of this encounter Procedures Procedure Name Priority Date/Time Associated Diagnosis Comme nts COVID-19 TEST [facility] Today 05/09/2020 5:00 Contact with and LAB PCR EST (suspected) exposure to other viral communicable diseases COVID-19 TESTING Today 05/09/2020 5:00 Contact with and Resu lts for this EST (suspected) exposure procedu re are in to other viral the results communicable diseases sectio n. documented in this encounter Results [facility] TEST [facility] PCR (05/09/2020 5:00 EST) Specimen Swab - Nasal (qualifier value) Performing Organization Address City/State/ZIP Code Phon e Number [facility] [address] [place] [address] SERVICES COVID-19 TESTING (05/09/2020 5:00 EST) COVID-19 rt-PCR Negative Negative [facility] Result Comment: [facility] This test was developed and its performance characteristics determined by [facility]. It has not been cleared or approved by the US Food and Drug Administration. FDA does not require this test to go through SERVICES premarket FDA review. This t est is used for clinical purposes. It should not be regarded as investigational or for research. This laboratory is certified under the Clinical Laboratory Improvement Amendm ents (CLIA) as qualified to perform high complexity clinical laboratory testing. This test is based on the CD C COVID-19 Emergency Use Authorization (EUA) assay, with minor modification as defined by the FDA Performed on the [employer] Pro RT-PCR System. Negative results do not prec lude 2019-nCoV infection and should not be used as the sole basis for treatment or other patient management decisions. Negative results must be combined with clinical observa tions, patient history, and epidemiological informatio n. Performing Lab [facility] Lab [facility] SERVICES Specimen Swab - Nasal (qualifier value) Performing Organization Address City/State/ZIP Code Phon e Number [facility] [address] [place] [address] SERVICES documented in this encounter Visit Diagnoses Diagnosis Contact with and (suspected) exposure to other viral communicable diseases documented in this encounter Care Teams Mold Checker Relationship Specialty Start Date End Date Patricia Davalos MD PCP - General 09/25/[address] [place] [address] [address] [place], [place] [address] documented as of this encounter
--- OUTSIDE RECORDS SUMMARY | 2021-10-23 00:18 | XMS_ITS | Encounter Summary ---
:1945 Author Organization [facility] Address [address] [place] [address] Care Team Providers Name Role Phone Patricia Davalos MD Primary Care Provider Encounter Details Date Type Department Care Team Description 05/24/2020 Lab Requisition [facility] Horacio Alexander ntact with and Pathology & MD Lorenza (suspected) exposure Laboratory Medicine [address] to other viral - [place], [place] communicable [address] [place] [address] diseases [place], [place] [phone] (Wo rk) [address] [phone] Social History Tobacco Use Types Packs/Day Years Used Date Never Assessed Sex Assigned at Date Recorded Not on file documented as of this encounter Discharge Disposition Disposition Code Departure Means Destination Home or Self Care documented in this encounter Plan of Treatment Not on filedocumented as of this encounter Procedures Procedure Name Priority Date/Time Associated Diagnosis Comme nts COVID-19 TEST [facility] Today 05/23/2020 5:33 Contact with and LAB PCR EST (suspected) exposure to other viral communicable diseases COVID-19 TESTING Today 05/23/2020 5:33 Contact with and Resu lts for this EST (suspected) exposure procedu re are in to other viral the results communicable diseases sectio n. documented in this encounter Results [facility] (05/23/2020 5:33 EST) Specimen Swab - Nasal (qualifier value) Performing Organization Address City/State/ZIP Code Phon e Number [facility] [address] [place] [address] SERVICES COVID-19 TESTING (05/23/2020 5:33 EST) COVID-19 rt-PCR Negative Negative [facility] Result Comment: [facility] This [...] tions, patient history, and epidemiological informatio n. This test was developed and its performance characteristics determined by [facility]. It has not been cleared or approved by the US Food and Drug Administration. FDA does not require this test to go through premarket FDA review. This t est is [...] defined by the FDA Performed on the [employer] Flex RT-PCR System. Performing Lab [facility] Lab [facility] SERVICES Specimen Swab - Nasal (qualifier value) Performing Organization Address City/State/ZIP Code Phon e Number [facility] [address] [place] [address] SERVICES documented in this encounter Visit Diagnoses Diagnosis Contact with and (suspected) exposure to other viral communicable diseases documented in this encounter Care Teams Claims Director Relationship Specialty Start Date End Date Patricia Davalos MD PCP - General 09/25/[address] [place] [address] [address] [place], [place] [phone] documented as of this encounter
--- OUTSIDE RECORDS SUMMARY | 2021-10-23 00:18 | XMS_ITS | Encounter Summary ---
:1945 Author Organization [facility] Address [address] [place] [address] Care Team Providers Name Role Phone Patricia Davalos MD Primary Care Provider Encounter Details Date Type Department Care Team Description 11/10/2018 Hospital Encounter [facility]- [place] Unknown, Provider, [facility] 0 [facility] [phone] [place] [address] (Work) [phone] Social History Tobacco Use Types Packs/Day Years Used Date Never Assessed Sex Assigned at Date Recorded Not on file documented as of this encounter Discharge Disposition Disposition Code Departure Means Destination Home or Self Skilled Nursing documented in this encounter Plan of Treatment Not on filedocumented as of this encounter Visit Diagnoses Not on filedocumented in this encounter Care Teams Extractor And Wringer Operator Relationship Specialty Start Date End Date Patricia Davalos MD PCP - General 09/25/[address] [place] [address] [address] [place], [place] [address] documented as of this encounter
--- OUTSIDE RECORDS SUMMARY | 2021-10-23 00:18 | XMS_ITS | Encounter Summary ---
:1945 Author Organization [facility] Address [address] [place] [address] Care Team Providers Name Role Phone Patricia Davalos MD Primary Care Provider Encounter Details Date Type Department Care Team Description 12/31/2013 Hospital Encounter [facility]- [place] Unknown, Provider, [facility] 0 [facility] [phone] [place] [address] (Work) [phone] Social History Tobacco Use Types Packs/Day Years Used Date Never Assessed Sex Assigned at Date Recorded Not on file documented as of this encounter Discharge Disposition Disposition Code Departure Means Destination Home or Self Half-Way documented in this encounter Plan of Treatment Not on filedocumented as of this encounter Visit Diagnoses Not on filedocumented in this encounter Care Teams Warehouse Team Member Relationship Specialty Start Date End Date Patricia Davalos MD PCP - General 09/25/[address] [place] [address] [address] [place], [place] [address] documented as of this encounter
--- OUTSIDE RECORDS SUMMARY | 2021-10-23 00:18 | XMS_ITS | Encounter Summary ---
:1945 Author Organization [facility] Address [address] [place] [address] Care Team Providers Name Role Phone Patricia Davalos MD Primary Care Provider Encounter Details Date Type Department Care Team Description 05/13/2017 Hospital Encounter [facility]- [place] Unknown, Provider, [facility] 0 [facility] [phone] [place] [address] (Work) [phone] Social History Tobacco Use Types Packs/Day Years Used Date Never Assessed Sex Assigned at Date Recorded Not on file documented as of this encounter Discharge Disposition Disposition Code Departure Means Destination Home or Self [facility] documented in this encounter Plan of Treatment Not on filedocumented as of this encounter Visit Diagnoses Not on filedocumented in this encounter Care Teams Supervisor Winter Relationship Specialty Start Date End Date Patricia Davalos MD PCP - General 09/25/[address] [place] [address] [address] [place], [place] [address] documented as of this encounter
--- OUTSIDE RECORDS SUMMARY | 2021-10-23 00:18 | XMS_ITS | Encounter Summary ---
:1945 Author Organization [facility] Address [address] [place] [address] Care Team Providers Name Role Phone Patricia Davalos MD Primary Care Provider Encounter Details Date Type Department Care Team Description 05/13/2017 Results Only [facility] Claude Madrid, DO [address] [facility] [address] [place] [address] (Wo rk) Social History Tobacco Use Types Packs/Day Years Used Date Never Assessed Sex Assigned at Date Recorded Not on file documented as of this encounter Plan of Treatment Not on filedocumented as of this encounter Procedures Procedure Name Priority Date/Time Associated Diagnosis Comme [facility] SURGICAL PATHOLOGY Routine 05/13/2017 16:16 Resul ts for this EST procedure are i n the results section. documented in this encounter Results SURGICAL PATHOLOGY (05/13/2017 16:16 EST) Pathology SURGICAL PATHOLOGY REPORT [facility] Report: Reports generated via electronic interface conta in original data; [facility] however they are lacking the format of the original re port. SERVICES Caution should be taken when reading/interpreting unfo rmatted reports. Name: ? ASHLIE ESTES ? Accession #: ? [id number] ? : ? 1945 (Age: 8 0) ??F ? Collect Date: ? 05/13/2017 ? Location: ? [facility] ? Receive Date: ? 8 ? Provider: CLAUDE MADRID DO Copy to: DAVEY Owusu [facility]- ? Final Pathologic Diagnosis: DUODENUM, BULB, BIOPSY: - Polypoid peptic duodenitis with reactive changes. Se e comment. - Negative for dysplasia or malignancy. Comment: Glass Carrier slides from the prior duodenal biopsy ( [id number] part A) were reviewed in correlation with the current material. Glass Carrier slides of the current case were reviewed at the intradepartmental co nsultation conference. Dr. Jay 05/15/2017 8:16 AM Document reviewed and electronically signed by: BARBARA BAI MD Report ??Date: 05/15/2017 14:40 By the signature above, the attending physician certif ies that he/she has personally conducted a gross and/or microscopic examin ation of the described specimens and rendered or confirmed the above diagnosi s. Specimen(s) Received: Duodenal bulb bx Clinical History: H/O Cueva's esophagus; duodenal polyp Gross Description: ? Received in formalin labelled with proper patient identification (initials P, S) and bx duodenum bulb is an aggregate of pink-delgado soft tissue (1.3 x 0.7 x 0.2 cm). Submitted in toto in 1. HARESH Weston (ASCP) 05/13/2017 4:28 PM End of Report Specimen Performing Organization Address City/State/ZIP Code Phon e Number [facility] [address] [place] [address] SERVICES documented in this encounter Visit Diagnoses Not on filedocumented in this encounter Care Teams Insurance Adjustor Relationship Specialty Start Date End Date Patricia Davalos MD PCP - General 09/25/[address] [place] [address] [address] [place], [place] [phone] documented as of this encounter
--- OUTSIDE RECORDS SUMMARY | 2021-10-23 00:18 | XMS_ITS | Encounter Summary ---
:1945 Author Organization [facility] Address [address] [place] [address] Care Team Providers Name Role Phone Unavailable Primary Care Provider Unavailable Encounter Details Date Type Department Care Team Description 04/09/2007 Results Only [facility] - Patricia Calle MD [address] [place], [place] [id number] [place] [id number] [phone] Social History Tobacco Use Types Packs/Day Years Used Date Never Assessed Sex Assigned at Date Recorded Not on file documented as of this encounter Plan of Treatment Not on filedocumented as of this encounter Procedures Procedure Name Priority Date/Time Associated Diagnosis Comme nts CYTOPATHOLOGY Routine 04/09/2007 0:00 EST Results for this procedure are i n the results section . documented in this encounter Results CYTOPATHOLOGY (04/09/2007 0:00 EST) Pathology Report: CYTOPATHOLOGY REPORT [facility] Reports generated via electronic interface contain iwona ginal data; however they are lacking the format of the original re port. Caution should be taken when reading/interpreting unfo rmatted reports. Name: ? ASHLIE ESTES ? Accession #: ? [id number] : ? 1945 (Age: 61) ??F ?Collect Date: ? 06/2007 Location: ? [facility] ? Receive Date : ? 04/13/2007 Provider: ?PATRICIA SAAB MD Copy to: ? Specimen/Source: ? ThinPrep Pap Test, Cervix/Endocervix, processed on [employer] ThinPrep Imaging System, with manual evaluation Last Menstrual Period: ? 5 Menstrual/ Status: ? Post Menopausal Other: ? HPVA - HPV testing requested if ASC-US on the current ThinPrep Pap test. ? SPECIMEN ADEQUACY ? Satisfactory for Evaluation - transformation zone component present GENERAL CATEGORIZATION ? Negative for Intraepithelial Lesion or Malignan cy ? Document reviewed and electronically signed by: ? ROSALIO Gray(ASCP) ? Report Date: ??04/14/2007 10:20 End of Report Specimen Performing Organization Address City/State/ZIP Code Phon e Number [facility] [address] [place] [address] SERVICES [facility] [address] [place] [address] documented in this encounter Visit Diagnoses Not on filedocumented in this encounter
--- OUTSIDE RECORDS SUMMARY | 2021-10-23 00:18 | XMS_ITS | Encounter Summary ---
:1945 Author Organization [facility] Address [address] [place] [address] Care Team Providers Name Role Phone Patricia Saab MD Primary Care Provider Encounter Details Date Type Department Care Team Description 09/19/2014 Results Only [facility] Claude Madrid, DO [address] [facility] ASHKAN MELENDEZ [address] [place] [address] (Wo rk) Social History Tobacco Use Types Packs/Day Years Used Date Never Assessed Sex Assigned at Date Recorded Not on file documented as of this encounter Plan of Treatment Not on filedocumented as of this encounter Procedures Procedure Name Priority Date/Time Associated Diagnosis Comme [facility] SURGICAL PATHOLOGY Routine 09/19/2014 18:25 Resul ts for this EDT procedure are i n the results section. documented in this encounter Results SURGICAL PATHOLOGY (09/19/2014 18:25 EDT) Pathology Report: SURGICAL PATHOLOGY REPORT [facility] Reports generated via electronic interface contain iwona ginal data; LABORATORY however they are lacking the format of the original re port. SERVICES Caution should be taken when reading/interpreting unfo rmatted reports. Name: ? ASHLIE ESTES ? Accession #: ? [id number] ? : ? 1945 (Age: [age]) ??F ? Collect Date: ? 09/19/2014 ? Location: ? [facility] ? Receive Date: ? 09/20/19 15 ? Provider: CLAUDE MADRID DO Copy to: PATRICIA SAAB MD ? Final Pathologic Diagnosis: ESOPHAGUS, DISTAL, BIOPSY: - ??Cardia-oxyntic mucosa with foveolar hyperplasia an d focal multi-layered epithelium. Negative for intestinal metaplasia or dysplasia. See c omment. - ??Adjoining squamous mucosa with features of reflux esophagitis. Comment: Multi-layered epithelium has been shown in association with adjacent intestinal metaplasia and may warrant follow up surveillance as B arrett's esophagus. No definitive intestinal metaplasia is present in this bi opsy. Document reviewed and electronically signed by: TERRY COFFEY MD Report ??Date: 09/21/2014 17:07 By the signature above, the attending physician certif ies that he/she has personally conducted a gross and/or microscopic examin ation of the described specimens and rendered or confirmed the above diagnosi s. Specimen(s) Received: Distal esophagus Clinical History: H/O Cueva's esophagus, ? dysplasia Gross Description: ? Received in formalin labelled with proper patient identification (initials P, S) and distal esophagus are five pink-delgado t issues (0.2 x 0.2 x 0.2 cm to 0.3 x 0.2 x 0.2 cm). Entirely submitted in blocks 1-2. Marleny Mayes 09/20/2014 08:52 AM End of Report Specimen Performing Organization Address City/State/ZIP Code Phon e Number [facility] [address] [place] [address] SERVICES documented in this encounter Visit Diagnoses Not on filedocumented in this encounter Care Teams Document Control Manager Relationship Specialty Start Date End Date Patricia Saab MD PCP - General 09/25/[address] [place] [address] [address] [place], [place] [phone] documented as of this encounter
--- OUTSIDE RECORDS SUMMARY | 2021-10-23 00:18 | XMS_ITS | Encounter Summary ---
:1945 Author Organization [facility] Address [address] [place] [address] Care Team Providers Name Role Phone Patricia Davalos MD Primary Care Provider Encounter Details Date Type Department Care Team Description 03/28/2020 Lab Requisition [facility] Horacio Alexander ntact with and Pathology & MD Lorenza (suspected) exposure Laboratory Medicine [address] to other viral - [place], [place] communicable [address] [facility] [address] diseases [place], [place] [phone] (Wo rk) [id number] [phone] Social History Tobacco Use Types Packs/Day Years Used Date Never Assessed Sex Assigned at Date Recorded Not on file documented as of this encounter Discharge Disposition Disposition Code Departure Means Destination Home or Self Care documented in this encounter Plan of Treatment Not on filedocumented as of this encounter Procedures Procedure Name Priority Date/Time Associated Diagnosis Comme nts DO NOT ORDER Today 03/28/2020 8:30 Contact with and Results for this STANDALONE - BROAD EST (suspected) exposure p rocedure are in COVID TEST to other viral the results communicable diseases sectio n. COVID-19 TESTING Today 03/28/2020 8:30 Contact with and Resu lts for this EST (suspected) exposure procedu re are in to other viral the results communicable diseases sectio n. documented in this encounter Results DO NOT ORDER STANDALONE - BROAD COVID TEST (03/28/2020 8:30 EST) COVID-19 rt-PCR NEGATIVE Negative [facility] Result Comment: LABORATORY 2019-novel Coronavirus (2019 -nCoV) not detected by the qRT-PCR assay. Consider testing for other respiratory viruses or re-collecting for 2019-nCoV testing. Note: Optimum timing for peak viral levels du ring infections caused by 20 19-nCoV have not been determined. Collection of multiple specimens from the same patient may be necessary to detect the virus. Limitations Positive results are indicat nick of active infection with SARS-CoV-2 but do not rule out bacterial infection or co-infection with other viruses. The agent detected may not be the definite cause of diseas e. In addition, detection of viral RNA may not indicate the presence of infectious virus or that SARS-CoV-2 is the causative agent for clinical symptoms. Negative results do not prec lude SARS-CoV-2 infection and should not be used as the sole basis for patient management decisions. Negative results must be combined with clinical observations, patient his tory, and epidemiological in formation. False negative results may also occur if amplification inhibitors are present in the specimen or if inadequate numbers of organisms are present in the specimen. Op timum specimen types and raman ing for peak viral levels during infections caused by SARS-CoV-2 have not been fully determined. Collection of multiple specimens (types and time points) from the same patient may be necessary to detect the virus. The test was validated for u se with upper respiratory specimens obtained via nasopharyngeal or oropharyngeal swabs in VTM, UTM, M4, M5, M6, saline, and MTM media. The performance of this test has not be en established for other spe cimens. Specimens collected using other FDA recommended Specimen Collection Materials listed in the FDA COVID-19 [employer] communication (July 01, 2019) are pr ocessed with the caveat that they were not all validated for use with this test and the result must be interpreted in this context. Furthermore, a false negative results may occur if a specimen is improperly collected, transported or handled. If the virus mutates in the RT-PCR target region, SARS-CoV-2 may not be detected or may be detected less predictably. Inhibitors or other types of interference may produce a false negative result. An interference study evaluating the effect of common cold medications was not performed. This test is not FDA-cleared but its performance characteristics were established by our CLIA-certified, CAP-accredited, high complexity laboratory in accordance with CLIA regulations, College of [employer] an Pathologists (CAP) guidel nupur (Jun 24, 2019), and FDA guidance (Jun 05, 2019). This test is only for use un jonnie the Food and Drug Administration's Emergency Use Authorization. Specimen Swab - Nasal (qualifier value) Performing Organization Address City/State/ZIP Code Phon e Number [facility] [place], [place] COVID-19 TESTING (03/28/2020 8:30 EST) COVID-19 rt-PCR NEGATIVE Negative [facility] Result Comment: LABORATORY 2019-novel Coronavirus (2019 -nCoV) not detected by the qRT-PCR assay. Consider testing for other respiratory viruses or re-collecting for 2019-nCoV testing. Note: Optimum timing for peak viral levels du ring infections caused by 20 -nCoV have not been determined. Collection of multiple specimens from the same patient may be necessary to detect the virus. Limitations Positive results are indicat nick of active infection with SARS-CoV-2 but do not rule out bacterial infection or co-infection with other viruses. The agent detected may not be the definite cause of diseas e. In addition, detection of viral RNA may not indicate the presence of infectious virus or that SARS-CoV-2 is the causative agent for clinical symptoms. Negative results do not prec lude SARS-CoV-2 infection and should not be used as the sole basis for patient management decisions. Negative results must be combined with clinical observations, patient his tory, and epidemiological in formation. False negative results may also occur if amplification inhibitors are present in the specimen or if inadequate numbers of organisms are present in the specimen. Op timum specimen types and raman ing for peak viral levels during infections caused by SARS-CoV-2 have not been fully determined. Collection of multiple specimens (types and time points) from the same patient may be necessary to detect the virus. The test was validated for u se with upper respiratory specimens obtained via nasopharyngeal or oropharyngeal swabs in VTM, UTM, M4, M5, M6, saline, and MTM media. The performance of this test has not be en established for other spe cimens. Specimens collected using other FDA recommended Specimen Collection Materials listed in the FDA COVID-19 [employer] communication (July 01, 2019) are pr ocessed with the caveat that they were not all validated for use with this test and the result must be interpreted in this context. Furthermore, a false negative results may occur if a specimen is improperly collected, transported or handled. If the virus mutates in the RT-PCR target region, SARS-CoV-2 may not be detected or may be detected less predictably. Inhibitors or other types of interference may produce a false negative result. An interference study evaluating the effect of common cold medications was not performed. This test is not FDA-cleared but its performance characteristics were established by our CLIA-certified, CAP-accredited, high complexity laboratory in accordance with CLIA regulations, College of [employer] an Pathologists (CAP) guidel nupur (Jun 24, 2019), and FDA guidance (Jun 05, 2019). This test is only for use un jonnie the Food and Drug Administration's Emergency Use Authorization. Performing Lab [facility] LABORATORY SERVICES Specimen Swab - Nasal (qualifier value) Performing Organization Address City/State/ZIP Code Phon e Number [facility] [address] [place] [address] SERVICES [facility] [place], [place] documented in this encounter Visit Diagnoses Diagnosis Contact with and (suspected) exposure to other viral communicable diseases documented in this encounter Care Teams Member Certification Manager Relationship Specialty Start Date End Date Patricia Davalos MD PCP - General 09/25/[address] [place] [address] [place] [address] documented as of this encounter
--- OUTSIDE RECORDS SUMMARY | 2021-10-23 00:18 | XMS_ITS | Encounter Summary ---
:1945 Author Organization [facility] Address [address] [place] [address] Care Team Providers Name Role Phone Patricia Davalos MD Primary Care Provider Encounter Details Date Type Department Care Team Description 03/14/2020 Lab Requisition [facility] Horacio Alexander ntact with and Pathology & MD Lorenza (suspected) exposure Laboratory Medicine [address] to other viral - [place], [place] communicable [address] [place] [address] diseases [place], [place] [phone] (Wo rk) [id number] [phone] Social History Tobacco Use Types Packs/Day Years Used Date Never Assessed Sex Assigned at Date Recorded Not on file documented as of this encounter Discharge Disposition Disposition Code Departure Means Destination Home or Self Care documented in this encounter Plan of Treatment Not on filedocumented as of this encounter Procedures Procedure Name Priority Date/Time Associated Diagnosis Comme nts [facility] Today 03/14/2020 8:15 Contact with and LAB PCR EST (suspected) exposure to other viral communicable diseases COVID-19 TESTING Today 03/14/2020 8:15 Contact with and Resu lts for this EST (suspected) exposure procedu re are in to other viral the results communicable diseases sectio n. documented in this encounter Results COVID-19 TEST [facility] LAB PCR (03/14/2020 8:15 EST) Specimen Swab - Nasal (qualifier value) Performing Organization Address City/State/ZIP Code Phon e Number [facility] [address] [place] [address] SERVICES COVID-19 TESTING (03/14/2020 8:15 EST) COVID-19 rt-PCR Negative Negative [facility] Result Comment: CENTER LABORATORY This test [...] tions, patient history, and epidemiological informatio n. Performed on the [employer] Fusion instrument Performing Lab [place] [facility] Lab [facility] SERVICES Specimen Swab - Nasal (qualifier value) Performing Organization Address City/State/ZIP Code Phon e Number [facility] [address] [place] [address] SERVICES documented in this encounter Visit Diagnoses Diagnosis Contact with and (suspected) exposure to other viral communicable diseases documented in this encounter Care Teams Medical Technologist Chief Relationship Specialty Start Date End Date Patricia Davalos MD PCP - General 09/25/[address] [place] [address] [address] [place], [place] [phone] documented as of this encounter
--- OUTSIDE RECORDS SUMMARY | 2021-10-23 00:18 | XMS_ITS | Encounter Summary ---
:1945 Author Organization [facility] Address [address] [place] [address] Care Team Providers Name Role Phone Unavailable Primary Care Provider Unavailable Encounter Details Date Type Department Care Team Description 09/20/2011 Results Only [facility] Claude Madrid , Laboratory Services - [address] ASHKAN MELENDEZ [address] [place] [address] [place], [place] [id number] [phone] Social History Tobacco Use Types Packs/Day Years Used Date Never Assessed Sex Assigned at Date Recorded Not on file documented as of this encounter Plan of Treatment Not on filedocumented as of this encounter Procedures Procedure Name Priority Date/Time Associated Diagnosis Comme [facility] SURGICAL PATHOLOGY Routine 09/20/2011 0:00 EDT Re sults for this procedure are i n the results section. documented in this encounter Results SURGICAL PATHOLOGY (09/20/2011 0:00 EDT) Pathology Report: SURGICAL PATHOLOGY REPORT [facility] Reports generated via electronic interface contain iwona ginal data; LAB however they are lacking the format of the original re port. Caution should be taken when reading/interpreting unfo rmatted reports. Name: ? ASHLIE ESTES ? Accession #: ? [id number] ? : ? 1945 (Age: 65) ??F ? Collect Date: ? 09/20/2011 ? Location: ? [facility] ? Receive Date: ? 012 ? Provider: CLAUDE MADRID DO Copy to: MARY JO SAAB MD ? Final Pathologic Diagnosis: A. ?Stomach, antrum, biopsies: 1. ?Antral-type mucosa with features of reactive gastropathy. ??See comment. 2. ? No Helicobacter pylori-like microorgani sms identified on H&E-stained sections. ?? B. ?Esophagus, distal, biopsies: 1. ?Squamous mu cosa with increased intraepithelial eosinophils (maximum count of 7 eosinophils per high power fi eld), suggestive of reflux changes. ?? 2. ? Columnar mucosa with no specific pathologic f eatures. 3. ? Negative for intestinal metaplasia. ?? Comment: ? Specimen (A) shows an tral-type mucosa with reactive foveolar hyperplasia, negligible inflammation, and no Helicobacter pylori. ? ?These changes suggest chemical type injury such as can be seen with non-steroidal anti-inflammatory drugs, alcohol, and bile reflux. ?? Document reviewed and electronically signed by: IAN MCKAY MD Report ??Date: 09/24/2011 15:20 By the signature above, the attending physician certif ies that he/she has personally conducted a gross and/or microscopic examin ation of the described specimens and rendered or confirmed the above diagnosi s. Specimen(s) Received: A. ?Gastric antrum (#1) B. ? 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 Received in formalin labelled Ashlie Estes and gastric antrum are two pink-delgado irregular soft tissues, 0.3 x 0.2 x 0.2 cm and 0.3 x 0.3 x 0.3 cm, submitted in toto in (A). Received in formalin donnie d Estes, Ashlie and distal esophagus are five delgado-white irregular soft tis sues ranging from 0.1 x 0.1 x 0.1 cm to 0.3 x 0.3 x 0.2 cm, submitted in toto in (B1) and (B2). ??(Martha john)/[facility] End of Report Specimen Performing Organization Address City/State/ZIP Code Phon e Number [facility] [address] [place] [address] SERVICES [facility] [address] [place] [phone] documented in this encounter Visit Diagnoses Not on filedocumented in this encounter
--- OUTSIDE RECORDS SUMMARY | 2021-10-23 00:18 | XMS_ITS | Encounter Summary ---
:1945 Author Organization [facility] Address [address] [place] [address] Care Team Providers Name Role Phone Unavailable Primary Care Provider Unavailable Encounter Details Date Type Department Care Team Description 04/28/2009 Orders Only [facility] Felice Davalos MD Laboratory Services - [address] [facility] [place] [address] [place] [address] [place] [address] [phone] Social History Tobacco Use Types Packs/Day Years Used Date Never Assessed Sex Assigned at Date Recorded Not on file documented as of this encounter Plan of Treatment Not on filedocumented as of this encounter Procedures Procedure Name Priority Date/Time Associated Comments Diagnosis HPV DETECTION, HIGH Routine 04/28/2009 8:44 Resul ts for this RISK TYPES EST procedure are i n the results section. CYTOPATHOLOGY Routine 04/28/2009 0:00 Results for this EST procedure are i n the results section. documented in this encounter Results HUMAN PAPILLOMA VIRUS DNA TEST (04/28/2009 8:44 EST) Specimen Description Cervix, ThinPrep [facility] vial Result Negative for HPV [facility] types 16, 18, 31, 33, 35, 39, 45, 51, 52, 56, 58, 59, and 68. Report Status Final [facility] 05/09/2009 Specimen Performing Organization Address City/State/ZIP Code Phon e Number [facility] [address] [place] [address] SERVICES [facility] [address] [place] [address] CYTOPATHOLOGY (04/28/2009 0:00 EST) Pathology Report: CYTOPATHOLOGY REPORT ? [facility] ? LAB Reports generated via electr onic interface contain original data; ? however they are lacking the format of the original report. ? Caution should be taken when reading/interpreting unformatted reports. ? Name: ? ASHLIE ESTES ? Accession #: ? [id number] ? : ? 1945 (Age: 63) ??F ?Collect Date: ? 04/28/2009 ? Location: ? [facility] ? Receive Date: ? 05/01/2009 ? Provider: ?MARY JO LUBIN MAN MD ? Copy to: ? Specimen/Source: ? Pap Test, Cervix/Endocervix, ThinPrep Imaging System ? with manual evaluation ? Last Menstrual Period: ? Menstrual/ Status: ? Post Menopausal ? 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 Treatment History: ? Cone biopsy: Conization ? Other: ? HPVDX - HPV testing requeste d regardless of diagnosis on current ThinPrep Pap ?? test. ? SPECIMEN ADEQUACY ? Satisfactory for Eval uation ? - assessment of transformati on zone component not applicable ( e.g. atrophy, ? vaginal sample, hysterectomy ) ? GENERAL CATEGORIZATION ? Negative for Intraepi thelial Lesion or Malignancy ? Document reviewed and electr onically signed by: ? Cassi Ordoñezlogg, CT(ASCP) ? Report Date: ??01/26/ 2010 14:16 ? End of Report ? Specimen Performing Organization Address City/State/ZIP Code Phon e Number [facility] [address] [place] [address] SERVICES [facility] [address] [place] [address] documented in this encounter Visit Diagnoses Not on filedocumented in this encounter
--- OUTSIDE RECORDS SUMMARY | 2021-10-23 00:18 | XMS_ITS | Encounter Summary ---
:1945 Author Organization [facility] Address [address] [place] [address] Care Team Providers Name Role Phone Patricia Davalos MD Primary Care Provider Encounter Details Date Type Department Care Team Description 04/04/2020 Lab Requisition [facility] Horacio Alexander ntact with and Pathology & MD Lorenza (suspected) exposure Laboratory Medicine [address] to other viral - [place], [place] communicable [address] [facility] [address] diseases [place], [place] [phone] (Wo rk) [id number] [phone] Social History Tobacco Use Types Packs/Day Years Used Date Never Assessed Sex Assigned at Date Recorded Not on file documented as of this encounter Discharge Disposition Disposition Code Departure Means Destination Home or Self Care documented in this encounter Plan of Treatment Not on filedocumented as of this encounter Procedures Procedure Name Priority Date/Time Associated Diagnosis Comme nts DO NOT ORDER Today 04/04/2020 8:40 Contact with and Results for this STANDALONE - BROAD EST (suspected) exposure p rocedure are in COVID TEST to other viral the results communicable diseases sectio n. COVID-19 TESTING Today 04/04/2020 8:40 Contact with and Resu lts for this EST (suspected) exposure procedu re are in to other viral the results communicable diseases sectio n. documented in this encounter Results DO NOT ORDER STANDALONE - BROAD COVID TEST (04/04/2020 8:40 EST) COVID-19 rt-PCR NEGATIVE Negative [facility] [...] Organization Address City/State/ZIP Code Phon e Number [facility] [place], [place] COVID-19 TESTING (04/04/2020 8:40 EST) COVID-19 rt-PCR NEGATIVE Negative [facility] Result Comment: LABORATORY 2019-novel Coronavirus (2019 -nCoV) [...] Administration's Emergency Use Authorization. Performing Lab [facility] LABORATORY SERVICES Specimen Swab - Nasal (qualifier value) Performing Organization Address City/State/ZIP Code Phon e Number [facility] [address] [place] [address] [facility] [place], [place] documented in this encounter Visit Diagnoses Diagnosis Contact with and (suspected) exposure to other viral communicable diseases documented in this encounter Care Teams Envelope Maker Relationship Specialty Start Date End Date Patricia Davalos MD PCP - General 09/25/[address] [place] [address] [place] [address] documented as of this encounter
--- OUTSIDE RECORDS SUMMARY | 2021-10-23 00:18 | XMS_ITS | Encounter Summary ---
:1945 Author Organization [facility] Address [address] [place] [address] Care Team Providers Name Role Phone Patricia Davalos MD Primary Care Provider Encounter Details Date Type Department Care Team Description 05/02/2020 Lab Requisition [facility] Horacio Alexander ntact with and Pathology & MD Lorenza (suspected) exposure Laboratory Medicine [address] to other viral - [place], [place] communicable [address] [place] [address] diseases [place], [place] [phone] (Wo rk) [id number] [phone] Social History Tobacco Use Types Packs/Day Years Used Date Never Assessed Sex Assigned at Date Recorded Not on file documented as of this encounter Discharge Disposition Disposition Code Departure Means Destination Home or Self Care documented in this encounter Plan of Treatment Not on filedocumented as of this encounter Procedures Procedure Name Priority Date/Time Associated Diagnosis Comme nts COVID-19 TEST [facility] Today 05/02/2020 6:15 Contact with and LAB PCR EST (suspected) exposure to other viral communicable diseases COVID-19 TESTING Today 05/02/2020 6:15 Contact with and Resu lts for this EST (suspected) exposure procedu re are in to other viral the results communicable diseases sectio n. documented in this encounter Results COVID-19 [facility] PCR (05/02/2020 6:15 EST) Specimen Swab - Nasal (qualifier value) Performing Organization Address City/State/ZIP Code Phon e Number [facility] [address] [place] [address] SERVICES COVID-19 TESTING (05/02/2020 6:15 EST) COVID-19 rt-PCR Negative Negative [facility] MEDICAL Result Comment: CENTER LABORATORY Negative results do not prec lude 2019-nCoV infection and should not be used as the sole basis for treatment or other patient management decisions. Negative results must be combined with clinical observa SERVICES tions, patient history, and epidemiological informatio n. This test was developed and its performance characteristics determined by [facility]. It has not been cleared [...] defined by the FDA Performed on the [employer] Flex RT-PCR System. Performing Lab KRISTIN CDC [facility] Lab [facility] SERVICES Specimen Swab - Nasal (qualifier value) Performing Organization Address City/State/ZIP Code Phon e Number [facility] [address] [place] [address] SERVICES documented in this encounter Visit Diagnoses Diagnosis Contact with and (suspected) exposure to other viral communicable diseases documented in this encounter Care Teams Edge Blacker Relationship Specialty Start Date End Date Patricia Davalos MD PCP - General 09/25/[address] [place] [address] [address] [place], [place] [id number] documented as of this encounter
--- OUTSIDE RECORDS SUMMARY | 2021-10-23 00:18 | XMS_ITS | Encounter Summary ---
:1945 Author Organization [facility] Address [address] [place] [address] Care Team Providers Name Role Phone Patricia Davalos MD Primary Care Provider Encounter Details Date Type Department Care Team Description 11/06/2016 Results Only [facility] Claude Madrid, DO [address] [facility] ASHKAN MELENDEZ [address] [place] [address] (Wo rk) Social History Tobacco Use Types Packs/Day Years Used Date Never Assessed Sex Assigned at Date Recorded Not on file documented as of this encounter Plan of Treatment Not on filedocumented as of this encounter Procedures Procedure Name Priority Date/Time Associated Diagnosis Comme [facility] SURGICAL PATHOLOGY Routine 11/06/2016 9:24 EDT Re sults for this procedure are i n the results section. documented in this encounter Results SURGICAL PATHOLOGY (11/06/2016 9:24 EDT) Pathology SURGICAL PATHOLOGY REPORT [facility] MEDICAL Report: Reports generated via electronic interface conta in original data; CENTER LABORATORY however they are lacking the format of the original re port. SERVICES Caution should be taken when reading/interpreting unfo rmatted reports. Name: ? ASHLIE ESTES ? Accession #: ? [id number] ? : ? 1945 (Age: [age]) ??F ? Collect Date: ? 11/06/2016 ? Location: ? [facility] ? Receive Date: ? 7 ? Provider: CLAUDE MADRID DO Copy to: DAVEY Umer [facility]- ? Final Pathologic Diagnosis: A. 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 - See comment. B. STOMACH, ANTRUM, BIOPSY: - Gastric antral mucosa with reactive (chemical) gastr opathy. C. ESOPHAGUS, DISTAL, BIOPSY: - Gastroesophageal junction mucosa with active reflux esophagitis. - Negative for intestinal metaplasia; Negative for dys plasia. ?? Comment: Law Instructor slides of this case were reviewed at [facility] intradepartmental GI consultation conference. Deeper sections were reviewed on block (A1) and (A3). Document reviewed and electronically signed by: TANYA LI MD Report ??Date: 11/12/2016 16:03 By the signature above, the attending physician certif ies that he/she has personally conducted a gross and/or microscopic examin ation of the described specimens and rendered or confirmed the above diagnosi s. Specimen(s) Received: A. ?Duodenum bxs B. ? Antrum bxs C. ? Distal esophagus Clinical History: Hx of Cueva's esophagus Gross Description: A. ?Received in formalin labelled with proper p atient identification (initials P, S) and 1. duod enum bxs are nine white tissues (0.1 x 0.1 x 0.1 cm to 0.2 x 0.1 x 0.1 cm). Entirely submitted in A1 throu gh A3. B. ?Received in formalin labelled with proper p atient identification (initials P, S) and 2. antr um bxs is a single delgado-white tissue fragment (0.6 x 0.2 x 0.1 cm). Submitted intact in B1. C. ?Received in formalin labelled with proper p atient identification (initials P, S) and 3. dist al esophagus are three delgado-white tissues (0.3 x 0.2 x 0.2 cm, 0.4 x 0.2 x 0.1 cm and 0.5 x 0.2 x 0.1 cm). Entirely submitted in C1. Patricia Jorge 11/07/2016 10:38 AM End of Report Specimen Performing Organization Address City/State/ZIP Code Phon e Number [facility] [address] [place] [address] SERVICES documented in this encounter Visit Diagnoses Not on filedocumented in this encounter Care Teams Asphalt Engineer Relationship Specialty Start Date End Date Patricia Davalos MD PCP - General 09/25/[address] [place] [address] [address] [place], [place] [id number] documented as of this encounter
--- OUTSIDE RECORDS SUMMARY | 2021-10-23 00:18 | XMS_ITS | Encounter Summary ---
:1945 Author Organization [facility] Address [address] [place] [address] Care Team Providers Name Role Phone Patricia Saab MD Primary Care Provider Encounter Details Date Type Department Care Team Description 12/31/2013 Results Only [facility] Claude Madrid , Laboratory Services - [address] ASHKAN MELENDEZ [address] [place] [address] [place], [place] [address] [phone] Social History Tobacco Use Types Packs/Day Years Used Date Never Assessed Sex Assigned at Date Recorded Not on file documented as of this encounter Plan of Treatment Not on filedocumented as of this encounter Procedures Procedure Name Priority Date/Time Associated Diagnosis Comme [facility] SURGICAL PATHOLOGY Routine 12/31/2013 8:18 EDT Re sults for this procedure are i n the results section. documented in this encounter Results SURGICAL PATHOLOGY (12/31/2013 8:18 EDT) Pathology Report: SURGICAL PATHOLOGY REPORT DEANGELO SANCHEZ Reports generated via electronic interface contain iwona ginal data; LAB however they are lacking the format of the original re port. Caution should be taken when reading/interpreting unfo rmatted reports. Name: ? ASHLIE ESTES ? Accession #: ? [id number] ? : ? 1945 (Age: 68) ??F ? Collect Date: ? 12/31/2013 ? Location: ? [facility] ? Receive Date: ? 014 ? Provider: CLAUDE MADRID DO Copy to: PATRICIA SAAB MD ? Final Pathologic Diagnosis: A. ??SMALL BOWEL, DUODENUM, POLYP, BIOPSY: - Polypoid gastric heterotopia. - Negative for dysplasia. - Deeper sections have been reviewed. B. ??STOMACH, ANTRUM, BIOPSY: - Gastric antral mucosa with reactive (chemical) gastr opathy. C. ??ESOPHAGUS, DISTAL, BIOPSY: - Squamocolumnar junctional mucosa with active reflux esophagitis and focal indefinite for dysplasia. - Deeper sections have been reviewed. D. ??ESOPHAGUS, MID, BIOPSY: - Squamous mucosa with no specific pathologic features . Comment: ? Clinical Business Analyst sections of this case (C) have b een reviewed at the intradepartmental GI consensus conference. Document reviewed and electronically signed by: TANYA LI MD Report ??Date: 01/07/2014 17:25 By the signature above, the attending physician certif ies that he/she has personally conducted a gross and/or microscopic examin ation of the described specimens and rendered or confirmed the above diagnosi s. Specimen(s) Received: A. ?Duodenal polyp B. ? Bx gastric antrum C. ? Bx distal esophagus D. ? Bx mid esophagus Clinical History: H/O Cueva's esophagus Gross Description: A. ?Received in formalin labelled with proper p atient identification (initials P, S) and duodena l polyp are five pink-delgado tissues (0.2 x 0.2 x 0.1 cm to 0.6 x 0.4 x 0.3 cm). Entirely submitted in A1 an d A2. B. ?Received in formalin labelled with proper p atient identification (initials P, S) and biopsy gastric antrum are two pink-delgado tissues (0.3 x 0.3 x 0.3 cm and 0.4 x 0.4 x 0.3 cm). Entirely submitted i n B1. C. ?Received in formalin labelled with proper p atient identification (initials P, S) and biopsy distal esoph robert are four pink-delgado tissues (0.4 x 0.3 x 0.3 cm to 0.8 x 0.2 x 0.2 cm). Entirely submitte d in C1 and C2. D. ?Received in formalin labelled with proper p atient identification (initials P, S) and biopsy mid esophagus are t hree brown-delgado tissues (0.2 x 0.1 x 0.1 cm to 0.6 x 0.3 x 0.2 cm). Entirely submitte d in D1. Dr. Bansal 01/03/2014 08:50 AM End of Report Specimen Performing Organization Address City/State/ZIP Code Phon e Number [facility] [address] [place] [address] SERVICES [facility] [address] [place] [address] documented in this encounter Visit Diagnoses Not on filedocumented in this encounter Care Teams Internal Medicine Nurse Practitioner Relationship Specialty Start Date End Date Patricia Saab MD PCP - General 09/25/[address] [place] [address] [address] [place], [place] [phone] documented as of this encounter
--- OUTSIDE RECORDS SUMMARY | 2021-10-23 00:18 | XMS_ITS | Encounter Summary ---
:1945 Author Organization [facility] Address [address] [place] [address] Care Team Providers Name Role Phone Patricia Davalos MD Primary Care Provider Encounter Details Date Type Department Care Team Description 03/21/2020 Lab Requisition [facility] Horacio Alexander ntact with and Pathology & MD Lorenza (suspected) exposure Laboratory Medicine [address] to other viral - [place], [place] communicable [address] [facility] [address] diseases [place], [place] [phone] (Wo rk) [id number] [phone] Social History Tobacco Use Types Packs/Day Years Used Date Never Assessed Sex Assigned at Date Recorded Not on file documented as of this encounter Discharge Disposition Disposition Code Departure Means Destination Home or Self Care documented in this encounter Plan of Treatment Not on filedocumented as of this encounter Procedures Procedure Name Priority Date/Time Associated Diagnosis Comme nts DO NOT ORDER Today 03/21/2020 7:10 Contact with and Results for this STANDALONE - BROAD EST (suspected) exposure p rocedure are in COVID TEST to other viral the results communicable diseases sectio n. COVID-19 TESTING Today 03/21/2020 7:10 Contact with and Resu lts for this EST (suspected) exposure procedu re are in to other viral the results communicable diseases sectio n. documented in this encounter Results DO NOT ORDER STANDALONE - BROAD COVID TEST (03/21/2020 7:10 EST) COVID-19 rt-PCR NEGATIVE Negative [facility] [...] Organization Address City/State/ZIP Code Phon e Number [facility] [place] COVID-19 TESTING (03/21/2020 7:10 EST) COVID-19 rt-PCR NEGATIVE Negative [facility] Result Comment: LABORATORY 2019-novel Coronavirus (2019 -nCoV) [...] Administration's Emergency Use Authorization. Performing Lab [facility] LABORATORY SERVICES Specimen Swab - Nasal (qualifier value) Performing Organization Address City/State/ZIP Code Phon e Number [facility] [address] [place] [address] SERVICES [facility] [place] documented in this encounter Visit Diagnoses Diagnosis Contact with and (suspected) exposure to other viral communicable diseases documented in this encounter Care Teams Collar Setter Overlock Relationship Specialty Start Date End Date Patricia Davalos MD PCP - General 09/25/[address] [place] [address] [place] [address] documented as of this encounter
--- OUTSIDE RECORDS SUMMARY | 2021-10-23 00:18 | XMS_ITS | Encounter Summary ---
:1945 Author Organization [facility] Address [address] [place] [address] Care Team Providers Name Role Phone Patricia Davalos MD Primary Care Provider Encounter Details Date Type Department Care Team Description 11/10/2018 Results Only [facility]- Angelo Triana, [address] [place] [address] [place] [address] (Wo rk) Social History Tobacco Use Types Packs/Day Years Used Date Never Assessed Sex Assigned at Date Recorded Not on file documented as of this encounter Plan of Treatment Not on filedocumented as of this encounter Procedures Procedure Name Priority Date/Time Associated Diagnosis Comme [facility] SURGICAL PATHOLOGY Routine 11/10/2018 18:13 Resul ts for this EDT procedure are i n the results section. documented in this encounter Results SURGICAL PATHOLOGY (11/10/2018 18:13 EDT) Pathology SURGICAL PATHOLOGY REPORT [facility] MEDICAL Report: Reports generated via electronic interface conta in original data; CENTER LABORATORY however they are lacking the format of the original re port. SERVICES Caution should be taken when reading/interpreting unfo rmatted reports. Name: ? ASHLIE ESTES ? Accession #: ? [id number] ? : ? 1945 (Age: [age]) ??F ? Collect Date: ? 11/10/2018 ? Location: ? [facility] ? Receive Date: ? 9 ? Provider: ANGELO GRIMALDO MD Copy to: ILEANA JARA [facility]QU[employer] F[employer]OR LAYER ? Final Pathologic Diagnosis: A. 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 - See comment. B. STOMACH, PYLORUS, BIOPSY: - Antral mucosa with reactive gastropathy and reparati ve features. C. GASTROESOPHAGEAL JUNCTION, BIOPSY: - Squamous mucosa with features of reflux esophagitis. - Cardia-oxyntic mucosa with reactive features; negative for definite intestinal metaplasia or dysplasia. Comment: Part A: Correlation with surveillance follow-up endosc opy is recommended to ensure completeness of excision of this polypoid lesio n. Similar lesions can arise from duodenum/ ampullary region and pancreatic d ucts. Results were reported to Dr. Grimaldo's office at 9:45 on 11/16/2018 and discussed with nurse Ms. Gladys Ford. Case a lso reviewed at the intradepartmental consensus with Dr. Lisbeth Jeffries who concurs with impression. Document reviewed and electronically signed by: TERRY COFFEY MD Report ??Date: 11/16/2018 10:01 By the signature above, the attending physician certif ies that he/she has personally conducted a gross and/or microscopic examin ation of the described specimens and rendered or confirmed the above diagnosi s. Specimen(s) Received: A. ??Bxs duodenal mass B. ??Bxs pylorus C. ??Bxs GE junction Clinical History: History of Cueva's Gross Description: A. ?Received in formalin labelled with proper p atient identification (initials P, S) and biopsies duodenal mass are five pink-delgado tissues (0.2 x 0.2 x 0.1 cm to 0.5 x 0.4 x 0.2 cm). Entirely submitte d in blocks A1-A2. B. ?Received in formalin labelled with proper p atient identification (initials P, S) and biopsie s pylorus is a single pink-delgado tissue fragment (0.3 x 0.3 x 0.2 cm). Submitted intact in block B1. C. ?Received in formalin labelled with proper p atient identification (initials P, S) and biopsie s GE junction are three pink-delgado tissues (0.3 x 0.2 x 0.2 cm to 0.3 x 0.3 x 0.2 cm). Entirely submitted in block C1. HARESH Desai (ASCP) 11/11/2018 7:42 AM End of Report Specimen Performing Organization Address City/State/ZIP Code Phon e Number [facility] [address] [place] [address] SERVICES documented in this encounter Visit Diagnoses Not on filedocumented in this encounter Care Teams Insulation Professional Relationship Specialty Start Date End Date Patricia Davalos MD PCP - General 09/25/[address] [place] [address] [address] [place], [place] [id number] documented as of this encounter
--- OUTSIDE RECORDS SUMMARY | 2021-10-23 00:18 | XMS_ITS | Encounter Summary ---
:1945 Author Organization [facility] Address [address] [place] [address] Care Team Providers Name Role Phone Patricia Davalos MD Primary Care Provider Encounter Details Date Type Department Care Team Description 09/19/2014 Hospital Encounter [facility] - S Unknown, Pro Judy little MD [address] [facility] [phone] [place] [address] (Work) [phone] Social History Tobacco Use Types Packs/Day Years Used Date Never Assessed Sex Assigned at Date Recorded Not on file documented as of this encounter Discharge Disposition Disposition Code Departure Means Destination Home or Self Penitentiary documented in this encounter Plan of Treatment Not on filedocumented as of this encounter Visit Diagnoses Not on filedocumented in this encounter Care Teams Automotive Exhaust Emissions Technician Relationship Specialty Start Date End Date Patricia Davalos MD PCP - General 09/25/[address] [place] [address] [address] [place], [place] [id number] documented as of this encounter
--- OUTSIDE RECORDS SUMMARY | 2021-10-23 00:18 | XMS_ITS | Encounter Summary ---
:1945 Author Organization [facility] Address [address] [place] [address] Care Team Providers Name Role Phone Patricia Davalos MD Primary Care Provider Encounter Details Date Type Department Care Team Description 11/06/2016 Hospital Encounter [facility]- [facility] Unknown, Provider, [facility] 0 [facility] [phone] [place] [address] (Work) [phone] Social History Tobacco Use Types Packs/Day Years Used Date Never Assessed Sex Assigned at Date Recorded Not on file documented as of this encounter Discharge Disposition Disposition Code Departure Means Destination Home or Self Alf documented in this encounter Plan of Treatment Not on filedocumented as of this encounter Visit Diagnoses Not on filedocumented in this encounter Care Teams Men'S Custom Hair Piece Consultant Relationship Specialty Start Date End Date Patricia Davalos MD PCP - General 09/25/[address] [place] [address] [address] [place], [place] [id number] documented as of this encounter
--- OUTSIDE RECORDS SUMMARY | 2021-10-23 00:18 | XMS_ITS | Encounter Summary ---
:1945 Author Organization [facility] Address [address] [place] [address] Care Team Providers Name Role Phone Patricia Davalos MD Primary Care Provider Encounter Details Date Type Department Care Team Description 04/25/2020 Lab Requisition [facility] Horacio Alexander ntact with and Pathology & MD Lorenza (suspected) exposure Laboratory Medicine [address] to other viral - [place], [place] communicable [address] [facility] [address] diseases [place], [place] [phone] (Wo rk) [id number] [phone] Social History Tobacco Use Types Packs/Day Years Used Date Never Assessed Sex Assigned at Date Recorded Not on file documented as of this encounter Discharge Disposition Disposition Code Departure Means Destination Home or Self Care documented in this encounter Plan of Treatment Not on filedocumented as of this encounter Procedures Procedure Name Priority Date/Time Associated Diagnosis Comme nts COVID-19 TEST [facility] Today 04/25/2020 8:00 Contact with and LAB PCR EST (suspected) exposure to other viral communicable diseases COVID-19 TESTING Today 04/25/2020 8:00 Contact with and Resu lts for this EST (suspected) exposure procedu re are in to other viral the results communicable diseases sectio n. documented in this encounter Results COVID-19 TEST [facility] LAB PCR (04/25/2020 8:00 EST) Specimen Swab - Nasal (qualifier value) Performing Organization Address City/State/ZIP Code Phon e Number [facility] [address] [place] [address] SERVICES COVID-19 TESTING (04/25/2020 8:00 EST) COVID-19 rt-PCR Negative Negative [facility] MEDICAL Result Comment: CENTER LABORATORY Negative results do not prec lude 2019-nCoV infection and should not be used as the sole basis for treatment or other patient management decisions. Negative results must be combined with clinical observa SERVICES tions, patient history, and epidemiological informatio n. This test was developed and its performance characteristics determined by [facility]. It has not been cleared or [...] defined by the FDA Performed on the [employer] Flex RT-PCR System. Performing Lab KRISTIN CDC [facility] Lab [facility] SERVICES Specimen Swab - Nasal (qualifier value) Performing Organization Address City/State/ZIP Code Phon e Number [facility] [address] [place] [address] SERVICES documented in this encounter Visit Diagnoses Diagnosis Contact with and (suspected) exposure to other viral communicable diseases documented in this encounter Care Teams Boat Outfitter Relationship Specialty Start Date End Date Patricia Davalos MD PCP - General 09/25/[address] [place] [address] [address] [place], [place] [phone] documented as of this encounter
--- OUTSIDE RECORDS SUMMARY | 2021-10-23 00:18 | XMS_ITS | Encounter Summary ---
:1945 Author Organization [facility] Address [address] [place] [address] Care Team Providers Name Role Phone Patricia Davalos MD Primary Care Provider Encounter Details Date Type Department Care Team Description 04/18/2020 Lab Requisition [facility] Horacio Alexander ntact with and Pathology & MD Lorenza (suspected) exposure Laboratory Medicine [address] to other viral - [place], [place] communicable [address] [facility] [address] diseases [place], [place] [phone] (Wo rk) [id number] [phone] Social History Tobacco Use Types Packs/Day Years Used Date Never Assessed Sex Assigned at Date Recorded Not on file documented as of this encounter Discharge Disposition Disposition Code Departure Means Destination Home or Self Care documented in this encounter Plan of Treatment Not on filedocumented as of this encounter Procedures Procedure Name Priority Date/Time Associated Diagnosis Comme nts DO NOT ORDER Today 04/18/2020 7:50 Contact with and Results for this STANDALONE - BROAD EST (suspected) exposure p rocedure are in COVID TEST to other viral the results communicable diseases sectio n. COVID-19 TESTING Today 04/18/2020 7:50 Contact with and Resu lts for this EST (suspected) exposure procedu re are in to other viral the results communicable diseases sectio n. documented in this encounter Results DO NOT ORDER STANDALONE - BROAD COVID TEST (04/18/2020 7:50 EST) COVID-19 rt-PCR NEGATIVE Negative [facility] [...] Administration's Emergency Use Authorization. Specimen Swab - Entire nasopharynx (body structur e) Performing Organization Address City/State/ZIP Code Phon e Number [facility] [place], [place] COVID-19 TESTING (04/18/2020 7:50 EST) COVID-19 rt-PCR NEGATIVE Negative [facility] Result Comment: LABORATORY 2019-novel Coronavirus (2018 -nCoV) not detected by the qRT-PCR assay. [...] Administration's Emergency Use Authorization. Performing Lab [facility] LABORATORY SERVICES Specimen Swab - Entire nasopharynx (body structur e) Performing Organization Address City/State/ZIP Code Phon e Number [facility] [address] [place] [address] SERVICES [facility] [place], [place] documented in this encounter Visit Diagnoses Diagnosis Contact with and (suspected) exposure to other viral communicable diseases documented in this encounter Care Teams Solo Musician Relationship Specialty Start Date End Date Patricia Davalos MD PCP - General 09/25/[address] [place] [address] [address] [place], [place] [address] documented as of this encounter
--- OUTSIDE RECORDS SUMMARY | 2021-10-23 00:18 | XMS_ITS | Encounter Summary ---
:1945 Author Organization [facility] Address [address] [place] [address] Care Team Providers Name Role Phone Unavailable Primary Care Provider Unavailable Encounter Details Date Type Department Care Team Description 12/10/2001 Results Only [facility] - Kofi Pringle MD conversion [address] [place] [phone] Social History Tobacco Use Types Packs/Day Years Used Date Never Assessed Sex Assigned at Date Recorded Not on file documented as of this encounter Plan of Treatment Not on filedocumented as of this encounter Procedures Procedure Name Priority Date/Time Associated Diagnosis Comme nts SURGICAL PATHOLOGY Routine 12/10/2001 0:00 EDT Re sults for this procedure are i n the results section. documented in this encounter Results SURGICAL PATHOLOGY (12/10/2001 0:00 EDT) Pathology Report: SURGICAL PATHOLOGY REPORT BRIGHT A FIFIMEGHANN Reports generated via electronic interface contain iwona ginal data; LAB however they are lacking the format of the original re port. Caution should be taken when reading/interpreting unfo rmatted reports. Name: ? ASHLIE ESTES ? Accession #: ? [id number] ? : ? 1945 (Age: 56) ??F ? Collect Date: ? 12/10/2001 ? Location: ? [facility] ? Receive Date: ? 002 ? Provider: VINICIUS ZENG MD Copy to: KRISTIE SAAB MD ? Final Pathologic Diagnosis: A. ?Colon, 12.0 cm, polypectomy: 1. ?Fragments of tubular adenoma. B. ?Colon, base of polyp, biopsies: 1. ?Colonic mucosa with no adenomatous ch anges. C. ?Stomach, gastric polyp, biopsy: 1. ?Fundic gland polyp. D. ?Gastroesophageal junction, biopsies: 1. 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 2. ?Carlos sta in negative for Helicobacter pylori-like microorganisms. 3. ?No dysplasia identified. 4. ?Squamous epithelium with reactive mayi nges. Document reviewed and electronically signed by: JOE HAYDEN MD Report ??Date: 12/15/2001 12:56 By the signature above, the attending physician certif ies that he/she has personally conducted a gross and/or microscopic examin ation of the described specimens and rendered or confirmed the above diagnosi s. Specimen(s) Received: A. ?Polyp at 12 cm (#1) B. ?Base of polyp (#2) C. ?Gastric polyp bx (#3) D. ?GE junction (#4) Clinical History: ? Anemia; FHx colon CA (mother age 50) Gross Description: ? Received in [employer] fixative labelled Estes and polyp at 12 cm are seven delgado-pink friable s oft tissue fragments ranging from 0.2 x 0.2 x 0.2 cm to 1.3 x 0.7 x 0.6 cm. ??The margin of resection is not identified on the larger tissue. ??The larger tissue is longitudinally bisected and entirely submitted as (A1). ??The smaller tissue fragments are submitt ed entirely as (A2) and (A3). Received in [employer] s fixa tive labelled Estes and base of polyp are two delgado-pink 0.4 x 0.2 x 0.2 cm soft tissue fragment s. ??The specimen is entirely submitted as (B). Received in [employer] s fixa tive labelled Estes and gastric bx polyp is a delgado-pink 0.2 x 0.2 x 0.2 cm soft tissue fragment. ??Th e specimen is entirely submitted as (C). [facility] fixative labelled Pears on and GE junction are two delgado-pink 0.2 x 0.2 x 0.2 cm soft tissue fragment s. ??The specimen is entirely submitted as (D). ??(Lenka Reyes)/bill End of Report Specimen Performing Organization Address City/State/ZIP Code Phon e Number [facility] [address] [place] [address] SERVICES [facility] [address] [place] [address] documented in this encounter Visit Diagnoses Not on filedocumented in this encounter
--- OUTSIDE RECORDS SUMMARY | 2021-10-23 00:18 | XMS_ITS | Encounter Summary ---
:1945 Author Organization [facility] Address [address] [place] [address] Care Team Providers Name Role Phone Unavailable Primary Care Provider Unavailable Encounter Details Date Type Department Care Team Description 05/21/2011 Results Only [facility] Felice Saab MD Laboratory Services - [address] [place] [address] [place] [address] [place] [address] [phone] Social History Tobacco Use Types Packs/Day Years Used Date Never Assessed Sex Assigned at Date Recorded Not on file documented as of this encounter Plan of Treatment Not on filedocumented as of this encounter Procedures Procedure Name Priority Date/Time Associated Diagnosis Comme nts PAP TEST- RESULT Routine 05/21/2011 0:00 EST Resu lts for this ONLY procedure are i n the results section. documented in this encounter Results PAP TEST- RESULT ONLY (05/21/2011 0:00 EST) Pathology Report: CYTOPATHOLOGY REPORT [facility] Reports generated via electronic interface contain iwona ginal data; however they are lacking the format of the original re port. Caution should be taken when reading/interpreting unfo rmatted reports. Name: ? ASHLIE ESTES ? Accession #: ? [id number] ? : ? 1945 (Age: 65) ??F ?Collect Da te: ? 05/21/2011 ? Location: ? [facility] ? Receive Date: ? 012 ? Provider: PATRICIA SAAB MD Copy to: ? Final Report SPECIMEN ADEQUACY ? Satisfactory for Evaluation - assessment of transformation zone component not appl icable ( e.g. atrophy, vaginal sample, hysterectomy) GENERAL CATEGORIZATION ? Negative for Intraepithelial Lesion or Malignan cy ?? Menstural/ Status: ??Post Menopausal Previous Gynecologic Pathology: Carcinoma: Cervical Treatment History: Cone biopsy: Conization Specimen/Source: ??Pap Test, Cervix/Endocervix, ThinPr ep Imaging System with manual evaluation Document reviewed and electronically signed by: ? Patricia Nava, [facility](ASCP) ? Report ??Date: 05/27/2011 11:53 HPV with Pap Test ? Date Ordered: ? 05/24/2011 ? Status: ?? Signed Out ?Date Complete: ? 05/29/2011 ? By: ??S ystem Interface ? Date Reported: ? 05/29/2011 ? Interpretation RESULT: Negative for HPV types 16, 18, 31, 33, 35, 39, 45, 51, 52, 56, 58, 59, and 68. Comments Document reviewed and electronically signed by: ? System Interface ? Report date: 05/29/2011 By the signature above, the attending physician certif ies that he/she has personally conducted a gross and/or microscopic examin ation of the described specimens and rendered or confirmed the above diagnosi s. End of Report Specimen Performing Organization Address City/State/ZIP Code Phon e Number [facility] [address] [place] [address] SERVICES [facility] [address] [place] [address] documented in this encounter Visit Diagnoses Not on filedocumented in this encounter
--- OUTSIDE RECORDS SUMMARY | 2021-10-23 00:18 | XMS_ITS | Encounter Summary ---
:1945 Author Organization [facility] Address [address] [place] [address] Care Team Providers Name Role Phone Patricia Davalos MD Primary Care Provider Encounter Details Date Type Department Care Team Description 04/11/2020 Lab Requisition [facility] Horacio Alexander ntact with and Pathology & MD Lorenza (suspected) exposure Laboratory Medicine [address] to other viral - [place], [place] communicable [address] [facility] [address] diseases [place], [place] [phone] (Wo rk) [address] [phone] Social History Tobacco Use Types Packs/Day Years Used Date Never Assessed Sex Assigned at Date Recorded Not on file documented as of this encounter Discharge Disposition Disposition Code Departure Means Destination Home or Self Care documented in this encounter Plan of Treatment Not on filedocumented as of this encounter Procedures Procedure Name Priority Date/Time Associated Diagnosis Comme nts DO NOT ORDER Today 04/11/2020 8:00 Contact with and Results for this STANDALONE - BROAD EST (suspected) exposure p rocedure are in COVID TEST to other viral the results communicable diseases sectio n. COVID-19 TESTING Today 04/11/2020 8:00 Contact with and Resu lts for this EST (suspected) exposure procedu re are in to other viral the results communicable diseases sectio n. documented in this encounter Results DO NOT ORDER STANDALONE - BROAD COVID TEST (04/11/2020 8:00 EST) COVID-19 rt-PCR NEGATIVE Negative [facility] [...] Organization Address City/State/ZIP Code Phon e Number [facility] [place], [place] COVID-19 TESTING (04/11/2020 8:00 EST) COVID-19 rt-PCR NEGATIVE Negative [facility] Result Comment: LABORATORY 2019-novel Coronavirus (2019 -nCoV) [...] Administration's Emergency Use Authorization. Performing Lab [facility] LABORATORY SERVICES Specimen Swab Performing Organization Address City/State/ZIP Code Phon e Number [facility] [address] [place] [address] SERVICES [facility] [place], [place] documented in this encounter Visit Diagnoses Diagnosis Contact with and (suspected) exposure to other viral communicable diseases documented in this encounter Care Teams Lieutenant General Relationship Specialty Start Date End Date Patricia Davalos MD PCP - General 09/25/[address] [place] [address] [place] [address] documented as of this encounter
--- NOTE | 2021-12-21 08:00 | DI.MAMMO_ITS ---
Exam(s) MAMMO SCREENING EXAM: MAMMO SCREENING CLINICAL HISTORY: screening,z12.39. TECHNIQUE: Bilateral full field digital CC and MLO mammographic images were obtained with 3D tomosyn thesis and utilizing computer aided detection (CAD). COMPARISON: Prior mammograms were reviewed, the most recent being September 2020. FINDINGS: Calcified nodule in the right breast is unchanged from numerous prior studies and is probably a fibro adenoma. There are no new spiculated masses nor malignant appearing microcalcification groups. There is no significant architectural distortion nor skin thickening-retraction. IMPRESSION: No radiographic evidence of malignancy. Stable benign findings. BI-RADS Category 2 - Benign Findings Breast Density - Category B - Scattered areas of fibroglandular density Breast density Category C or D implies that the patient has dense breast tissue. Dense breast tissue can make it harder to find cancer on a mammogram. Dense breast tissue is also associated with an incr eased risk of breast cancer. This information about the result of the mammogram report was provided to the patient to raise their awareness. Use this report when you speak with the patient about their risks for breast cancer, which includes their family history. At that time, you may recommend additional screening tests (Ultrasoun d or MRI) as these tests may add significant information. A negative radiographic report should not delay biopsy if a dominant or clinically suspicious mass is present. Up to ten percent of cancers are not identified on mammography. A negative report may reinforce clinical impression. Adenosis and dense breasts may obscure an underlying neoplasm. False positive reports average 6 to 10%. Patient will receive a letter notifying them of these results.
== END ==
PROVIDERS: PCP Nurse Practitioner Family; Visit Provider Nurse Practitioner Family
DX: Z12.31 Encounter for screening mammogram for malignant neoplasm of breast (principal)
CPT/HCPCS: 77063; 77067

== ENCOUNTER 2022-07-23 02:34 | Outpatient (CLI) | payer MEDICARE, SELFPAY ==
[2022-07-23 12:33] LABS: Anion Gap 11.2 mmol/L (3-11); BUN 23 mg/dL (7-18); CO2 25.8 mmol/L (21.0-32.0); Calcium 9.2 mg/dL (8.5-10.1); Chloride 105 mmol/L (98-107); Estimated GFR 58.75 (mL/min/1.73m2); Glucose 91 mg/dL (74-106); Potassium 3.8 mmol/L (3.5-5.1); Sodium 142 mmol/L (136-145)
[2022-07-23 12:34] LABS: Hemoglobin A1C 4.9 % (<5.7)
[2022-07-23 12:49] LABS: Calculated LDL 95 mg/dL (<100); Cholesterol 213 mg/dL (<200); HDL Cholesterol 70 mg/dL (40-60); Triglyceride 243 mg/dL (<150)
== END 2022-07-23 02:35 | disposition home or self-care (01) ==
LOC: LOS 02:34
PROVIDERS: PCP Nurse Practitioner Family; Visit Provider Nurse Practitioner Family
DX: I10 Essential (primary) hypertension (principal); E78.5 Hyperlipidemia, unspecified; R79.89 Other specified abnormal findings of blood chemistry
CPT/HCPCS: 36415; 80048; 80061; 83036

== ENCOUNTER 2022-08-30 00:43 | Outpatient (CLI) | payer MEDICARE, SELFPAY ==
--- NOTE | 2022-08-30 07:45 | DI.RAD_ITS ---
Exam(s) XR KNEE LT 3V AP,LAT,GUSTAVO EXAM: XR KNEE LT 3V AP,LAT,GUSTAVO CLINICAL HISTORY: fall, left knee pain,M25.562,W19.XXXA. TECHNIQUE: 2D digital imaging was performed. COMPARISON: No exams were available for comparison FINDINGS: 3 views No evidence of fracture. Small joint effusion noted. Mouth minimal narrowing of the medial compartm ent. No osteophytes. Lateral compartment unremarkable. Patellofemoral compartment appears unremark able. Bone density normal. No osseous lesions. IMPRESSION: Minimal degenerative changes. Small joint effusion. Bone density normal. DATA REPOSITORY: RADIATION DOSE DELIVERED:
== END 2022-08-30 01:03 ==
LOC: DI 00:43
PROVIDERS: PCP Nurse Practitioner Family; Visit Provider Nurse Practitioner Family
DX: M25.562 Pain in left knee (principal); W19.XXXA Unspecified fall, initial encounter; M25.462 Effusion, left knee
CPT/HCPCS: 73562

== ENCOUNTER 2023-07-28 05:03 | Outpatient (CLI) | payer MEDICARE, SELFPAY ==
[2023-07-28 12:15] LABS: HCT 35.3 % (36.0-46.0); HGB 11.7 g/dL (11.2-15.7); MCH 31.6 pg (27.0-33.0); MCHC 33.1 % (32.0-36.0); MCV 95 fL (80-95); MPV 11.2 fL (8.0-11.0); Platelet Count 269 10^3/uL (130-400); RDW 17.1 % (11.7-14.6); RDW-SD 59.3 fL
[2023-07-28 12:27] LABS: Anion Gap 9.9 mmol/L (3-11); BUN 23 mg/dL (7-18); CO2 29.1 mmol/L (21.0-32.0); CREATININE 0.9 mg/dL (0.55-1.02); Calcium 8.7 mg/dL (8.5-10.1); Chloride 104 mmol/L (98-107); Estimated GFR 66.26 (mL/min/1.73m2); Glucose 86 mg/dL (74-106); Potassium 3.6 mmol/L (3.5-5.1); Sodium 143 mmol/L (136-145)
[2023-07-28 19:55] LABS: Hepatitis C Ab w Rflx HCV PCR Negative (Negative)
[2023-07-30 09:21] LABS: Ferritin 147 ng/mL (8-252)
== END 2023-07-28 05:04 | disposition home or self-care (01) ==
LOC: LOS 05:03
PROVIDERS: PCP Nurse Practitioner Family; Visit Provider Nurse Practitioner Family
DX: I10 Essential (primary) hypertension (principal); E78.5 Hyperlipidemia, unspecified; K21.9 Gastro-esophageal reflux disease without esophagitis; Z11.59 Encounter for screening for other viral diseases; D64.9 Anemia, unspecified
CPT/HCPCS: 36415; 80048; 85027; 86803; 82607; 82728; 82746

== ENCOUNTER 2024-04-28 16:05 | Emergency (ER) | payer MEDICARE, SELFPAY ==
[2024-04-28 16:16] VITALS: BP 117/76; PULSE 69; RESP 20; TEMP 36.9; O2SAT 95
--- NOTE | 2024-04-28 17:15 | DI.RAD_ITS ---
Exam(s) XR FOOT LT COMPLETE EXAM: XR FOOT LT COMPLETE CLINICAL HISTORY: fall, L ankle/foot pain. TECHNIQUE: 2D digital imaging was performed. Three views. COMPARISON: CR XR ANKLE LT COMPLETE from 04/28/2024 FINDINGS: BONES: No acute fracture is present. No bony destructive lesion is seen. JOINTS: No dislocation present. Severe degenerative changes with prominent spurring at the 2nd throu gh 4th tarsal metatarsal joints. Mild degenerative changes 5th tarsal metatarsal joint. SOFT TISSUE: Vascular calcifications. Diffuse soft tissue swelling. No foreign body or abnormal gas collection. 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 Soft tissue swelling. DATA REPOSITORY: RADIATION DOSE DELIVERED:
--- NOTE | 2024-04-28 17:15 | DI.RAD_ITS ---
Exam(s) XR ANKLE LT COMPLETE EXAM: XR ANKLE LT COMPLETE CLINICAL HISTORY: fall, L ankle/foot pain TECHNIQUE: 2D digital imaging was performed. Three views. COMPARISON: CR XR FOOT LT COMPLETE from 04/28/2024 FINDINGS: BONES: No acute fracture is present. No bony destructive lesion is seen. JOINTS:The ankle mortise is normally aligned. Joint space is maintained. SOFT TISSUE: Swelling over both malleoli. Vascular calcifications. IMPRESSION: Soft tissue swelling. No acute bony abnormality. DATA REPOSITORY: RADIATION DOSE DELIVERED:
--- NOTE | 2024-04-28 17:24 | W.ED.GENAD ---
Discharge Plan Disposition Patient Disposition: Home Condition: Stable Discharge Details Clinical Impression: Sprain of left ankle Primary Care Provider: Mary Lou Palacios ED Provider: Cam Plascencia Home Meds and New Rx's Prescriptions: Continued calcium carbonate-vitamin D3 600 mg-25 mcg (1,000 unit) capsule 1 cap PO DAILY Qty: 90 3RF duloxetine 60 mg capsule,delayed release(DR/EC) 60 mg PO DAILY Qty: 90 3RF Rx Instructions: 1 tablet daily multivitamin [Multi-Day] 1 EACH tablet 1 ea PO DAILY simvastatin 40 mg tablet 40 mg PO DAILY Qty: 90 3RF lisinopril 10 mg tablet 10 mg PO DAILY Qty: 90 3RF chlorthalidone 25 mg tablet 25 mg PO DAILY Qty: 90 3RF Rx Instructions: Take 1 tablet once a day Discharge Instructions Instructions: Ankle Sprain ED Additional Instructions: You were seen in the emergency department for the sprain of your left ankle, we will place you in an Timoteo wrap, please rest, ice, compress and elevate the ankle often over the next 4 to 5 days. Take 650 mg of Tylenol every 6 hours, use topical Voltaren gel in the area 2-3 times per day, ice to complete numbness then let rewarm. Use a cane as needed to ambulate, I did provide you with a work note, please follow-up with orthopedics for pain lasting longer than 2 weeks, return to the emergency department for severe increase in pain or signs of neurovascular compromise. Stand Alone Forms: Work Release Referrals: [facility] [Provider Group] Mary Lou Palacios NP [Primary Care Provider] - HPI General Date/Time Provider Initiated Documentation: 04/28/24 16:45. HPI Narrative: 78 year-old female presents to ED today by POV/ambulating with antalgic gait with her daughter with a chief complaint of L ankle pain/swelling after a fall with onset two days ago. Quality described as swelling along lateral and anterior ankle, no radiation to numbness/tingling, significant bruising, endorses normal ROM, endorses pain with ambulation, no proximalcalf pain. Severity is described as moderate. Palliating factors include Tylenol without relief. Provoking factors include nothing specific. Patient not anticoagulated. Related Data Home Medications ?Medication ?Instructions ?Recorded ?Confirmed multivitamin (Multi-Day tablet) 1 ea PO DAILY 07/16/12 08/08/23 calcium 600 mg (as 1 cap PO DAILY #90 caps 08/01/22 08/08/23 carbonate)-vitamin D3 25 mcg (1,000 unit) capsule duloxetine 60 mg capsule,delayed 60 mg PO DAILY #90 caps 08/08/23 08/08/23 release simvastatin 40 mg tablet 40 mg PO DAILY #90 tabs 12/10/23 chlorthalidone 25 mg tablet 25 mg PO DAILY #90 tabs 12/18/23 lisinopril 10 mg tablet 10 mg PO DAILY #90 tabs 12/18/23 Previous Rx's ?Medication ?Instructions ?Recorded calcium 600 mg (as 1 cap PO DAILY #90 caps 08/01/22 carbonate)-vitamin D3 25 mcg (1,000 unit) capsule duloxetine 60 mg capsule,delayed 60 mg PO DAILY #90 caps 08/08/23 release simvastatin 40 mg tablet 40 mg PO DAILY #90 tabs 12/10/23 chlorthalidone 25 mg tablet 25 mg PO DAILY #90 tabs 12/18/23 lisinopril 10 mg tablet 10 mg PO DAILY #90 tabs 12/18/23 Allergies Allergy/AdvReac Type Severity Reaction Status Date / Time cephalexin (Cephalexin) Allergy Mild Rash Verified 08/08/23 08:15 clindamycin Allergy Mild Rash Verified 08/08/23 08:15 hydrocodone Allergy Mild itching Verified 08/08/23 08:15 Penicillins Allergy Unknown Rash Verified 08/08/23 08:15 atorvastatin AdvReac Mild Myalgias Verified 08/08/23 08:15 General Stated Complaint: Orthopedic ORIANA: 4 Review of Systems All systems reviewed & are unremarkable except as noted in HPI and below Exam Narrative Exam Narrative: GENERAL APPEARANCE: Well-nourished, non-toxic, awake and alert, atraumatic, no acute distress. SKIN: Warm, pink, dry, intact, without rashes/lesions/ulcerations. HEAD: Normocephalic, atraumatic, normal hair distribution for gender/age. EYES: Normal conjunctiva, no exudates on lids/lashes. ENT: Nares patent, no circumoral cyanosis, no facial swelling NECK: Supple, trachea midline, painless cervical ROM. LUNGS/CHEST: Non-labored respirations, normal A/P diameter, symmetrical expansion, no chest wall deformity HEART (CV/PV): Regular rate, no peripheral edema, no JVD. ABDOMEN: Soft, non-distended, no guarding. MSK: Normal ROM, no swelling/deformity to bilateral UEs or LEs, moving all extremities without weakness, no cyanosis, spine midline without tenderness, normal curvature, mild swelling to left ankle and foot, neurovascularly intact with brisk capillary refill, sensation intact, left dorsalis pedis pulse 2+, right side dominant NEURO: Mental Status AAOx4 - alert to person, place, time, events No facial droop, no forehead involvement. Motor: No focal weakness - strength 5/5 in bilateral UEs and LEs, proximal and distal, symmetric. Sensory: sensation intact to light touch globally. Gait normal: patient ambulated without ataxia into ED room. PSYCH: euthymic, cooperative, pleasant, appropriate speech Course Vital Signs Vital signs: Vital Signs Temperature 36.9 C 04/28/24 16:16 Pulse 69 04/28/24 16:16 Respiratory Rate 20 04/28/24 16:16 Blood Pressure 117/76 04/28/24 16:16 Pulse Oximetry 95 04/28/24 16:16 Temperature 36.9 C 04/28/24 16:16 Temperature Source Temporal Artery Scan 04/28/24 16:16 Pulse 69 04/28/24 16:16 Respiratory Rate 20 04/28/24 16:16 Blood Pressure 117/76 04/28/24 16:16 Blood Pressure Position Sitting 04/28/24 16:16 Pulse Oximetry 95 04/28/24 16:16 Oxygen Delivery Method Room Air 04/28/24 16:16 Oxygen Flow Rate 0 04/28/24 16:16 Medical Decision Making This dictation utilizes [id number] dictation software and may contain unedited grammatical errors. 78 year-old female presents to ED today by POV/ambulating with antalgic gait with her daughter with a chief complaint of L ankle pain/swelling after a fall with onset two days ago. Quality described as swelling along lateral and anterior ankle, no radiation to numbness/tingling, significant bruising, endorses normal ROM, endorses pain with ambulation, no proximalcalf pain. Severity is described as moderate. Palliating factors include Tylenol without relief. Provoking factors include nothing specific. Patients' medical history: Hypertension, GERD, status post Sae fundoplication. Family and social history: Noncontributory. Pertinent exam findings / vital signs include mild swelling to left ankle and foot, neurovascularly intact with brisk capillary refill, sensation intact, left dorsalis pedis pulse 2+, right side dominant. Differential / pathologies of concern include sprain, fracture. Diagnostic studies of: -XR L Ankle & Foot - no acute fracture seen. Interventions of: -timoteo wrap. ED Course/Assessment/Plan: 78-year-old female suffered a fall 2 days ago has left ankle pain and swelling, worse with ambulation, no acute fracture on x-ray likely ankle sprain, right counseled on RICE therapy, using Tylenol and topical Voltaren to the area, Timoteo wrap, following up with orthopedics for pain lasting significantly longer than 2 weeks, recommend cane as needed. Findings not consistent with fracture, neurovascular compromise. Disposition of sprain of left ankle. Patient verbalized understanding of the plan and return to ED criteria and engaged in shared decision making. Medical Records Medical records reviewed: Yes I reviewed the patient's medical records. Imaging Data Radiologic Study: Attestation: I personally reviewed and interpreted this imaging study as follows: Imaging: X-Ray Radiologist's impression: EXAM: XR ANKLE LT COMPLETE CLINICAL HISTORY: fall, L ankle/foot pain TECHNIQUE: 2D digital imaging was performed. Three views. COMPARISON: CR XR FOOT LT COMPLETE from 04/28/2024 FINDINGS: BONES: No acute fracture is present. No bony destructive lesion is seen. JOINTS:The ankle mortise is normally aligned. Joint space is maintained. SOFT TISSUE: Swelling over both malleoli. Vascular calcifications. IMPRESSION: Soft tissue swelling. No acute bony abnormality. Radiologic Study #2: Attestation: I personally reviewed and interpreted this imaging study as follows: Imaging: X-Ray Radiologist's impression: EXAM: XR FOOT LT COMPLETE CLINICAL HISTORY: fall, L ankle/foot pain. TECHNIQUE: 2D digital imaging was performed. Three views. COMPARISON: CR XR ANKLE LT COMPLETE from 04/28/2024 FINDINGS: BONES: No acute fracture is present. No bony destructive lesion is seen. JOINTS: No dislocation present. Severe degenerative changes with prominent spurring at the 2nd through 4th tarsal metatarsal joints. Mild degenerative changes 5th tarsal metatarsal joint. SOFT TISSUE: Vascular calcifications. Diffuse soft tissue swelling. No foreign body or abnormal gas collection. 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 Soft tissue swelling. Quality:SDOH Health Related Social Needs: Health related social needs problems related to housing/economic circumstances (Z59.89) PFSH All Active Problems (Updated 04/28/24 @ 18:05 by HARESH Stafford) Sprain of left ankle (Acute) Essential hypertension (Chronic) Hyperlipidemia (Chronic) History of Cueva's esophagus (Chronic) s/p Sae 2002. Osteoarthritis (Chronic) Lumbar back pain with radiculopathy affecting right lower extremity (Chronic) GERD (gastroesophageal reflux disease) (Chronic) Obesity (BMI 30-39.9) (Chronic) Medical History (Updated 04/28/24 @ 18:05 by HARESH Stafford) Benign tubular adenoma of duodenum Followed by [facility] [place] Serrated adenoma of colon On 2023 colonoscopy, repeat in 5yrs Barretts esophagus s/p Sae 2002. EGD q1-2yrs Surgical History History of esophagogastroduodenoscopy (EGD) S/P colonoscopy (11/06/16) History of bilateral ligation of fallopian tubes Status post LEEP (loop electrosurgical excision procedure) of cervix (~1992) Status post Sae fundoplication (04/13/02) S/P tonsillectomy Family History Mother , at 77 of colon cancer Essential hypertension Hyperlipidemia Type 2 diabetes mellitus Colon cancer Father , at 67 Type 2 diabetes mellitus Sister , at 73 of metastatic lung cancer Hyperlipidemia Hypertension Lung cancer Sister No problems noted. Sister No problems noted. Sister No problems noted. Sister No problems noted. Brother Cancer Brother No problems noted. Brother No problems noted. Son Hypertension Hyperlipidemia Son Hypertension Hyperlipidemia Alcohol abuse Daughter Depression Maternal Grandfather Heart disease Maternal Grandmother Heart disease Hypertension Paternal Grandfather Hypertension Heart disease Paternal Grandmother Heart disease Social History (Updated 08/18/23 @ 16:24 by Hilda Meléndez) Smoking/Tobacco Use Status: Never Second Hand Exposure: Yes Smoking risk assessment performed?: Yes Alcohol Intake: current Alcohol Intake frequency: holidays/special occasions only Alcohol type: hard liquor Drug use: Never Substance use type: does not use Caregiver/Support person: No Household members: none Housing: house Communication Needs: None Do you need help understanding health information?: Rarely Pets and animals: Yes Pets and animals: cat(s) and dog(s) Sexually active: No Do you think of yourself as: straight/heterosexual Current gender identity: female What is your relationship status?: How often do you talk on the phone with friends or family?: three or more times per week How often do you get together with friends or relatives?: once per week How often do you attend methodist or faith services?: 1-3 times per year Do you belong to any clubs or organized social groups?: no Panel score (0-1 are the most socially isolated patients): 1 NHANES result reviewed/action taken: No What type of physical activity do you participate in: walking Duration: 15-30 minutes/day Frequency: 3-4 times per week Yoly/Islam: Congregational Special yoly needs: No Seatbelt use: always Helmet use: No Drive intox or ride w/intox commercial driver's license driver: No Do you feel safe at home: Yes Female Reproductive History Menstrual Menopause type: natural History History 4 Para Hx # Term Pregnancies Multiple births Hx # Pregnancies Ectopic pregnancies AB induced Hx Number of Living Children 3 AB spontaneous 1
== END 2024-04-28 18:16 | disposition home or self-care (01) ==
PROVIDERS: Emergency Provider Physician Assistant; PCP Nurse Practitioner Family
DX: S93.402A Sprain of unspecified ligament of left ankle, initial encounter (principal); X58.XXXA Exposure to other specified factors, initial encounter; Z59.89 Other problems related to housing and economic circumstances
CPT/HCPCS: 99284; 73610; 73630; 99283

== ENCOUNTER 2024-08-26 03:26 | Outpatient (CLI) | payer MEDICARE, SELFPAY ==
[2024-08-26 12:28] LABS: HGB 11.7 g/dL (11.2-15.7); MCH 31.1 pg (27.0-33.0); MCHC 32.5 % (32.0-36.0); MCV 96 fL (80-95); MPV 11.5 fL (8.0-11.0); Platelet Count 215 10^3/uL (130-400); RBC 3.76 10^6/uL (3.93-5.22); RDW 17.2 % (11.7-14.6)
[2024-08-26 13:21] LABS: Anion Gap 8.2 mmol/L (3-11); BUN 23 mg/dL (7-18); CO2 29.8 mmol/L (21.0-32.0); CREATININE 0.9 mg/dL (0.55-1.02); Calcium 9.1 mg/dL (8.5-10.1); Chloride 103 mmol/L (98-107); Estimated GFR 65.84 (mL/min/1.73m2); Glucose 113 mg/dL (74-106); Potassium 3.3 mmol/L (3.5-5.1); Sodium 141 mmol/L (136-145); Vitamin B12 255 pg/mL (193-986)
== END 2024-08-26 03:27 | disposition home or self-care (01) ==
PROVIDERS: PCP Nurse Practitioner Family; Visit Provider Nurse Practitioner Family
DX: I10 Essential (primary) hypertension (principal); Z87.19 Personal history of other diseases of the digestive system
CPT/HCPCS: 36415; 80048; 85027; 82607

== ENCOUNTER 2024-09-23 00:48 | Outpatient (CLI) | payer MEDICARE, SELFPAY ==
--- NOTE | 2024-09-23 09:30 | DI.DEXA_ITS ---
Exam(s) XR DEXA BONE DENSITY W/WO NEHA EXAM: XR DEXA BONE DENSITY W/WO NEHA CLINICAL HISTORY: screening for osteoporosis in postmenopausal status,z78.0 TECHNIQUE: COMPARISON: DX DEXA BONE DENSITY WITH NEHA from 07/11/2009 FINDINGS: Lateral Spine Image: Unremarkable. No compression deformities identified. Left hip: Total T-Score: -0.2. This compares to 0.4 on the prior examination. Total Z-Score: 1.7 T- and Z-scores: There is no evidence of osteoporosis. Lumbar Spine: Total T-Score: 1.4. This compares to -0.5 on the prior examination. Total Z-Score: 3.9 T- and Z-scores: Within normal limits. IMPRESSION: No evidence of osteoporosis.
== END 2024-09-23 01:08 ==
LOC: DI 00:48
PROVIDERS: PCP Nurse Practitioner Family; Visit Provider Nurse Practitioner Family
DX: Z13.820 Encounter for screening for osteoporosis (principal); Z78.0 Asymptomatic menopausal state
CPT/HCPCS: 77080